=== PATIENT | female | born 1940 | race Caucasian/White ===

== ENCOUNTER → 2020-06-20 10:47 | Outpatient (BNVA) | payer MEDICARE, SELFPAY | PROVIDERS: PCP Internal Medicine; Visit Provider Surgery | DX: C44.722 Squamous cell carcinoma of skin of right lower limb, including hip (principal) | CPT/HCPCS: 99212 ==

== ENCOUNTER 2020-06-25 10:21 | Outpatient (REF) | payer MEDICARE, SELFPAY ==
[2020-06-25 10:53] VITALS: BP 170/84; PULSE 82; RESP 18; TEMP 36; O2SAT 99; BMI 28.3
--- NOTE | 2020-06-25 12:15 | W.PM.OPN ---
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 She presents now with a new hard lesion located in the right ellis at the site of a previous excision consistent with a recurrence squamous cell carcinoma. She presents today for wide excision. Operative findings: Patient was found to have a 1.5 cm raised hard lesion in the right ellis which was excised using a 2 mm margin circumferentially. The wounds were closed primarily. Specimen: Skin lesion right ellis Estimated blood loss: 5 mL Complications: None Procedure details: Patient was brought to the OR and placed in a supine position. A surgical time-out was called the consent confirmed. Right leg was prepped with ChloraPrep and draped in a sterile fashion. Local anesthesia consisting of 1% lidocaine with epinephrine was then infiltrated circumferentially around the lesion in the right ellis. An elliptical incision oriented longitudinally was then created with a scalpel. This carried out through subcutaneous tissue down to muscle fascia. It was then excised off the muscle fascia. Hemostasis was assured using electrocautery. The lesion was passed off the table and sent to pathology for further examination. Wounds were irrigated with saline solution and suctioned dry. Dermis was then reapproximated using interrupted 3-0 Polysorb sutures. Skin was closed using interrupted 4-0 nylon sutures. Sterile dressings including 2 x 2 gauze Tegaderm followed by a Ladi dressing was then applied. The patient tolerated the procedure well. Sponge, instrument, and needle counts were correct. Patient was discharged to home in stable condition.
--- NOTE | 2020-06-25 12:20 | P.BOP_ITS ---
Brief Operative Note Date of Service: 06/25/20 Pre-op diagnosis: Skin lesion right ellis Post-op diagnosis: same Procedure: Wide excision of skin lesion right ellis Implants: None Surgeon: Duke Reed MD Anesthesia: local Airplane Captain: Aide Bolden Estimated blood loss (mL): 5 Pathology: other (Skin lesion right ellis) Condition: stable Disposition: other (Home)
== END 2020-06-25 10:22 | disposition home or self-care (01) ==
LOC: HO.MS 10:21
PROVIDERS: PCP Internal Medicine; Visit Provider Surgery
PROC: (CPT 11606; principal; 2020-06-25 10:40)
DX: C44.722 Squamous cell carcinoma of skin of right lower limb, including hip (principal)
CPT/HCPCS: 11606; 12032; 88305

== ENCOUNTER → 2020-07-03 09:16 | Outpatient (BNVA) | payer MEDICARE, SELFPAY | PROVIDERS: PCP Internal Medicine; Visit Provider Surgery | DX: C44.722 Squamous cell carcinoma of skin of right lower limb, including hip (principal) | CPT/HCPCS: 99212 ==

== ENCOUNTER 2020-08-24 08:20 | Outpatient (REF) | payer MEDICARE, SELFPAY ==
[2020-08-24 11:38] LABS: Hematocrit 35.4 % (37-47); Hemoglobin 11.7 g/dl (12.0-16.0); Mean Corpuscular HGB Conc 33.1 g/dl (31.0-35.0); Mean Corpuscular Hemoglobin 32.4 pg (27.0-33.0); Mean Corpuscular Volume 98.1 fL (80-98); Mean Platelet Volume 12.4 fL (9.4-12.3); Platelet Count 171 X10*3/uL (160-400); Red Blood Count 3.61 X10*6/uL (4.20-5.50); Red Cell Distribution Width 12.6 % (11.0-16.0); White Blood Count 4.7 X10*3/uL (4.8-10.8)
[2020-08-24 12:00] LABS: Alanine Aminotransferase 19 U/L (0-31); Albumin Level 4.9 g/dL (3.5-5.0); Alkaline Phosphatase 59 U/L (39-117); Anion Gap 15 (12-20); Aspartate Amino Transferase 17 U/L (5-31); Bilirubin Total 0.6 mg/dL (0.0-1.0); Blood Urea Nitrogen 38 mg/dL (9-16); Calcium 9.2 mg/dL (8.4-10.2); Carbon Dioxide 24 mmol/L (22-29); Chloride 102 mmol/L (96-108); Cholesterol 188 mg/dL; Estimated Average Glucose 154 mg/dL; Estimated Glomerular Filt Rate 34; Glucose Fasting 158 mg/dL (60-99); HDL Cholesterol 69 mg/dL; LDL Cholesterol Calculated 93 mg/dl; Potassium 4.4 mmol/L (3.3-5.1); Sodium 137 mmol/L (135-145); Total Protein 7.4 g/dL (6.5-8.0); Triglycerides 133 mg/dL
[2020-08-24 12:03] LABS: TSH reflex Free T4 1.28 uIU/mL (0.32-4.0); Vitamin D 25-OH Total 47.1 ng/mL (>30)
[2020-08-24 12:10] LABS: Microalbum/Creatinine Ratio Ur 57.1 ug/mg cr
== END 2020-08-24 08:21 | disposition home or self-care (01) ==
LOC: HO.HMGCLDS 08:20
PROVIDERS: PCP Internal Medicine; Visit Provider Internal Medicine
DX: C44.722 Squamous cell carcinoma of skin of right lower limb, including hip (principal); E11.9 Type 2 diabetes mellitus without complications; E78.5 Hyperlipidemia, unspecified; I10 Essential (primary) hypertension
CPT/HCPCS: 36415; 80053; 80061; 82043; 82306; 83036; 84443; 85027

== ENCOUNTER 2020-09-20 10:32 | Outpatient (REF) | payer MEDICARE, SELFPAY ==
[2020-09-20 14:37] LABS: Anion Gap 15 (12-20); Blood Urea Nitrogen 28 mg/dL (9-16); Calcium 9.5 mg/dL (8.4-10.2); Carbon Dioxide 24 mmol/L (22-29); Chloride 99 mmol/L (96-108); Estimated Glomerular Filt Rate 39; Glucose Random 273 mg/dL (60-115); Potassium 4.5 mmol/L (3.3-5.1); Sodium 133 mmol/L (135-145)
== END 2020-09-20 10:33 | disposition home or self-care (01) ==
LOC: HO.HMGCLDS 10:32
PROVIDERS: PCP Internal Medicine; Visit Provider Internal Medicine
DX: E11.9 Type 2 diabetes mellitus without complications (principal); E78.5 Hyperlipidemia, unspecified; I10 Essential (primary) hypertension
CPT/HCPCS: 36415; 80048

== ENCOUNTER 2020-10-17 09:15 | Outpatient (REF) | payer MEDICARE, SELFPAY ==
--- NOTE | ~2020-10-17 | MM_ITS ---
EXAMINATION: MM SCREENING DIGITAL BREAST TOMOSYNTHESIS, BILATERAL CLINICAL INFORMATION: Screening. Asymptomatic. The lifetime risk of breast cancer based on the Tyrer-Cuzick Model is 6%. COMPARISON: Mammography: 07/21/2018, 06/03/2017, 04/07/2016, 04/03/2015 TECHNIQUE: Digital breast tomosynthesis is performed in both the craniocaudal and mediolateral oblique views along with computer-aided detection (CAD). Synthesized 2D images are generated from the tomosynthesis. FINDINGS: There are scattered areas of fibroglandular density (ACR BI-RADS breast composition Category b). Breast parenchymal pattern is similar to prior studies. Again, there is asymmetry breast size, left side larger with chronic global parenchymal asymmetry upper outer quadrant. There is no developing density or interval mass or architectural abnormality. No abnormal calcifications. Small dermal lesion again seen posterior medial right breast. Prominent draining veins upper left breast are stable from prior studies. The axilla and skin contours are unremarkable. MM/MM tomosynthesis screening BI IMPRESSION: No significant changes from prior studies. ASSESSMENT: BI-RADS 2: Benign RECOMMENDATION: Routine annual mammography screening. This patient's information was entered into a reminder system with a target due date for their next mammogram.
== END 2020-10-17 09:16 | disposition home or self-care (01) ==
LOC: HO.MAMMO 09:15
PROVIDERS: Visit Provider Internal Medicine
DX: Z12.31 Encounter for screening mammogram for malignant neoplasm of breast (principal)
CPT/HCPCS: 77063; 77067

== ENCOUNTER 2020-12-26 07:51 | Outpatient (REF) | payer MEDICARE, SELFPAY ==
[2020-12-26 11:09] LABS: MANUAL DIFF FLAG NO
[2020-12-26 11:22] LABS: Basophils Percent Auto 0.8 % (0-2); Eosinophils Absolute Auto 0.1 X10*3/uL (0.0-0.4); Eosinophils Percent Auto 1.5 % (0-4); Hematocrit 34.4 % (37-47); Hemoglobin 11.6 g/dl (12.0-16.0); Imm Gran Abs Auto 0.01 X10*3/uL (0.00-0.03); Imm Gran Pct Auto 0.2 % (0.0-0.4); Lymphocytes Absolute Auto 1.7 X10*3/uL (1.2-4.9); Lymphocytes Percent Auto 36.7 % (20-40); Mean Corpuscular HGB Conc 33.7 g/dl (31.0-35.0); Mean Corpuscular Hemoglobin 32.1 pg (27.0-33.0); Mean Corpuscular Volume 95.3 fL (80-98); Mean Platelet Volume 12.4 fL (9.4-12.3); Monocytes Absolute Auto 0.4 X10*3/uL (0.1-1.2); Monocytes Percent Auto 8.9 % (2-11); Neutrophils Absolute Auto 2.5 X10*3/uL (2.0-8.3); Neutrophils Percent Auto 51.9 % (45-73); Platelet Count 155 X10*3/uL (160-400); Red Blood Count 3.61 X10*6/uL (4.20-5.50); Red Cell Distribution Width 12.3 % (11.0-16.0); White Blood Count 4.7 X10*3/uL (4.8-10.8)
[2020-12-26 11:23] LABS: Glucose Urine UA NEG (NEG); Leukocyte Esterase Urine 1+ (NEG); Nitrite Urine NEG (NEG); Specific Gravity - Urine 1.015 (1.005-1.025); Urine Blood NEG (NEG); Urine Ketones NEG (NEG); Urine Protein NEG (NEG-TRACE)
[2020-12-26 11:36] LABS: Appearance Urine HAZY; Color Urine YELLOW
[2020-12-26 11:48] LABS: Calcium Oxalate Crystals Urine 2+ /LPF; RBC Urine 0-2 /HPF (0); Renal Epithelial Cells Urine 1+ /LPF; Squamous Epithelial Cell Urine 2+ /LPF
[2020-12-26 12:26] LABS: Iron 101 mcg/dL (30-160); Percent Iron Saturation 32 % (15-50); Total Iron Binding Capacity 313 mcg/dL (228-428); Unsaturated Iron Binding 212 ug/dL
[2020-12-26 12:29] LABS: Estimated Average Glucose 154 mg/dL
[2020-12-26 13:55] LABS: Creatinine Urine 78.99 mg/dL; Microalbum/Creatinine Ratio Ur 54.4 ug/mg cr
== END 2020-12-26 07:52 | disposition home or self-care (01) ==
LOC: HO.HMGCLDS 07:51
PROVIDERS: PCP Internal Medicine; Visit Provider Internal Medicine
DX: E11.9 Type 2 diabetes mellitus without complications (principal); E78.5 Hyperlipidemia, unspecified; I10 Essential (primary) hypertension
CPT/HCPCS: 36415; 81001; 82043; 83036; 83540; 85025

== ENCOUNTER 2021-06-27 08:21 | Outpatient (REF) | payer MEDICARE, SELFPAY ==
[2021-06-27 11:32] LABS: Alanine Aminotransferase 13 U/L (0-31); Albumin Level 4.7 g/dL (3.5-5.0); Alkaline Phosphatase 58 U/L (39-117); Anion Gap 15 (12-20); Aspartate Amino Transferase 15 U/L (5-31); Bilirubin Total 0.6 mg/dL (0.0-1.0); Blood Urea Nitrogen 37 mg/dL (9-16); Calcium 9.5 mg/dL (8.4-10.2); Carbon Dioxide 22 mmol/L (22-29); Chloride 104 mmol/L (96-108); Cholesterol 180 mg/dL; Estimated Glomerular Filt Rate 33; Glucose Fasting 184 mg/dL (60-99); HDL Cholesterol 67 mg/dL; LDL Cholesterol Calculated 91 mg/dl; Potassium 4.6 mmol/L (3.3-5.1); Sodium 136 mmol/L (135-145); Total Protein 7.4 g/dL (6.5-8.0); Triglycerides 112 mg/dL
[2021-06-27 11:37] LABS: Estimated Average Glucose 151 mg/dL; Hemoglobin A1c % 6.9 %
[2021-06-27 12:41] LABS: Creatinine Urine 96.09 mg/dL
== END 2021-06-27 08:22 | disposition home or self-care (01) ==
LOC: HO.HMGCLDS 08:21
PROVIDERS: PCP Internal Medicine; Visit Provider Internal Medicine
DX: E11.22 Type 2 diabetes mellitus with diabetic chronic kidney disease (principal); I12.9 Hypertensive chronic kidney disease with stage 1 through stage 4 chronic kidney disease, or unspecified chronic kidney disease; N18.30 Chronic kidney disease, stage 3 unspecified; E78.5 Hyperlipidemia, unspecified
CPT/HCPCS: 36415; 80053; 80061; 82043; 83036

== ENCOUNTER → 2021-06-28 09:22 | Outpatient (BNVA) | payer MEDICARE, SELFPAY | PROVIDERS: PCP Internal Medicine; Referring Provider Internal Medicine; Visit Provider Surgery | DX: L72.0 Epidermal cyst (principal) | CPT/HCPCS: 99212 ==

== ENCOUNTER → 2021-07-23 13:39 | Outpatient (BNVA) | payer MEDICARE, SELFPAY | PROVIDERS: PCP Internal Medicine; Visit Provider Surgery | DX: L72.0 Epidermal cyst (principal); E11.22 Type 2 diabetes mellitus with diabetic chronic kidney disease; I12.9 Hypertensive chronic kidney disease with stage 1 through stage 4 chronic kidney disease, or unspecified chronic kidney disease; N18.30 Chronic kidney disease, stage 3 unspecified; E78.5 Hyperlipidemia, unspecified; C76.51 Malignant neoplasm of right lower limb; Z91.010 Allergy to peanuts; Z79.84 Long term (current) use of oral hypoglycemic drugs; Z79.899 Other long term (current) drug therapy | CPT/HCPCS: 99212 ==

== ENCOUNTER 2021-11-21 10:23 | Outpatient (REF) | payer MEDICARE, SELFPAY ==
--- NOTE | ~2021-11-21 | MM_ITS ---
EXAMINATION: MM SCREENING DIGITAL BREAST TOMOSYNTHESIS, BILATERAL CLINICAL INFORMATION: Screening. Asymptomatic. The lifetime risk of breast cancer based on the Tyrer-Cuzick Model is 4%. COMPARISON: Mammography: 10/17/2020, 07/21/2018, 06/03/2017 TECHNIQUE: Digital breast tomosynthesis is performed in both the craniocaudal and mediolateral oblique views along with computer-aided detection (CAD). Synthesized 2D images are generated from the tomosynthesis. FINDINGS: There are scattered areas of fibroglandular density (ACR BI-RADS breast composition Category b). There is asymmetry of the breasts, left side larger with chronic stable regional parenchymal asymmetry left upper outer quadrant similar to prior studies. Again, there are some prominent draining veins upper left breast and axilla. Other fibroglandular densities in each breast are also stable. There is no developing density or architectural abnormality or abnormal calcifications. No significant changes. MM/MM tomosynthesis screening BI IMPRESSION: No significant changes from prior exams. ASSESSMENT: BI-RADS 2: Benign RECOMMENDATION: Routine annual mammography screening. This patient's information was entered into a reminder system with a target due date for their next mammogram.
== END 2021-11-21 10:24 | disposition home or self-care (01) ==
LOC: HO.MAMMO 10:23
PROVIDERS: Visit Provider Internal Medicine
DX: Z12.31 Encounter for screening mammogram for malignant neoplasm of breast (principal)
CPT/HCPCS: 77063; 77067

== ENCOUNTER 2021-12-19 08:17 | Outpatient (REF) | payer MEDICARE, SELFPAY ==
[2021-12-19 11:26] LABS: Hematocrit 35.1 % (37.0-47.0); Hemoglobin 11.6 g/dl (12.0-16.0); Mean Platelet Volume 11.7 fL (9.4-12.3); Platelet Count 181 X10*3/uL (160-400); Red Blood Count 3.62 X10*6/uL (4.20-5.50); Red Cell Distribution Width 12.5 % (11.0-16.0); White Blood Count 4.8 X10*3/uL (4.8-10.8)
[2021-12-19 11:41] LABS: Alanine Aminotransferase 18 U/L (0-31); Albumin Level 4.7 g/dL (3.5-5.0); Alkaline Phosphatase 61 U/L (39-117); Anion Gap 17 (12-20); Aspartate Amino Transferase 17 U/L (5-31); Bilirubin Total 0.6 mg/dL (0.0-1.0); Blood Urea Nitrogen 28 mg/dL (9-16); Calcium 9.5 mg/dL (8.4-10.2); Carbon Dioxide 22 mmol/L (22-29); Chloride 104 mmol/L (96-108); Estimated Glomerular Filt Rate 39; Glucose Fasting 163 mg/dL (60-99); Iron 87 mcg/dL (30-160); Percent Iron Saturation 27 % (15-50); Potassium 4.4 mmol/L (3.3-5.1); Sodium 139 mmol/L (135-145); Total Iron Binding Capacity 323 mcg/dL (228-428); Total Protein 7.4 g/dL (6.5-8.0); Unsaturated Iron Binding 236 ug/dL
[2021-12-19 11:49] LABS: Estimated Average Glucose 143 mg/dL; Hemoglobin A1c % 6.6 %
[2021-12-19 12:06] LABS: Vitamin D 25-OH Total 58.7 ng/mL (>30)
[2021-12-19 12:13] LABS: Folate > 20.0 ng/mL (> or = 4.0); Vitamin B12 782 pg/mL (200-900)
== END 2021-12-19 08:18 | disposition home or self-care (01) ==
LOC: HO.HMGCLDS 08:17
PROVIDERS: PCP Internal Medicine; Visit Provider Internal Medicine
DX: E78.5 Hyperlipidemia, unspecified (principal); I12.9 Hypertensive chronic kidney disease with stage 1 through stage 4 chronic kidney disease, or unspecified chronic kidney disease; N18.30 Chronic kidney disease, stage 3 unspecified; E11.22 Type 2 diabetes mellitus with diabetic chronic kidney disease
CPT/HCPCS: 36415; 80053; 82306; 82607; 82746; 83036; 83540; 85027

== ENCOUNTER 2022-06-27 07:46 | Outpatient (REF) | payer MEDICARE, SELFPAY ==
[2022-06-27 11:35] LABS: MANUAL DIFF FLAG NO
[2022-06-27 11:58] LABS: Basophils Absolute Auto 0.1 X10*3/uL (0.0-0.2); Basophils Percent Auto 1.1 % (0-2); Eosinophils Absolute Auto 0.1 X10*3/uL (0.0-0.4); Eosinophils Percent Auto 1.7 % (0-4); Hematocrit 36.2 % (37.0-47.0); Hemoglobin 12.3 g/dl (12.0-16.0); Imm Gran Abs Auto 0.01 X10*3/uL (0.00-0.03); Imm Gran Pct Auto 0.2 % (0.0-0.4); Lymphocytes Absolute Auto 1.8 X10*3/uL (1.2-4.9); Lymphocytes Percent Auto 38.5 % (20-40); Monocytes Absolute Auto 0.3 X10*3/uL (0.1-1.2); Neutrophils Absolute Auto 2.4 x10*3/uL (2.0-8.3); Neutrophils Percent Auto 51.5 % (45-73); Platelet Count 172 X10*3/uL (160-400); Red Blood Count 3.62 X10*6/uL (4.20-5.50); Red Cell Distribution Width 12.3 % (11.0-16.0); White Blood Count 4.6 X10*3/uL (4.8-10.8)
[2022-06-27 12:20] LABS: Estimated Average Glucose 154 mg/dL
[2022-06-27 12:43] LABS: Alanine Aminotransferase 19 U/L (0-31); Albumin Level 4.7 g/dL (3.5-5.0); Alkaline Phosphatase 65 U/L (39-117); Anion Gap 17 (12-20); Aspartate Amino Transferase 19 U/L (5-31); Bilirubin Total 0.9 mg/dL (0.0-1.0); Blood Urea Nitrogen 26 mg/dL (9-16); Calcium 9.7 mg/dL (8.4-10.2); Carbon Dioxide 23 mmol/L (22-29); Chloride 103 mmol/L (96-108); Cholesterol 211 mg/dL; Estimated Glomerular Filt Rate 41; Glucose Fasting 187 mg/dL (60-99); HDL Cholesterol 88 mg/dL; LDL Cholesterol Calculated 91 mg/dl; Potassium 4.8 mmol/L (3.3-5.1); Sodium 138 mmol/L (135-145); Total Protein 7.3 g/dL (6.5-8.0); Triglycerides 162 mg/dL
[2022-06-27 13:01] LABS: Folate 19.9 ng/mL (> or = 4.0); TSH reflex Free T4 1.65 uIU/mL (0.32-4.0); Vitamin B12 652 pg/mL (200-900)
== END 2022-06-27 07:47 | disposition home or self-care (01) ==
LOC: HO.HMGCLDS 07:46
PROVIDERS: PCP Internal Medicine; Visit Provider Internal Medicine
DX: I12.9 Hypertensive chronic kidney disease with stage 1 through stage 4 chronic kidney disease, or unspecified chronic kidney disease (principal); E11.22 Type 2 diabetes mellitus with diabetic chronic kidney disease; N18.30 Chronic kidney disease, stage 3 unspecified; R41.3 Other amnesia; E78.5 Hyperlipidemia, unspecified
CPT/HCPCS: 36415; 80053; 80061; 82607; 82746; 83036; 84443; 85025

== ENCOUNTER → 2022-10-23 08:55 | Outpatient (BNVA) | payer MEDICARE, SELFPAY | PROVIDERS: PCP Internal Medicine; Visit Provider Psychiatry & Neurology Neurology | DX: G31.84 Mild cognitive impairment of uncertain or unknown etiology (principal); F41.9 Anxiety disorder, unspecified | CPT/HCPCS: 99202 ==

== ENCOUNTER 2022-11-04 14:24 | Outpatient (REF) | payer MEDICARE, SELFPAY ==
[2022-11-04 16:16] LABS: Basophils Absolute Auto 0.1 X10*3/uL (0.0-0.2); Eosinophils Percent Auto 0.3 % (0-4); Hematocrit 33.1 % (37.0-47.0); Hemoglobin 11.4 g/dl (12.0-16.0); Imm Gran Abs Auto 0.04 X10*3/uL (0.00-0.03); Imm Gran Pct Auto 0.4 % (0.0-0.4); Lymphocytes Absolute Auto 1.3 X10*3/uL (1.2-4.9); Lymphocytes Percent Auto 14.7 % (20-40); MANUAL DIFF FLAG NO; Mean Corpuscular HGB Conc 34.4 g/dl (31.0-35.0); Mean Corpuscular Hemoglobin 32.8 pg (27.0-33.0); Mean Corpuscular Volume 95.1 fL (80.0-98.0); Monocytes Absolute Auto 0.8 X10*3/uL (0.1-1.2); Monocytes Percent Auto 8.8 % (2-11); Neutrophils Absolute Auto 6.7 x10*3/uL (2.0-8.3); Neutrophils Percent Auto 74.8 % (45-73); Platelet Count 314 X10*3/uL (160-400); Red Blood Count 3.48 X10*6/uL (4.20-5.50); Red Cell Distribution Width 11.5 % (11.0-16.0)
[2022-11-04 16:43] LABS: Estimated Average Glucose 143 mg/dL; Hemoglobin A1C 150.7785 umol/L; Hemoglobin A1c % 6.6 %
[2022-11-04 16:54] LABS: Alanine Aminotransferase 16 U/L (0-31); Albumin Level 4.4 g/dL (3.5-5.0); Alkaline Phosphatase 80 U/L (39-117); Anion Gap 14 (12-20); Aspartate Amino Transferase 16 U/L (5-31); Bilirubin Total 0.5 mg/dL (0.0-1.0); Blood Urea Nitrogen 27 mg/dL (9-16); Calcium 10.3 mg/dL (8.4-10.2); Carbon Dioxide 27 mmol/L (22-29); Chloride 91 mmol/L (96-108); Estimated Glomerular Filt Rate 44; Glucose Random 155 mg/dL (60-115); Iron 30 mcg/dL (30-160); Percent Iron Saturation 12 % (15-50); Potassium 4.6 mmol/L (3.3-5.1); Sodium 127 mmol/L (135-145); Total Iron Binding Capacity 245 mcg/dL (228-428); Total Protein 8.1 g/dL (6.5-8.0); Unsaturated Iron Binding 215 ug/dL
[2022-11-04 16:57] LABS: Erythrocyte Sedimentation Rate 45 MM/HR (0-20)
[2022-11-04 17:09] LABS: TSH reflex Free T4 0.82 uIU/mL (0.32-4.0)
[2022-11-06 17:53] LABS: CRP High Sensitivity >10.0 mg/L
== END 2022-11-04 14:25 | disposition home or self-care (01) ==
LOC: HO.HMGCLDS 14:24
PROVIDERS: PCP Internal Medicine; Visit Provider Internal Medicine
DX: I12.9 Hypertensive chronic kidney disease with stage 1 through stage 4 chronic kidney disease, or unspecified chronic kidney disease (principal); E11.22 Type 2 diabetes mellitus with diabetic chronic kidney disease; N18.30 Chronic kidney disease, stage 3 unspecified; M79.10 Myalgia, unspecified site; E78.5 Hyperlipidemia, unspecified
CPT/HCPCS: 36415; 80053; 82550; 83036; 83540; 84443; 85025; 85652; 86141

== ENCOUNTER 2022-11-05 09:14 | Outpatient (REF) | payer MEDICARE, SELFPAY ==
--- NOTE | ~2022-11-05 | MR_ITS ---
EXAMINATION: MR BRAIN WITHOUT CONTRAST CLINICAL INFORMATION: Mild cognitive impairment of uncertain or unknown etiology. COMPARISON: None available. TECHNIQUE: Multiplanar, multisequence MR imaging was performed through the brain without the use of intravenous gadolinium. Additional high-resolution anatomic imaging was performed through the brain and images were submitted for post processing including auto-segmentation and volumetric analysis. FINDINGS: There is no acute infarction, hemorrhage, mass, or extra-axial fluid collection. There is nonspecific T2/FLAIR hyperintensity within the cerebral white matter. There is subjective impression of mild diffuse brain parenchymal volume loss. No hydrocephalus is seen. The arterial flow voids appear preserved at the skull base. There is a small amount of mastoid fluid. Bilateral lens replacements are noted. Incidentally noted is a 2.1 cm ovoid lesion within the left mandibular subcutaneous fat, possibly an epidermal inclusion cyst. Baseline NeuroQuant morphometric assessment of the brain was performed. Hippocampal volumes have an age-adjusted normative percentile of 17%. The lateral ventricles have a normative percentile of 3%, and the inferior lateral ventricles have a normative percentile of 7%. MR/MR brain wo con w neuroquant IMPRESSION: The baseline morphometric assessment demonstrates normal hippocampal volumes with normal hippocampal occupants the volume and borderline enlargement of the temporal horns. The findings do not support hippocampal neurodegeneration. No intracranial mass, acute abnormality, or evidence of hydrocephalus. Nonspecific signal changes in the cerebral white matter, likely on the basis of chronic microangiopathy. 2.1 cm ovoid lesion in the left mandibular subcutaneous fat, possibly an epidermal inclusion cyst.
== END 2022-11-05 09:15 | disposition home or self-care (01) ==
LOC: HO.MRI 09:14
PROVIDERS: PCP Internal Medicine; Visit Provider Psychiatry & Neurology Neurology
DX: F03.90 Unspecified dementia, unspecified severity, without behavioral disturbance, psychotic disturbance, mood disturbance, and anxiety (principal)
CPT/HCPCS: 70551; 76377

== ENCOUNTER 2022-11-11 12:01 | Outpatient (REF) | payer MEDICARE, SELFPAY ==
[2022-11-11 14:34] LABS: Anion Gap 19 (12-20); Blood Urea Nitrogen 27 mg/dL (9-16); Calcium 10.6 mg/dL (8.4-10.2); Carbon Dioxide 23 mmol/L (22-29); Chloride 96 mmol/L (96-108); Estimated Glomerular Filt Rate 45; Glucose Random 229 mg/dL (60-115); Potassium 4.5 mmol/L (3.3-5.1); Sodium 133 mmol/L (135-145)
== END 2022-11-11 12:02 | disposition home or self-care (01) ==
LOC: HO.HMGCLDS 12:01
PROVIDERS: PCP Internal Medicine; Visit Provider Internal Medicine
DX: E87.1 Hypo-osmolality and hyponatremia (principal)
CPT/HCPCS: 36415; 80048

== ENCOUNTER 2022-11-19 11:22 | Outpatient (REF) | payer MEDICARE, SELFPAY ==
[2022-11-21 11:24] LABS: Calcium, Ionized 5.2 mg/dL (4.7-5.5)
== END 2022-11-19 11:23 | disposition home or self-care (01) ==
LOC: HO.HMGCLDS 11:22
PROVIDERS: PCP Internal Medicine; Visit Provider Nurse Practitioner Family
DX: E83.52 Hypercalcemia (principal)
CPT/HCPCS: 36415; 82306; 82330; 83970

== ENCOUNTER 2022-12-03 11:52 | Outpatient (AMB) | payer MEDICARE, SELFPAY ==
[2022-12-03 11:57] VITALS: BP 122/64; PULSE 94; O2SAT 97; BMI 22.0
--- NOTE | 2022-12-03 11:57 | A.OFFPC_ITS ---
Vital Signs 12/03/22 11:57 Height 5 ft 5 in Weight 132 lb BMI 22.0 BP 122/64 Blood Pressure Location Lt brachial Position Sitting Pulse 94 Pulse Source Pulse Oximeter Pulse Oximetry (%) 97 Oxygen Delivery Method Room Air Intake Visit Reasons: 1 month follow up Wrist, Elbow, Shoulder Intake Note: Pt is here today for 1 month follow up visit. Allergies peanuts Allergy (Unknown, Uncoded 12/03/22 12:07) anaphylaxis Medication List - Last Reconciled 12/03/22 by Elana Rubio MD amlodipine 2.5 mg PO DAILY citalopram 10 mg PO DAILY fluorouracil 5% appl topical ibuprofen 400 mg PO Q8H PRN lidocaine 5% 1 patch topical DAILY lisinopril 10 mg PO DAILY metformin ER 500 mg PO BEDTIME simvastatin 10 mg PO BEDTIME Tobacco use date assessed: 11/04/22 Dental Screening Dental Screen Date: 12/03/22 Did you have a dental visit in the last 12 months?: Yes Did you have a dental problem in the last 6 months where you did not have access to dental care?: No Was dental information given to patient?: Patient has dentist HPI 1 month follow up Wrist, Elbow, Shoulder HPI Details Patient presents for the follow-up of upper and lower extremities myalgia and joint stiffness slightly better. Patient stop taking metformin in stead of simvastatin. Hypertension is controlled on current medications. [facility] Medical History Anxiety CKD (chronic kidney disease) stage 3, GFR 30-59 ml/min Cognitive impairment, mild, so stated Diabetes mellitus DM type 2 (diabetes mellitus, type 2) HTN (hypertension) Hyperlipidemia Skin growth Squamous cell carcinoma of right lower leg Surgical History History of excision of lesion (05/03/18) History of excision of lesion (05/30/09) History of excision of mass (02/20/15) History of hand surgery History of squamous cell carcinoma excision (08/13/18) History of tonsillectomy and adenoidectomy Status post cataract surgery Family History (Updated 11/04/22 @ 14:05 by Merari Perez Emerald) Mother No problems noted. Father No problems noted. Daughter History of breast cancer Paternal Grandmother Breast cancer Social History Housing: House Alcohol intake: current Alcohol intake frequency: holidays/special occasions only Patient Tobacco Use Status: Never used Tobacco e-Cigarette/Vaping Use: Never Used Current occupational status: retired Cognitive needs: No Hearing needs: No Vision needs: Yes Questionnaire Thrive Questionnaire Date Thrive assessed: 06/23/22 ANAYELI-7 AMB Questionnaire ANAYELI-7 Date ANAYELI - 7 assessed: 06/23/22 Source: Developed by Drs. Trey Dolan, Tova Pereira, Cholo Damon and colleagues, with an educational alvaro from [employer]. Review of Systems Const All systems reviewed & are unremarkable except as noted in HPI and below Reports no additional complaints Eyes Reports no additional complaints ENT Reports no additional complaints Card Reports no additional complaints Resp Reports no additional complaints GI Reports no additional complaints Reports no additional complaints Physical exam (Primary Care) Vital Signs: Last Vital Signs Pulse 94 12/03/22 11:57 BP 122/64 12/03/22 11:57 Pulse Ox 97 12/03/22 11:57 Oxygen Delivery Method Room Air 12/03/22 11:57 BMI result Body Mass Index 22.0 Tobacco/Smoking Status: Tobacco use Status Tobacco use date assessed 11/04/22 12/03/22 12:04 Patient Tobacco Use Status Never used Tobacco 12/03/22 12:04 e-Cigarette/Vaping Use Never Used 12/03/22 12:04 Thrive Assessment: Date of Thrive Assessment Date Thrive assessed 06/23/22 12/03/22 12:04 Const General: no acute distress HENMT Head: Yes normal to inspection Ears: hearing grossly normal bilaterally Eyes General: appearance normal, both eyes and all related structures Neck Neck: Yes supple Resp Effort & Inspection: normal respiratory effort Auscultation: clear to auscultation bilaterally Cardio Rhythm: regular rhythm Heart sounds: S1 normal heart sound present and S2 normal heart sound present GI Inspection: Yes normal to inspection Palpation (GI): Soft to palpation Extrem Other: Decreased range of motion and stiffness of both shoulders and knees, there is no tenderness over large muscle groups no joint swelling erythema warmth Assessment and Plan Assessment & Plan (1) DM type 2 (diabetes mellitus, type 2): Code(s): E11.9 - Type 2 diabetes mellitus without complications Plan: Continue ADA diet increase physical activity check A1c and 3 months off metformin (2) CKD (chronic kidney disease) stage 3, GFR 30-59 ml/min: Code(s): N18.30 - Chronic kidney disease, stage 3 unspecified Plan: Monitor renal function avoid NSAID (3) Hyperlipidemia: Comment: . Simvastatin because of myalgia Code(s): E78.5 - Hyperlipidemia, unspecified Plan: Patient was advised to stop simvastatin because of myalgia (4) HTN (hypertension): Code(s): I10 - Essential (primary) hypertension Plan: Continue current medications (5) Muscular pain: Code(s): M79.10 - Myalgia, unspecified site Plan: stop Simvastatin and check sed rate Orders: Orders Erythrocyte Sedimentation Rate Today E11.9 - Type 2 diabetes mellitus without complications, E78.5 - Hyperlipidemia, unspecified, I10 - Essential (primary) hypertension, N18.30 - Chronic kidney disease, stage 3 unspecified Comprehensive [place]. Panel Fast 3 Months E11.9 - Type 2 diabetes mellitus without complications, E78.5 - Hyperlipidemia, unspecified, I10 - Essential (primary) hypertension, N18.30 - Chronic kidney disease, stage 3 unspecified Hemoglobin A1c 3 Months E11.9 - Type 2 diabetes mellitus without complications, E78.5 - Hyperlipidemia, unspecified, I10 - Essential (primary) hypertension, N18.30 - Chronic kidney disease, stage 3 unspecified Lipid Panel 3 Months E11.9 - Type 2 diabetes mellitus without complications, E78.5 - Hyperlipidemia, unspecified, I10 - Essential (primary) hypertension, N18.30 - Chronic kidney disease, stage 3 unspecified Microalbumin, Random (w Creat) 3 Months E11.9 - Type 2 diabetes mellitus without complications, E78.5 - Hyperlipidemia, unspecified, I10 - Essential (primary) hypertension, N18.30 - Chronic kidney disease, stage 3 unspecified Complete Blood Count Auto Diff 3 Months E11.9 - Type 2 diabetes mellitus without complications, E78.5 - Hyperlipidemia, unspecified, I10 - Essential (primary) hypertension, N18.30 - Chronic kidney disease, stage 3 unspecified Coding Level of Care Code Est Pt Level 4 (26348) Diagnoses DM type 2 (diabetes mellitus, type 2) E11.9 CKD (chronic kidney disease) stage 3, GFR 30-59 ml/min N18.30 Hyperlipidemia E78.5 HTN (hypertension) I10 Muscular pain M79.10
== END 2022-12-03 13:03 | disposition home or self-care (01) ==
PROVIDERS: PCP Internal Medicine; Visit Provider Internal Medicine
DX: E11.22 Type 2 diabetes mellitus with diabetic chronic kidney disease (principal); I12.9 Hypertensive chronic kidney disease with stage 1 through stage 4 chronic kidney disease, or unspecified chronic kidney disease; N18.30 Chronic kidney disease, stage 3 unspecified; E78.5 Hyperlipidemia, unspecified; M79.10 Myalgia, unspecified site
CPT/HCPCS: 99214

== ENCOUNTER 2022-12-03 13:00 | Outpatient (REF) | payer MEDICARE, SELFPAY ==
[2022-12-03 17:06] LABS: Erythrocyte Sedimentation Rate 75 MM/HR (0-20)
== END 2022-12-03 13:01 | disposition home or self-care (01) ==
LOC: HO.HMGCLDS 13:00
PROVIDERS: PCP Internal Medicine; Visit Provider Internal Medicine
DX: E11.22 Type 2 diabetes mellitus with diabetic chronic kidney disease (principal); I12.9 Hypertensive chronic kidney disease with stage 1 through stage 4 chronic kidney disease, or unspecified chronic kidney disease; N18.30 Chronic kidney disease, stage 3 unspecified; E78.5 Hyperlipidemia, unspecified
CPT/HCPCS: 36415; 85652

== ENCOUNTER 2023-02-06 10:19 | Outpatient (AMB) | payer MEDICARE, SELFPAY ==
--- NOTE | 2023-02-06 10:28 | A.OFFVIS_ITS ---
Intake Vital Signs 02/06/23 10:29 Height 5 ft 5 in Weight 127 lb BMI 21.1 BP 130/90 H Blood Pressure Location Rt brachial Position Sitting Pulse 77 Pulse Source Pulse Oximeter Pulse Oximetry (%) 99 Oxygen Delivery Method Room Air Intake Visit Reasons: 3month f/u Amnesia-confirmed Intake Note: Pt presents today for fup amnesia, no improvement Allergies peanuts Allergy (Unknown, Uncoded 12/03/22 12:07) anaphylaxis HPI HPI Comments History of Present Illness Details 82y/o female comes for follow up of mem ory problems. she is accompanied by her sister who helps with history . she feels she is worse, confused with dates.MRI is nonspecific changes Citalopram 10 mg helped mildly with anxiety. The memory issues became noticeable about 1 year ago and has worsened since then. It is mostly short term memory issues. she may have difficulty recalling details of events. she frequently misplaces things, forgot where she parked the car,difficulty with directions,difficulty remembering conversations,repeats questions , she needs reminders for medications etc. Her helps with finances. No changes in behavior, personality , denies hallucinations. she denies snoring or sleep issues. No h/o head injury, no depression or anxiety. [facility] Medical History Anxiety Cognitive impairment, mild, so stated CKD (chronic kidney disease) stage 3, GFR 30-59 ml/min DM type 2 (diabetes mellitus, type 2) Hyperlipidemia HTN (hypertension) Squamous cell carcinoma of right lower leg Diabetes mellitus Skin growth Surgical History History of squamous cell carcinoma excision (08/13/18) History of excision of mass (02/20/15) History of hand surgery History of tonsillectomy and adenoidectomy History of excision of lesion (05/30/09) History of excision of lesion (05/03/18) Status post cataract surgery Family History Mother No problems noted. Father No problems noted. Daughter History of breast cancer Paternal Grandmother Breast cancer Social History Housing: House Alcohol intake: current Alcohol intake frequency: holidays/special occasions only Patient Tobacco Use Status: Never used Tobacco e-Cigarette/Vaping Use: Never Used Current occupational status: retired Cognitive needs: No Hearing needs: No Vision needs: Yes Physical Exam Vital Signs: Last Vital Signs Pulse 77 02/06/23 10:29 BP 130/90 H 02/06/23 10:29 Pulse Ox 99 02/06/23 10:29 Oxygen Delivery Method Room Air 02/06/23 10:29 BMI result Body Mass Index 21.1 Const General: no acute distress, alert and other (pale in color) Nutritional Appearance: average body habitus Orientation/consciousness: oriented to person, oriented to place and oriented to time Limitations: no limitations HEENT Head: Yes normal to inspection, Yes normocephalic and Yes atraumatic Ears: hearing grossly normal bilaterally Mouth: moist mucous membranes Eyes General: appearance normal, both eyes and all related structures Eyelids: Yes eyelids normal Conjunctivae: conjunctivae normal Sclerae: sclerae normal Pupils: Equal, round and reactive pupils present Neck Neck: Yes normal visual inspection, Yes full ROM, Yes no lymphadenopathy and Yes trachea midline Resp Effort & Inspection: normal respiratory effort, no cough, no respiratory distress and not tachypneic Auscultation: clear to auscultation bilaterally, no rhonchi and no wheezes Cardio Rate: regular rate Rhythm: regular rhythm Heart sounds: S1 normal heart sound present and S2 normal heart sound present Peripheral pulses: Peripheral pulses 2+ throughout GI Palpation (GI): Soft to palpation and nontender Auscultation: normal bowel sounds General: Yes no CVA tenderness Back/Spine/Pelvis Back: no CVA tenderness Skin General skin exam: no rashes or lesions noted and turgor normal Neuro General: oriented to person, oriented to place, oriented to time, gait normal and moves all extremities Cranial nerves: Yes CN's II-XII intact bilaterally, Yes Facial sensation intact/muscles of mastication intact, Yes Equal, round and reactive pupils present, Yes Bilaterally intact EOM present, Yes Nystagmus not present, Yes Normal facial strength present, Yes Midline tongue present and Yes Symmetric palate elevation present Cognition (Neuro): normal cognition Gait exam (Neuro): Normal gait present Motor exam (neuro): 5/5 motor strength present throughout and Normal motor muscle tone present throughout Coordination: [id number] test normal and tandem gait normal Extrem General: Yes normal to inspection, Yes full ROM, Yes capillary refill normal, Yes no clubbing, cyanosis or edema, Yes no calf tenderness and Yes other (bilateral biceps, and thighs tender to touch. ) Psych Appearance: well kempt Speech and movement: Clear speech present Affect: Labile affect present Attitude: cooperative Orientation What is the (year) (season) (date) (day) (month)?: year, season, day and month Where are we (state) (county) (town or city) (hospital) (floor)?: state, county, town or city, hospital/clinic and floor Registration Name of 3 unrelated objects clearly and slowly, then ask patient to repeat all 3 of them. (1st repeat determines score. Make sure they can repeat all three): object 1, object 2 and object 3 Attention & Calculation (CHOOSE ONE) Spell WORLD backwards (DLROW): 5 letters Language Show patient a wristwatch & ask what it is. Repeat for pencil.: watch and pencil Ask the patient to repeat the phrase 'No ifs, ands, or buts' after you.: correct Ask the patient to 'take a piece of paper with their right hand' 'fold paper in half' 'place paper on floor': take paper in right hand, fold paper in half and place paper on floor Print the sentence 'CLOSE YOUR EYES' on a piece. If patient actually closes eyes then score.: followed written direction Give patient a blank piece of paper & ask to write a sentence. Score if it contains a noun & verb.: sentence contains subject and verb Ask patient to copy figure of intersecting pentagons exactly. Score if all 10 angles & 2 intersects are included.: all 10 angles present & 2 are intersected Score Score: 26 Assessment & Plan Assessment & Plan (1) Cognitive impairment, mild, so stated: Code(s): G31.84 - Mild cognitive impairment of uncertain or unknown etiology (2) Anxiety: Code(s): F41.9 - Anxiety disorder, unspecified Plan MRI brain - nonspecific I will trial her on donepezil 5 mg qd and titrate to 10mg qd Vit B 12 TSH CBC CMP Vit D - normal Will consider neuropsych evaluation Increase citalopram 20mg qd for anxiety Cognitive therapy Orders: Orders OT Evaluation and Treatment Today G31.84 - Mild cognitive impairment of u ncertain or unknown etiology, R41.3 - Other amnesia Medications: New donepezil 1/2 tab qd for 4 weeks then 1 tab qd orally daily; 30 tabs 6RF Changed From citalopram 10 mg PO DAILY 30 tabs 6RF To citalopram 20 mg PO DAILY 30 tabs 6RF Coding Level of Care Code Est Pt Level 4 (47742) Diagnoses Cognitive impairment, mild, so stated G31.84 Anxiety F41.9
[2023-02-06 10:29] VITALS: BP 130/90; PULSE 77; O2SAT 99; BMI 21.1
== END 2023-02-06 10:56 | disposition home or self-care (01) ==
PROVIDERS: PCP Internal Medicine; Visit Provider Psychiatry & Neurology Neurology
DX: G31.84 Mild cognitive impairment of uncertain or unknown etiology (principal); F41.9 Anxiety disorder, unspecified
CPT/HCPCS: 99214

== ENCOUNTER → 2023-02-06 10:19 | Outpatient (BNVA) | payer MEDICARE, SELFPAY | PROVIDERS: PCP Internal Medicine; Visit Provider Psychiatry & Neurology Neurology | DX: G31.84 Mild cognitive impairment of uncertain or unknown etiology (principal); F41.9 Anxiety disorder, unspecified; Z79.899 Other long term (current) drug therapy | CPT/HCPCS: 99212 ==

== ENCOUNTER 2023-02-12 10:16 | Outpatient (REF) | payer MEDICARE, SELFPAY ==
--- NOTE | ~2023-02-12 | XR_ITS ---
EXAMINATION: XR SHOULDER, LEFT CLINICAL INFORMATION: Left shoulder pain. COMPARISON: None available. TECHNIQUE: AP external rotation, Grashey, scapular Y, and axillary views of the left shoulder. FINDINGS: Moderate acromioclavicular osteoarthritis with lateral downsloping and subacromial spurring. Mild superior subluxation of the humeral head, likely indicating underlying rotator cuff tendon tear. [id number] glenohumeral joint space narrowing with marginal osteophytes. No osseous erosion. No acute fracture. No abnormal soft tissue calcification. XR/XR shoulder LT min 2V IMPRESSION: Moderate acromioclavicular osteoarthritis with lateral downsloping and subacromial spurring. Mild superior subluxation of the humeral head, likely indicating underlying rotator cuff tendon tear. [id number] glenohumeral osteoarthritis.
[2023-02-12 11:32] LABS: MANUAL DIFF FLAG NO
[2023-02-12 12:34] LABS: Basophils Absolute Auto 0.1 X10*3/uL (0.0-0.2); Basophils Percent Auto 0.6 % (0-2); Eosinophils Percent Auto 0.3 % (0-4); Hematocrit 32.8 % (37.0-47.0); Hemoglobin 10.9 g/dl (12.0-16.0); Imm Gran Abs Auto 0.03 X10*3/uL (0.00-0.03); Imm Gran Pct Auto 0.3 % (0.0-0.4); Lymphocytes Absolute Auto 2.7 X10*3/uL (1.2-4.9); Lymphocytes Percent Auto 31.2 % (20-40); Mean Corpuscular HGB Conc 33.2 g/dl (31.0-35.0); Mean Corpuscular Hemoglobin 30.4 pg (27.0-33.0); Mean Corpuscular Volume 91.4 fL (80.0-98.0); Mean Platelet Volume 11.4 fL (9.4-12.3); Monocytes Absolute Auto 0.6 X10*3/uL (0.1-1.2); Monocytes Percent Auto 6.6 % (2-11); Neutrophils Absolute Auto 5.3 x10*3/uL (2.0-8.3); Platelet Count 242 X10*3/uL (160-400); Red Blood Count 3.59 X10*6/uL (4.20-5.50); Red Cell Distribution Width 12.4 % (11.0-16.0); White Blood Count 8.7 X10*3/uL (4.8-10.8)
[2023-02-12 13:08] LABS: Alanine Aminotransferase 17 U/L (0-31); Albumin Level 4.4 g/dL (3.5-5.0); Alkaline Phosphatase 68 U/L (39-117); Anion Gap 17 (12-20); Aspartate Amino Transferase 13 U/L (5-31); Bilirubin Total 0.3 mg/dL (0.0-1.0); Blood Urea Nitrogen 24 mg/dL (9-16); Carbon Dioxide 24 mmol/L (22-29); Chloride 97 mmol/L (96-108); Estimated Glomerular Filt Rate 32; Glucose Random 323 mg/dL (60-115); Sodium 134 mmol/L (135-145); Total Protein 7.5 g/dL (6.5-8.0)
[2023-02-12 13:27] LABS: Erythrocyte Sedimentation Rate 19 MM/HR (0-20)
[2023-02-17 15:24] LABS: Vitamin D 25-OH, D2 <4 ng/mL; Vitamin D 25-OH, D3 47 ng/mL; Vitamin D 25-OH, Total 47 ng/mL (30-100)
== END 2023-02-12 10:17 | disposition home or self-care (01) ==
LOC: HO.XRAY 10:16
PROVIDERS: PCP Internal Medicine; Visit Provider Internal Medicine Rheumatology
DX: M25.512 Pain in left shoulder (principal); M35.3 Polymyalgia rheumatica; Z79.52 Long term (current) use of systemic steroids; E11.9 Type 2 diabetes mellitus without complications
CPT/HCPCS: 36415; 73030; 80053; 82306; 85025; 85652; 86140

== ENCOUNTER 2023-02-12 10:16 | Outpatient (AMB) | payer MEDICARE, SELFPAY ==
--- NOTE | 2023-02-12 10:20 | MHC.OFFVIS ---
Intake Vital Signs 02/12/23 10:22 Height 5 ft 5 in Weight 128 lb 11.999 oz BMI 21.4 BP 136/62 Blood Pressure Location Lt brachial Position Sitting Pulse 78 Pulse Source Pulse Oximeter Temp 97.9 F Pulse Oximetry (%) 99 Oxygen Delivery Method Room Air Intake Visit Reasons: PMR Intake Note: New patient here presenting today for PMR. 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 c/o left outter thigh pain Tortilla Maker Required: No Accompanied by: Sister Allergies peanuts Allergy (Unknown, Uncoded 02/12/23 10:20) anaphylaxis HPI HPI Comments History of Present Illness Details The patient presents with her sister for evaluating what is thought to be PMR. The history is mostly through the sister since the patient has significant memory lapses. Apparently in late September and early October patient developed an illness that almost totally disabled her. She was feeling stiffness and pain in her shoulders and upper arms. This also involved the lateral hip and anterior thigh regions. She had trouble getting out of bed. She eventually did see her doctor who noted elevated sed rate and in November she was started on prednisone 20 mg daily. Within days she felt much better. She feels like she is back to normal at presentwith some slight left lateral hip pain that she has had before. She does not recall any headache, jaw claudication or visual disturbance. She does not really have a history in the past that she can recall of arthritic problems. Apparently around the time of her illness there was concern that her medications could be causing the problem. The metformin and her statin were discontinued. She does not recall any blood work since being on the prednisone. [facility] Medical History Anxiety Cognitive impairment, mild, so stated CKD (chronic kidney disease) stage 3, GFR 30-59 ml/min DM type 2 (diabetes mellitus, type 2) Hyperlipidemia HTN (hypertension) Squamous cell carcinoma of right lower leg Diabetes mellitus Skin growth Surgical History History of squamous cell carcinoma excision (08/13/18) History of excision of mass (02/20/15) History of hand surgery History of tonsillectomy and adenoidectomy History of excision of lesion (05/30/09) History of excision of lesion (12/17/18) Status post cataract surgery Family History (Updated 02/12/23 @ 10:31 by CARLOS Coronado) Mother No problems noted. Father No problems noted. Daughter History of breast cancer Paternal Grandmother Breast cancer Social History (Updated 02/12/23 @ 10:32 by CARLOS Coronado) Household Members: Family and None Housing: House Alcohol intake: current Alcohol intake frequency: a few times a week Patient Tobacco Use Status: Former Tobacco user e-Cigarette/Vaping Use: Never Used Current occupational status: retired Cognitive needs: No Hearing needs: No Vision needs: Yes Female Reproductive History Menstrual Total pregnancies: 1 Review of Systems Const Details: Negative for appetite change, weight change, fever, chills, malaise and fatigue Eyes Details: Negative for vision change, dry eyes,headaches and dizziness ENT Details: Negative for hearing change, tinnitus, oral ulcer, nose bleeds and oral dryness. Card Details: Negative chest pain, edema and syncope Resp Details: There is a distant history of asthma but recently negative for SOB, cough and wheezing GI Details: Negative indigestion/heartburn, nausea, abdominal pain, bowel changes, diarrhea, constipation and bloody stool. Details: Negative for dysuria, hematuria, nocturia, decreased force/flow and genital discharge Skin/Breast Details: Over the years she has had some itchy outbreaks of skin thought to be eczema. Presently negative for itching, rash, hives, Raynaud's symptoms, sun sensitivity, and skin cancer Neuro Details: Recently some cognitive impairment noted. She was put on Aricept by Neurology. Negative for epilepsy, palsy, stroke, changes in speech, tingling and weakness Psych Details: Anxiety helped with the addition of some citalopram. negative for, depression and stress Endo Details: Negative for polyuria and polydypsia Ez/Lymph Details: Negative for excessive bruising or bleeding. Physical Exam Vital Signs: Last Vital Signs Temp 97.9 F 02/12/23 10:22 Pulse 78 02/12/23 10:22 BP 136/62 02/12/23 10:22 Pulse Ox 99 02/12/23 10:22 Oxygen Delivery Method Room Air 02/12/23 10:22 BMI result Body Mass Index 21.4 APPEARANCE: Patient in no acute distress EYES no redness, pupils equal and reactive to light, eyelids normal. no temporal artery tenderness, redness or swelling. EARS: External ear normal, canal clear and tympanic membrane normal. NOSE/SINUS: Airflow through both nares, no nasal discharge, no bleeding THROAT: Oral mucosa moist, no ulcerations NECK: No thyromegaly or masses, no adenopathy, trachea midline. HEART: Regulrar rhythm, S1-S2 heard, no murmurs, rubs or gallops. LUNG: Clear to percussion and auscultation ABD: Normal bowel sounds, no organomegaly, masses or tenderness. EXTREMITIES: No edema, no calf tenderness, normal peripheral pulses. NEURO: Oriented and alert x3. No focal weakness. Reflexes symmetric. Gait normal. SKIN: No inflammatory lesions. Multiple skin lesions with probably some actinic damage. No obvious malignancies. No objective signs of Raynaud's phenomenon. JOINT EXAM:?? Cervical Spine:.? Full range of motion without pain; no tenderness. Thoracic Spine:.? No scoliosis.? No tenderness on palpation. Lumbar Spine:.? Alignment normal.? Full range of motion with slight pain at the extremes of flexion. No tenderness. Chest Wall:.? No tenderness, swelling, increased warmth or erythema. Hands:.? Normal pain-free range of motion without tenderness, soft tissue swelling, increased warmth or erythema. There is some slight PIP bony enlargement but those joints are not tender. There is no thenar atrophy, triggering or sensory loss. Wrists:.? Normal pain-free range of motion without tenderness, swelling, increased warmth or erythema. Elbows:. Normal pain-free range of motion without tenderness, swelling, increased warmth or erythema. Shoulders:??Left: There is mild pain with abduction at 75 degrees but motion is limited to about 90 degrees of abduction. She can only manage about 10 or 15 degrees of internal or external rotation. There is minimal anterior tenderness with questionable abductor weakness with no adenopathy. Right: Full range of motion without pain. No tenderness, weakness, swelling, increased warmth or erythema. Hips:? Full range of motion without pain. Hip bursa:? No tenderness. Knees:??Normal pain-free range of motion without tenderness, swelling, increased warmth or erythema.? There is no effusion or crepitation Ankles:? Normal pain-free range of motion without tenderness, swelling, increased warmth or erythema. Feet: Normal pain-free range of motion with some mild 1st MTP bony enlargement, there is some hallux valgus deformity, more prominent on the left. The left 2nd toe over rides the 1st toe. There are however no areas of tenderness, soft tissue swelling, increased warmth or erythema. The skin envelope is intact. No sensory loss. Tender points:.? No tenderness to digital palpation at the occiput, trapezius, second rib, lateral epicondyle, knees, greater trochanter and gluteal area bilaterally. ? Results Reviewed Results Reviewed: Laboratory Tests 11/04/22 11/04/22 11/11/22 14:28 14:28 12:07 WBC 9.0 Hgb 11.4 L Hct 33.1 L ESR 45 H Creatinine 1.16 Ionized Calcium Laboratory Tests 11/04/22 14:28 Total Creatine Kinase 19 L 11/19/22 12/03/22 11:25 13:06 WBC Hgb Hct ESR 75 H Creatinine Ionized Calcium 5.2 Assessment & Plan Assessment & Plan (1) DM type 2 (diabetes mellitus, type 2): Code(s): E11.9 - Type 2 diabetes mellitus without complications (2) Shoulder pain, left: Code(s): M25.512 - Pain in left shoulder (3) Long-term corticosteroid use: Code(s): Z79.52 - long term care social worker (current) use of systemic steroids (4) PMR (polymyalgia rheumatica): Code(s): M35.3 - Polymyalgia rheumatica Plan The presentation, response to prednisone, and lab work were all consistent with the onset of polymyalgia rheumatica this summer. She has responded appropriately to prednisone. She never had any signs or symptoms to suggest giant cell arteritis. Pulses are symmetric indicating no evidence of large vessel disease at present. There is some mild changes of osteoarthritis in the fingers and in the MTP joints but these are not symptomatic presently. The left shoulder has limited motion with not too much discomfort. I suspect she has old rotator cuff damage there. I will get an x-ray of that shoulder. At present the prednisone dose probably can be reduced so we will reduce it to 15 mg daily, using the 5 mg tablets. She will likely be on the prednisone for at least another 6 months and possibly longer. We went over potential side effects of prednisone use including weight gain, worsening diabetes, cataracts, skin fragility and osteoporosis. We will check a baseline bone density test. Also I will check lab work looking in the glucose, LFTs, repeat acute phase reactants and CBC. She will likely need to go back on medicines for her diabetes and lipids in the future. I will get back to her with the results of her studies. We will see her back in about 5 weeks. Orders: Orders Complete Blood Count Auto Diff Today E11.9 - Type 2 diabetes mellitus without complications, M35.3 - Polymyalgia rheumatica XR DEXA axial skeleton Today Z78.0 - Asymptomatic menopausal state, Z79.52 - residential (current) use of systemic steroids Erythrocyte Sedimentation Rate Today E11.9 - Type 2 diabetes mellitus without complications, M35.3 - Polymyalgia rheumatica Comprehensive Met. Panel Today E11.9 - Type 2 diabetes mellitus without complications, M35.3 - Polymyalgia rheumatica C Reactive Protein Today E11.9 - Type 2 diabetes mellitus without complications, M35.3 - Polymyalgia rheumatica Vitamin D 25-OH (D2 and D3) Today E11.9 - Type 2 diabetes mellitus without complications, M35.3 - Polymyalgia rheumatica XR shoulder LT min 2V Today M25.512 - Pain in left shoulder Medications: New prednisone 15 mg (3 x 5 mg) PO DAILY 90 tabs 2RF M35.3 - Polymyalgia rheumatica Discontinued prednisone Discontinued Reason: Doctor's Order 20 mg PO DAILY 30 tabs 0RF Coding Level of Care Code Tele New Pt Level 3 (35671) Diagnoses DM type 2 (diabetes mellitus, type 2) E11.9 Shoulder pain, left M25.512 Long-term corticosteroid use Z79.52 PMR (polymyalgia rheumatica) M35.3
[2023-02-12 10:22] VITALS: BP 136/62; PULSE 78; TEMP 36.6; O2SAT 99; BMI 21.4
== END 2023-02-12 11:10 | disposition home or self-care (01) ==
PROVIDERS: PCP Internal Medicine; Visit Provider Internal Medicine Rheumatology
DX: M35.3 Polymyalgia rheumatica (principal); M25.512 Pain in left shoulder; Z79.52 Long term (current) use of systemic steroids; E11.9 Type 2 diabetes mellitus without complications
CPT/HCPCS: 99204

== ENCOUNTER 2023-02-27 10:27 | Outpatient (REF) | payer MEDICARE, SELFPAY ==
--- NOTE | ~2023-02-27 | MM_ITS ---
EXAMINATION: BONE DENSITOMETRY CLINICAL INDICATION: Asymptomatic menopausal state. COMPARISON: This is the patient's baseline examination. TECHNIQUE: Using a i.Meter DXA System (software version: 13.1) manufactured by [employer], dual-energy x-ray absorptiometry was performed of the lumbar spine and left hip. The images are of good technical quality. Summary results are attached. FINDINGS: LEFT FEMUR, NECK: BMD 0.786 g/cm2, Z-score 0.6, T-score -1.8, osteopenia. LEFT FEMUR, TOTAL: BMD 0.744 g/cm2, Z-score 0.2, T-score -2.1, osteopenia. AP SPINE L1-L2 (excluding L3 and L4): The data of L1-L4 has been changed to exclude the L3 and L4 vertebral bodies, because degenerative sclerosis at these levels may cause overestimation of lumbar spine density. BMD 1.052 g/cm2, Z-score 1.2, T-score -0.9, normal. IDENTIFIED RISK FACTORS: Early menopause, secondary osteoporosis. HISTORY OF FRACTURE: None listed. MEDICATIONS: Multivitamin. MM/XR DEXA axial skeleton IMPRESSION: 1. DIAGNOSIS: Osteopenia based on the lowest T-score value of -2.1 in the total femur applying World Health Organization criteria. 2. 10-YEAR FRACTURE RISK PREDICTION, FRAX: Major osteoporotic fracture (clinical spine, forearm, hip or shoulder) 13.1%. Hip fracture 3.9%. 3. Treatment Recommendations: NOF guidelines recommend consideration for treatment in postmenopausal women and men age 50 and older presenting with the following: -A hip or vertebral (clinical or morphometric) fracture. -T-score less than or equal to -2.5 at the femoral neck or spine after appropriate evaluation to exclude secondary causes. -Low bone mass at the hip or spine and a 10-year fracture probability by FRAX of greater than or equal to 3% for hip fracture or greater than or equal to 20% for major osteoporotic fracture based on the [place] adapted WHO algorithm. 4. Other Recommendations: All treatment decisions require clinical judgment and consideration of individual patient factors, including patient preferences, comorbidities, previous drug use, risk factors not captured in the FRAX model (e.g. frailty, falls, vitamin D deficiency, increased bone turnover, interval significant decline in bone density) and possible under or overestimation of fracture risk by FRAX. Additional medical evaluation for secondary cause of low bone mineral density may be appropriate. FUTURE SCAN RECOMMENDATION: People with diagnosed cases of osteoporosis or at high risk for fracture should have regular bone mineral density tests. For patients eligible for Medicare, routine testing is allowed once every 2 years. The testing frequency can be increased to one year for patients who have rapidly progressing disease, those who are receiving or discontinuing medical therapy to restore bone mass, or have additional risk factors.
== END 2023-02-27 10:28 | disposition home or self-care (01) ==
LOC: HO.MAMMO 10:27
PROVIDERS: Visit Provider Internal Medicine Rheumatology
DX: Z13.820 Encounter for screening for osteoporosis (principal); Z78.0 Asymptomatic menopausal state; Z79.52 Long term (current) use of systemic steroids
CPT/HCPCS: 77080

== ENCOUNTER 2023-03-02 08:00 | Outpatient (REF) | payer MEDICARE, SELFPAY ==
[2023-03-02 11:25] LABS: MANUAL DIFF FLAG NO
[2023-03-02 11:38] LABS: Basophils Percent Auto 0.8 % (0-2); Eosinophils Absolute Auto 0.1 X10*3/uL (0.0-0.4); Eosinophils Percent Auto 1.5 % (0-4); Hematocrit 32.1 % (37.0-47.0); Hemoglobin 10.4 g/dl (12.0-16.0); Imm Gran Abs Auto 0.01 X10*3/uL (0.00-0.03); Imm Gran Pct Auto 0.2 % (0.0-0.4); Lymphocytes Absolute Auto 1.8 X10*3/uL (1.2-4.9); Lymphocytes Percent Auto 33.8 % (20-40); Mean Corpuscular HGB Conc 32.4 g/dl (31.0-35.0); Mean Corpuscular Hemoglobin 30.3 pg (27.0-33.0); Mean Corpuscular Volume 93.6 fL (80.0-98.0); Mean Platelet Volume 12.1 fL (9.4-12.3); Monocytes Absolute Auto 0.4 X10*3/uL (0.1-1.2); Neutrophils Absolute Auto 2.9 x10*3/uL (2.0-8.3); Neutrophils Percent Auto 55.7 % (45-73); Platelet Count 180 X10*3/uL (160-400); Red Blood Count 3.43 X10*6/uL (4.20-5.50); Red Cell Distribution Width 13.1 % (11.0-16.0); White Blood Count 5.3 X10*3/uL (4.8-10.8)
[2023-03-02 11:46] LABS: Estimated Average Glucose 209 mg/dL; Hemoglobin A1c % 8.9 % (<6.0)
[2023-03-02 12:10] LABS: Alanine Aminotransferase 11 U/L (0-31); Alkaline Phosphatase 65 U/L (39-117); Anion Gap 17 (12-20); Aspartate Amino Transferase 12 U/L (5-31); Bilirubin Total 0.5 mg/dL (0.0-1.0); Blood Urea Nitrogen 25 mg/dL (9-16); C Reactive Protein 0.95 mg/dL (< or = 0.50); Calcium 9.7 mg/dL (8.4-10.2); Carbon Dioxide 23 mmol/L (22-29); Chloride 101 mmol/L (96-108); Cholesterol 199 mg/dL (<200); Estimated Glomerular Filt Rate 43; Glucose Fasting 222 mg/dL (60-99); HDL Cholesterol 73 mg/dL (>40); LDL Cholesterol Calculated 102 mg/dL (<100); Potassium 4.3 mmol/L (3.3-5.1); Sodium 137 mmol/L (135-145); Total Protein 6.8 g/dL (6.5-8.0); Triglycerides 122 mg/dL (<150)
[2023-03-02 12:48] LABS: Creatinine Urine 95.87 mg/dL
[2023-03-02 16:29] LABS: Erythrocyte Sedimentation Rate 16 MM/HR (0-20)
== END 2023-03-02 08:01 | disposition home or self-care (01) ==
LOC: HO.HMGCLDS 08:00
PROVIDERS: Internal Medicine Rheumatology; PCP Internal Medicine; Visit Provider Internal Medicine
DX: M35.3 Polymyalgia rheumatica (principal); E11.22 Type 2 diabetes mellitus with diabetic chronic kidney disease; I12.9 Hypertensive chronic kidney disease with stage 1 through stage 4 chronic kidney disease, or unspecified chronic kidney disease; N18.30 Chronic kidney disease, stage 3 unspecified; E78.5 Hyperlipidemia, unspecified
CPT/HCPCS: 36415; 80053; 80061; 82043; 82570; 83036; 85025; 85652; 86140

== ENCOUNTER 2023-03-05 12:24 | Outpatient (AMB) | payer MEDICARE, SELFPAY ==
[2023-03-05 12:36] VITALS: BP 120/66; PULSE 78; O2SAT 97; BMI 21.3
--- NOTE | 2023-03-05 12:36 | AM.OFFVISMDC ---
Intake Vital Signs 03/05/23 12:36 Height 5 ft 5 in Weight 128 lb BMI 21.3 BP 120/66 Blood Pressure Location Rt brachial Position Sitting Pulse 78 Pulse Source Pulse Oximeter Pulse Oximetry (%) 97 Oxygen Delivery Method Room Air Intake Visit Reasons: AWV Intake Note: Pt is here today for AWV. Allergies peanuts Allergy (Unknown, Uncoded 03/05/23 12:39) anaphylaxis Medication List - Last Reconciled 03/05/23 by Elana Rubio MD amlodipine 2.5 mg PO DAILY citalopram 20 mg PO DAILY donepezil 1/2 tab qd for 4 weeks then 1 tab qd orally daily; fluorouracil 5% appl topical hydrocortisone 2.5% appl topical ibuprofen 400 mg PO Q8H PRN imiquimod 5% topical lisinopril 5 mg PO DAILY metformin ER 500 mg PO DAILY prednisone 15 mg (3 x 5 mg) PO DAILY simvastatin 10 mg PO BEDTIME HPI AWV HPI Details Pt presents for annual. Initiated the conversation about Advanced Directives. Advanced Directives help? patients prepare for current and future decisions about their medical treatment? and place of care. Discussed with patient that it is a process where a patients? current condition and prognosis are reviewed, their wishes for information? regarding their illness are elicited, and likely medical dilemmas are presented? and options discussed. The form can be amended as needed, reviewed yearly and? make changes as needed IPPE/AWV ? year old presents? for her ? Annual? Wellness Visit, initial visit.? Medical / Social History Reviewed? Past Medical History ?Yes? . ? [place]? of Care / Care Team list updated ?Yes . ? Surgical/Hospitalization? History ?Yes . ? Current Medications? (including OTC and supplements) ?Yes . ? Family History ?Yes? . ? Tobacco? Control form ?Yes . ? AUDIT-C (Alcohol use) form? ?Yes . ? Illicit drug use in Social? History ?Yes . ? Current diagnosis of? depression? ?No ? Appropriate PHQ2/PHQ9? completed ?Yes . ? Data entered by ?[facility] [employer] and reviewed by provider ? Fall Risk ? Fall? History? Have you had any falls with? injury in the past year? ?No . ? Have you had two or more? falls in the past year? ?No . ? Fall Risk Assessment: ?No? falls in the past year . ? HRA filled out by? the patient, reviewed by Provider and scanned. ? IPPE/AWV ? Balance? [place]? ?Yes . ? Tandem? walk ?Yes . ? Walk and? Turn ?Yes . ? Rise from? sit to stand ?Yes . ?Vision? Corrective? lens ?Yes ? Vision? screen ? Up-to-date, has an appointment [] for vision? screening and glaucoma screening ?Hearing? Whisper? test ?pass .? Initiated the conversation about Advanced Directives. Advanced Directives help? patients prepare for current and future decisions about their medical treatment? and place of care. Discussed with patient that it is a process where a patients? current condition and prognosis are reviewed, their wishes for information? regarding their illness are elicited, and likely medical dilemmas are presented? and options discussed. The form can be amended as needed, reviewed yearly and? make changes as needed Written? Plan?Completed. See Patient? Documents. [facility] Medical History Anxiety Cognitive impairment, mild, so stated CKD (chronic kidney disease) stage 3, GFR 30-59 ml/min DM type 2 (diabetes mellitus, type 2) Hyperlipidemia HTN (hypertension) Squamous cell carcinoma of right lower leg Diabetes mellitus Skin growth Surgical History History of squamous cell carcinoma excision (08/13/18) History of excision of mass (02/20/15) History of hand surgery History of tonsillectomy and adenoidectomy History of excision of lesion (05/30/09) History of excision of lesion (05/03/18) Status post cataract surgery Family History (Updated 02/12/23 @ 10:31 by CARLOS Coronado) Mother No problems noted. Father No problems noted. Daughter History of breast cancer Paternal Grandmother Breast cancer Social History (Updated 02/12/23 @ 10:32 by CARLOS Coronado) Household Members: Family and None Housing: House Alcohol intake: current Alcohol intake frequency: a few times a week Patient Tobacco Use Status: Former Tobacco user e-Cigarette/Vaping Use: Never Used Current occupational status: retired Cognitive needs: No Hearing needs: No Vision needs: Yes Questionnaire Medicare Wellness Checkup What is your age?: 81 or older What gender do you identify with?: female During the past 4 weeks, how much have you been bothered by emotional problems such as feeling anxious, depressed, irritable, sad or downhearted, and blue?: not at all During the past 4 weeks, has your physical & emotional health limited your social activities with family, friends, neighbors, or groups?: not at all During the past 4 weeks, how much bodily pain have you generally had?: very mild pain During the past 4 weeks, was someone available to help you if you needed & wanted help?: yes, as much as I wanted During the past 4 weeks, what was the hardest physical activity you could do for at least 2 minutes?: heavy Can you get to places out of walking distance without help? (For eg., can you travel alone on buses, taxis or drive your car?): Yes Can you go shopping for groceries or clothes without someone's help?: Yes Can you prepare your own meals?: Yes Can you do your housework without help?: Yes Because of any health problems, do you need the help of another person with your personal care needs such as eating, bathing, dressing or getting around the house?: No Can you handle your own money without help?: Yes During the past 4 weeks, how would you rate your health in general?: very good During the past 4 weeks how have things been going for you?: very well; could hardly better Are you having difficulties driving your car?: no Do you always fasten your seat belt when you are in a car?: yes, usually During past 4 weeks, have you been bothered by the following: never: Falling or dizzy when standing up, Sexual problems?, Trouble eating well?, Teeth or denture problems?, Problems using the telephone? and Tiredness or fatigue? Have you fallen 2 or more times in the past year?: No Are you afraid of falling?: No Are you a smoker?: no During the past 4 weeks, how many drinks of wine, beer, or other alcoholic beverages did you have?: 1 drink or less per week Do you exercise for about 20 minutes 3 or more times a week?: yes, most of the time Have you been given information to help with the following?: no: Hazards in your house that might hurt you? and no: Keeping track of your medications? How often do you have trouble taking medicines the way you have been told to take them?: I always take medicine as prescribed How confident are you that you can control & manage most of your health problems?: very confident What is your race?: White Mini Mental State Exam (MMSE) Orientation What is the (year) (season) (date) (day) (month)?: year, season and month Where are we (state) (county) (town or city) (hospital) (floor)?: state, county and town or city Registration Name of 3 unrelated objects clearly and slowly, then ask patient to repeat all 3 of them. (1st repeat determines score. Make sure they can repeat all three): object 1 and object 2 Recall Ask patient to repeat the 3 items from question #3.: object 1 Language Show patient a wristwatch & ask what it is. Repeat for pencil.: watch and pencil Ask the patient to repeat the phrase 'No ifs, ands, or buts' after you.: incorrect Print the sentence 'CLOSE YOUR EYES' on a piece. If patient actually closes eyes then score.: followed written direction Give patient a blank piece of paper & ask to write a sentence. Score if it contains a noun & verb.: sentence contains subject and verb Score Score: 13 Activity of Daily Living Bathing - sponge bath, tub bath or shower: receives no assistance (gets in/out by self, if usual bathing means Dressing - getting clothes from closets & drawers, including inner/outer garments & fasteners.: gets clothes & gets completely dressed without help Toileting - going to the 'toilet room' for urine/bowel elimination & cleaning self/arranging clothes: goes to toilet room, cleans self, arranges clothes without help Transfer: moves in & out of bed and chair without help (may use support object) Continence: controls urination/bowel movements completely by self Feeding: feeds self without help Total Score: 0 Information obtained from: patient Using telephone: independent Traveling: independent Shopping: independent Preparing meals: independent Housework: independent Taking medicine: independent Managing money: independent PHQ-9 Over the last 2 weeks, how often have you been bothered by any of the following problems? 1. Little interest or pleasure in doing things: not at all 2. Feeling down, depressed, or hopeless: not at all 3. Trouble falling or staying asleep, or sleeping too much: not at all 4. Feeling tired or having little energy: not at all 5. Poor appetite or overeating: not at all 6. Feeling bad about yourself - or that you are a failure or have let yourself or your family down: not at all 7. Trouble concentrating on things, such as reading the newspaper or watching television: not at all 8. Moving or speaking so slowly that other people could have noticed. Or the opposite - being so fidgety or restless that you have been moving around a lot more than usual: not at all 9. Thoughts that you would be better off or of hurting yourself in some way: not at all Total score: 0 Depression Screening Interpretation: Negative Depression Screening Done: Yes Source: Developed by Drs. Trey Dolan, Tova Pereira, Cholo Damon and colleagues, with an educational alvaro from [employer]. Review of Systems Const All systems reviewed & are unremarkable except as noted in HPI and below Reports no additional complaints Eyes Reports no additional complaints ENT Reports no additional complaints Card Reports no additional complaints Resp Reports no additional complaints Reports no additional complaints Physical Exam Vital Signs: Last Vital Signs Pulse 78 03/05/23 12:36 BP 120/66 03/05/23 12:36 Pulse Ox 97 03/05/23 12:36 Oxygen Delivery Method Room Air 03/05/23 12:36 BMI result Body Mass Index 21.3 Const General: no acute distress HEENT Head: Yes normal to inspection Neck Neck: Yes no lymphadenopathy and Yes supple Resp Effort & Inspection: normal respiratory effort Auscultation: clear to auscultation bilaterally Cardio Rhythm: regular rhythm Heart sounds: S1 normal heart sound present and S2 normal heart sound present GI Inspection: Yes normal to inspection Palpation (GI): Soft to palpation Percussion: Yes normal to percussion Auscultation: normal bowel sounds Extrem General: Yes no clubbing, cyanosis or edema Assessment & Plan Assessment & Plan (1) PMR (polymyalgia rheumatica): Comment: on Prednisone since 12/07, f/u rheumatology Code(s): M35.3 - Polymyalgia rheumatica Plan: f/u rheumatology (2) Hyperlipidemia: Code(s): E78.5 - Hyperlipidemia, unspecified Plan: cont Simvastatin (3) DM type 2 (diabetes mellitus, type 2): Code(s): E11.9 - Type 2 diabetes mellitus without complications Plan: increased A1C to 8.9 % after patient started prednisone. She will continue metformin, ADA diet discussed with the patient follow-up in 3 months with fasting labs before including A1c (4) CKD (chronic kidney disease) stage 3, GFR 30-59 ml/min: Code(s): N18.30 - Chronic kidney disease, stage 3 unspecified Plan: Monitor renal function (5) HTN (hypertension): Code(s): I10 - Essential (primary) hypertension Plan: Continue current medications (6) Anxiety: Code(s): F41.9 - Anxiety disorder, unspecified Plan: cont Citalopram (7) Annual physical exam: Code(s): Z00.00 - Encounter for general adult medical examination without abnormal findings Plan: Well-balanced diet regular physical activity discussed with the patient .follow-up in 3 months with a fasting labs before Orders: Orders Hemoglobin A1c 3 Months E11.9 - Type 2 diabetes mellitus without complications, M35.3 - Polymyalgia rheumatica, N18.30 - Chronic kidney disease, stage 3 unspecified, Z00.00 - Encounter for general adult medical examination without abnormal findings Complete Blood Count Auto Diff 3 Months E11.9 - Type 2 diabetes mellitus without complications, M35.3 - Polymyalgia rheumatica, N18.30 - Chronic kidney disease, stage 3 unspecified, Z00.00 - Encounter for general adult medical examination without abnormal findings Comprehensive [place]. Panel Fast 3 Months E11.9 - Type 2 diabetes mellitus without complications, M35.3 - Polymyalgia rheumatica, N18.30 - Chronic kidney disease, stage 3 unspecified, Z00.00 - Encounter for general adult medical examination without abnormal findings Lipid Panel 3 Months E11.9 - Type 2 diabetes mellitus without complications, M35.3 - Polymyalgia rheumatica, N18.30 - Chronic kidney disease, stage 3 unspecified, Z00.00 - Encounter for general adult medical examination without abnormal findings Medications: New lisinopril 5 mg PO DAILY 90 tabs 0RF Quality Reporting (2019) Depression/Bipolar (159/160/161/177) PHQ-9: Total score: 0 Coding Level of Care Code Medicare Subsequent (G0439) Diagnoses PMR (polymyalgia rheumatica) M35.3 Hyperlipidemia E78.5 DM type 2 (diabetes mellitus, type 2) E11.9 CKD (chronic kidney disease) stage 3, GFR 30-59 ml/min N18.30 HTN (hypertension) I10 Anxiety F41.9 Annual physical exam Z00.00 CPT Codes Advance Care Planning - Time spent: 1-15 minutes, not on file ([id number]) Advance Care Planning Advance Care Planning discussion: Exists, not on file Forms completed: Health Care Proxy Time spent: 1-15 minutes, not on file
== END 2023-03-05 13:39 | disposition home or self-care (01) ==
PROVIDERS: PCP Internal Medicine; Visit Provider Internal Medicine
DX: Z00.00 Encounter for general adult medical examination without abnormal findings (principal); M35.3 Polymyalgia rheumatica; E11.22 Type 2 diabetes mellitus with diabetic chronic kidney disease; N18.30 Chronic kidney disease, stage 3 unspecified; E78.5 Hyperlipidemia, unspecified; I12.9 Hypertensive chronic kidney disease with stage 1 through stage 4 chronic kidney disease, or unspecified chronic kidney disease; F41.9 Anxiety disorder, unspecified
CPT/HCPCS: 1124F; G0439

== ENCOUNTER 2023-03-10 10:54 | Outpatient (AMB) | payer MEDICARE, SELFPAY ==
--- NOTE | 2023-03-10 10:56 | MHC.PC.OV ---
Vital Signs 03/10/23 10:57 Height 5 ft 5 in Weight 128 lb BMI 21.3 BP 118/60 Blood Pressure Location Rt brachial Position Sitting Pulse 83 Pulse Source Pulse Oximeter Pulse Oximetry (%) 98 Oxygen Delivery Method Room Air Intake Visit Reasons: a grown bump on right leg Intake Note: Pt is here today for a sick visit. Pt c/o growth/lump on the back of her R leg that is bleeding. Allergies peanuts Allergy (Unknown, Uncoded 03/10/23 10:59) anaphylaxis Tobacco use date assessed: 03/10/23 HPI a grown bump on right leg HPI Details Patient noticed a recurrent skin growth on the right calf 1 week ago. She had a squamous cell CA lesion removed from this area by Dr. Reed in 2020. Hypertension is controlled on current medications. Patient has been taking prednisone for PMR and has a follow-up with golf ball cover treater in 2 months. [facility] Medical History (Updated 03/10/23 @ 12:49 by Elana Rubio MD) Anxiety Cognitive impairment, mild, so stated CKD (chronic kidney disease) stage 3, GFR 30-59 ml/min DM type 2 (diabetes mellitus, type 2) Hyperlipidemia HTN (hypertension) Squamous cell carcinoma of right lower leg Diabetes mellitus Skin growth Surgical History History of squamous cell carcinoma excision (08/13/18) History of excision of mass (02/20/15) History of hand surgery History of tonsillectomy and adenoidectomy History of excision of lesion (05/30/09) History of excision of lesion (05/03/18) Status post cataract surgery Family History (Updated 02/12/23 @ 10:31 by CARLOS Coronado) Mother No problems noted. Father No problems noted. Daughter History of breast cancer Paternal Grandmother Breast cancer Social History (Updated 02/12/23 @ 10:32 by CARLOS Coronado) Household Members: Family and None Housing: House Alcohol intake: current Alcohol intake frequency: a few times a week Patient Tobacco Use Status: Former Tobacco user e-Cigarette/Vaping Use: Never Used Current occupational status: retired Cognitive needs: No Hearing needs: No Vision needs: Yes Questionnaire Thrive Questionnaire Date Thrive assessed: 06/23/22 ANAYELI-7 AMB Questionnaire ANAYELI-7 Date ANAYELI - 7 assessed: 06/23/22 Source: Developed by Drs. Trey Dolan, Tova Pereira, Cholo Damon and colleagues, with an educational alvaro from [email or web address]. Review of Systems Const All systems reviewed & are unremarkable except as noted in HPI and below Reports no additional complaints Eyes Reports no additional complaints ENT Reports no additional complaints Card Reports no additional complaints Resp Reports no additional complaints Physical exam (Primary Care) Vital Signs: Last Vital Signs Pulse 83 03/10/23 10:57 BP 118/60 03/10/23 10:57 Pulse Ox 98 03/10/23 10:57 Oxygen Delivery Method Room Air 03/10/23 10:57 BMI result Body Mass Index 21.3 Tobacco/Smoking Status: Tobacco use Status Tobacco use date assessed 03/10/23 03/10/23 11:00 Patient Tobacco Use Status Former Tobacco user 03/10/23 11:00 e-Cigarette/Vaping Use Never Used 03/10/23 11:00 Thrive Assessment: Date of Thrive Assessment Date Thrive assessed 06/23/22 03/10/23 11:00 Const General: no acute distress HENMT Face and sinus: Yes normal facial exam Neck Neck: Yes supple Resp Effort & Inspection: normal respiratory effort Auscultation: clear to auscultation bilaterally Cardio Rhythm: regular rhythm Heart sounds: S1 normal heart sound present and S2 normal heart sound present Skin Other: 2 cm raised with scaly surface and ulceration lesion on the right posterior calf Assessment and Plan Assessment & Plan (1) Squamous cell carcinoma of right lower leg: Comment: Removed by Dr. Reed 2020 Code(s): C44.722 - Squamous cell carcinoma of skin of right lower limb, including hip Plan: For recurrent squamous cell CA patient will be referred to surgeon as soon as possible (2) PMR (polymyalgia rheumatica): Comment: on Prednisone since 12/07, f/u rheumatology Code(s): M35.3 - Polymyalgia rheumatica Plan: Continue prednisone follow-up with Rheumatology (3) HTN (hypertension): Code(s): I10 - Essential (primary) hypertension Plan: Continue medications (4) DM type 2 (diabetes mellitus, type 2): Code(s): E11.9 - Type 2 diabetes mellitus without complications Plan: Continue metformin ADA diet and glucose monitoring discussed with the patient Coding Level of Care Code Est Pt Level 4 (80175) Diagnoses Squamous cell carcinoma of right lower leg C44.722 PMR (polymyalgia rheumatica) M35.3 HTN (hypertension) I10 DM type 2 (diabetes mellitus, type 2) E11.9
[2023-03-10 10:57] VITALS: BP 118/60; PULSE 83; O2SAT 98; BMI 21.3
== END 2023-03-10 12:13 | disposition home or self-care (01) ==
PROVIDERS: PCP Internal Medicine; Visit Provider Internal Medicine
DX: C44.722 Squamous cell carcinoma of skin of right lower limb, including hip (principal); M35.3 Polymyalgia rheumatica; I10 Essential (primary) hypertension; E11.9 Type 2 diabetes mellitus without complications
CPT/HCPCS: 99214

== ENCOUNTER 2023-03-18 10:51 | Outpatient (AMB) | payer MEDICARE, SELFPAY ==
--- NOTE | 2023-03-18 11:02 | A.OFFVIS_ITS ---
Intake Vital Signs 03/18/23 11:03 Height 5 ft 5 in Weight 128 lb 11.999 oz BMI 21.4 BP 124/82 Blood Pressure Location Rt brachial Position Sitting Pulse 81 Pulse Source Pulse Oximeter Temp 97.2 F Temp Source Skin Pulse Oximetry (%) 98 Oxygen Delivery Method Room Air Intake Visit Reasons: PMR Intake Note: Patient presents today to follow up on PMR. 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 She remains on prednisone at 15 mg daily. They report in general she feels quite comfortable with exception of the left shoulder. She has difficulty lifting her arm overhead in order to dry her hair. This has been a longstanding problem. She does not recall any recent or distant injury to the shoulder. There has been no headache, jaw claudication or visual disturbance. [facility] Medical History (Updated 03/17/23 @ 20:25 by Richard Nice MD) Anxiety Cognitive impairment, mild, so stated CKD (chronic kidney disease) stage 3, GFR 30-59 ml/min DM type 2 (diabetes mellitus, type 2) Hyperlipidemia HTN (hypertension) Squamous cell carcinoma of right lower leg Diabetes mellitus Skin growth Surgical History History of squamous cell carcinoma excision (08/13/18) History of excision of mass (02/20/15) History of hand surgery History of tonsillectomy and adenoidectomy History of excision of lesion (05/30/09) History of excision of lesion (05/03/18) Status post cataract surgery Family History Mother No problems noted. Father No problems noted. Daughter History of breast cancer Paternal Grandmother Breast cancer Social History Household Members: Family and None Housing: House Alcohol intake: current Alcohol intake frequency: a few times a week Patient Tobacco Use Status: Former Tobacco user e-Cigarette/Vaping Use: Never Used Current occupational status: retired Cognitive needs: No Hearing needs: No Vision needs: Yes Review of Systems Const Details: Some improvement in energy level. Appetite remains diminished but her weight is stabilized. The sister says the patient needs better when the sister coaxed for her. Negative for weight change, fever, chills, malaise Eyes Details: Negative for vision change, dry eyes,headaches and dizziness ENT Details: Negative for hearing change, tinnitus, oral ulcer, nose bleeds and oral dryness. Card Details: Negative chest pain, edema and syncope Resp Details: Negative for SOB, cough and wheezing GI Details: Negative indigestion/heartburn, nausea, abdominal pain, bowel changes, diarrhea, constipation and bloody stool. Neuro Details: Memory problems remain. Negative for epilepsy, palsy, stroke, changes in speech, tingling and weakness Endo Details: Negative for polyuria and polydypsia Ez/Lymph Details: Negative for excessive bruising or bleeding. Physical Exam Vital Signs: Last Vital Signs Temp 97.2 F 03/18/23 11:03 Pulse 81 03/18/23 11:03 BP 124/82 03/18/23 11:03 Pulse Ox 98 03/18/23 11:03 Oxygen Delivery Method Room Air 03/18/23 11:03 BMI result Body Mass Index 21.4 APPEARANCE: Patient in no acute distress EYES no redness, pupils equal and reactive to light, eyelids normal. No temporal artery tenderness, redness or swelling. Cervical Spine:.? Full range of motion without pain; no tenderness. Thoracic Spine:.? No scoliosis.? No tenderness on palpation. Lumbar Spine:.? Alignment normal.? Full range of motion with slight pain at the extremes of flexion. No tenderness. Chest Wall:.? No tenderness, swelling, increased warmth or erythema. Hands:.? Normal pain-free range of motion without tenderness, soft tissue swelling, increased warmth or erythema. There is some slight PIP bony enlargement but those joints are not tender. There is no thenar atrophy, triggering or sensory loss. Wrists:.? Normal pain-free range of motion without tenderness, swelling, increased warmth or erythema. Elbows:. Normal pain-free range of motion without tenderness, swelling, increased warmth or erythema. Shoulders:??Left: There is mild pain with abduction at 75 degrees but motion is limited to about 90 degrees of abduction. She can only manage about 10 or 15 degrees of internal or external rotation. There is minimal anterior tenderness with questionable abductor weakness with no adenopathy. Right: Full range of motion without pain. No tenderness, weakness, swelling, increased warmth or erythema. Hips:? Full range of motion without pain. Hip bursa:? No tenderness. Knees:??Normal pain-free range of motion without tenderness, swelling, increased warmth or erythema.? There is no effusion or crepitation Ankles:? Normal pain-free range of motion without tenderness, swelling, increased warmth or erythema. Feet: Normal pain-free range of motion with some mild 1st MTP bony enlargement, there is some hallux valgus deformity, more prominent on the left. The left 2nd toe over rides the 1st toe. There are however no areas of tenderness, soft tissue swelling, increased warmth or erythema. The skin envelope is intact. No sensory loss. Results Reviewed Results Reviewed: Laboratory Tests 03/02/23 08:10 WBC 5.3 Hgb 10.4 L ESR 16 Creatinine 1.21 C-Reactive Protein 0.[address] [address] Laboratory Tests 02/12/23 11:30 Calcium 10.0 25-OH Vitamin D Total 47 XRay Report Signed Patient: Lili Pineda MR#: [id number] : 1940 Acct:[id number] Age/Sex: 82 / F ADM Date: 02/12/[address]: Richard Nice MD Ordering Physician: Richard Nice MD Date of Service: 02/12/23 Procedure(s): XR shoulder LT min 2V Accession Number(s): [id number] cc: Elana Rubio MD; Richard Nice MD~ EXAMINATION: XR SHOULDER, LEFT CLINICAL INFORMATION: Left shoulder pain. COMPARISON: None available. TECHNIQUE: AP external rotation, Grashey, scapular Y, and axillary views of the left shoulder. FINDINGS: Moderate acromioclavicular osteoarthritis with lateral downsloping and subacromial spurring. Mild superior subluxation of the humeral head, likely indicating underlying rotator cuff tendon tear. [id number] glenohumeral joint space narrowing with marginal osteophytes. No osseous erosion. No acute fracture. No abnormal soft tissue calcification. XR/XR shoulder LT min 2V IMPRESSION: Moderate acromioclavicular osteoarthritis with lateral downsloping and subacromial spurring. Mild superior subluxation of the humeral head, likely indicating underlying rotator cuff tendon tear. [id number] glenohumeral osteoarthritis. Dictated By: Jacob Paz MD Assessment & Plan Assessment & Plan (1) Osteopenia after menopause: Comment: T scores 02/2023: LS -0.9, Fem neck -1.8, femur -2.1. 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 The acute phase reactants have basically normalized. We will see if we can reduce the prednisone down to 10 mg weekly. If this results in return of pains or disability we could push the dose back a bit higher or split the dose. The family will have to call me if she has such trouble. She does have osteopenia noted on bone density study. She also has a relatively high FRAX score with a overall fracture risk of 13.1% and hip fracture risk of 3.9% over the next 10 years. Because of that I think she needs to be on a bisphosphonate. I have prescribed alendronate 70 mg once a week. I went over with them the regimen of taking the medication only with water, on an empty stomach and not lying down after taking the alendronate. I gave him some written information on alendronate to review. We discussed potential GERD symptoms as side effects. We will see her back in about 6 weeks with lab before that visit. Orders: Orders C Reactive Protein Today M35.3 - Polymyalgia rheumatica Erythrocyte Sedimentation Rate Today M35.3 - Polymyalgia rheumatica Medications: New alendronate 70 mg PO QWEEK 12 tabs 3RF M85.80 - Other specified disorders of bone density and structure, unspecified site, Z78.0 - Asymptomatic menopausal state Changed From prednisone 15 mg (3 x 5 mg) PO DAILY 90 tabs 2RF M35.3 - Polymyalgia rheumatica To prednisone 10 mg (2 x 5 mg) PO DAILY 60 tabs 2RF M35.3 - Polymyalgia rheumatica Coding Level of Care Code Est Pt Level 4 (04226) Diagnoses Osteopenia after menopause M85.80; Z78.0 Osteoarthritis of left glenohumeral joint M19.012 Long-term corticosteroid use Z79.52 PMR (polymyalgia rheumatica) M35.3
[2023-03-18 11:03] VITALS: BP 124/82; PULSE 81; TEMP 36.2; O2SAT 98; BMI 21.4
== END 2023-03-18 11:46 | disposition home or self-care (01) ==
LOC: HO.RHE 10:51
PROVIDERS: PCP Internal Medicine; Visit Provider Internal Medicine Rheumatology
DX: M85.80 Other specified disorders of bone density and structure, unspecified site (principal); Z78.0 Asymptomatic menopausal state; M19.012 Primary osteoarthritis, left shoulder; Z79.52 Long term (current) use of systemic steroids; M35.3 Polymyalgia rheumatica
CPT/HCPCS: 99214

== ENCOUNTER → 2023-03-18 10:51 | Outpatient (BNVA) | payer MEDICARE, SELFPAY | PROVIDERS: PCP Internal Medicine; Visit Provider Internal Medicine Rheumatology | DX: M35.3 Polymyalgia rheumatica (principal); M85.80 Other specified disorders of bone density and structure, unspecified site; M19.012 Primary osteoarthritis, left shoulder; Z79.52 Long term (current) use of systemic steroids | CPT/HCPCS: 99212 ==

== ENCOUNTER 2023-04-27 08:31 | Outpatient (REF) | payer MEDICARE, SELFPAY ==
[2023-04-27 12:21] LABS: Erythrocyte Sedimentation Rate 7 MM/HR (0-20)
[2023-04-27 12:23] LABS: C Reactive Protein < 0.10 mg/dL (< or = 0.50)
== END 2023-04-27 08:32 | disposition home or self-care (01) ==
LOC: HO.HMGCLDS 08:31
PROVIDERS: PCP Internal Medicine; Visit Provider Internal Medicine Rheumatology
DX: M35.3 Polymyalgia rheumatica (principal)
CPT/HCPCS: 36415; 85652; 86140

== ENCOUNTER 2023-04-30 10:58 | Outpatient (AMB) | payer MEDICARE, SELFPAY ==
[2023-04-30 11:09] VITALS: BP 142/70; PULSE 66; O2SAT 99; BMI 21.2
--- NOTE | 2023-04-30 11:09 | MHC.OFFVIS ---
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 Accompanied by: Sister Allergies peanuts Allergy (Unknown, Uncoded 03/18/23 11:03) anaphylaxis Medication List - Last Reconciled 04/30/23 by Richard Nice MD alendronate 70 mg PO QWEEK amlodipine 2.5 mg PO DAILY citalopram 20 mg PO DAILY donepezil 1/2 tab qd for 4 weeks then 1 tab qd orally daily; fluorouracil 5% appl topical hydrocortisone 2.5% appl topical ibuprofen 400 mg PO Q8H PRN imiquimod 5% topical lisinopril 10 mg PO DAILY metformin ER 500 mg PO DAILY prednisone 10 mg (2 x 5 mg) PO DAILY simvastatin 10 mg PO BEDTIME HPI HPI Comments History of Present Illness Details The patient returns for evaluation of her PMR. She is accompanied by her sister who gives most of the history. The patient and the sister indicate the patient does not really have any significant muscle, bone or joint pains. She is currently at 10 mg prednisone daily. There has been no headache, jaw claudication or visual disturbance. She does take alendronate 70 mg once a week for osteoporosis. The sister has discovered that the patient is unreliable taking the medications because of memory issues and the sister is now managing them on a daily basis. While they were on vacation the patient apparently took the alendronate 2 days in a row. This was when the sister decided to take over the medication administration for the patient. [facility] Medical History (Updated 03/17/23 @ 20:25 by Richard Nice MD) Anxiety Cognitive impairment, mild, so stated CKD (chronic kidney disease) stage 3, GFR 30-59 ml/min DM type 2 (diabetes mellitus, type 2) Hyperlipidemia HTN (hypertension) Squamous cell carcinoma of right lower leg Diabetes mellitus Skin growth Surgical History History of squamous cell carcinoma excision (08/13/18) History of excision of mass (02/20/15) History of hand surgery History of tonsillectomy and adenoidectomy History of excision of lesion (05/30/09) History of excision of lesion (05/03/18) Status post cataract surgery Family History Mother No problems noted. Father No problems noted. Daughter History of breast cancer Paternal Grandmother Breast cancer Social History Household Members: Family and None Housing: House Alcohol intake: current Alcohol intake frequency: a few times a week Patient Tobacco Use Status: Former Tobacco user e-Cigarette/Vaping Use: Never Used Current occupational status: retired Cognitive needs: No Hearing needs: No Vision needs: Yes Review of Systems Const Details: Negative for appetite change, weight change, fever, chills, malaise and fatigue Eyes Details: Negative for vision change, dry eyes,headaches and dizziness Card Details: Negative chest pain, edema and syncope Resp Details: Negative for SOB, cough and wheezing GI Details: Negative indigestion/heartburn, nausea, abdominal pain, bowel changes, diarrhea, constipation and bloody stool. Neuro Details: Memory problems continue. Negative for epilepsy, palsy, stroke, changes in speech, tingling and weakness Psych Details: anxiety, depression stable with current treatment. Endo Details: Negative for polyuria and polydypsia Ez/Lymph Details: Negative for excessive bruising or bleeding. Physical Exam Vital Signs: Last Vital Signs Pulse 66 04/30/23 11:09 BP 142/70 H 04/30/23 11:09 Pulse Ox 99 04/30/23 11:09 Oxygen Delivery Method Room Air 04/30/23 11:09 BMI result Body Mass Index 21.2 APPEARANCE: Patient in no acute distress EYES no redness, pupils equal and reactive to light, eyelids normal. No temporal artery tenderness, redness or swelling. Cervical Spine:.? Full range of motion without pain; no tenderness. Thoracic Spine:.? No scoliosis.? No tenderness on palpation. Lumbar Spine:.? Alignment normal.? Full range of motion with slight pain at the extremes of flexion. No tenderness. Chest Wall:.? No tenderness, swelling, increased warmth or erythema. Hands:.? Normal pain-free range of motion without tenderness, soft tissue swelling, increased warmth or erythema. There is some slight PIP bony enlargement but those joints are not tender. There is no thenar atrophy, triggering or sensory loss. Wrists:.? Normal pain-free range of motion without tenderness, swelling, increased warmth or erythema. Elbows:. Normal pain-free range of motion without tenderness, swelling, increased warmth or erythema. Shoulders:??Left: There is mild pain with abduction at 75 degrees but motion is limited to about 90 degrees of abduction. She can only manage about 10 or 15 degrees of internal or external rotation. There is minimal anterior tenderness with questionable abductor weakness with no adenopathy. Right: Full range of motion without pain. No tenderness, weakness, swelling, increased warmth or erythema. Hips:? Full range of motion without pain. Hip bursa:? No tenderness. Knees:??Normal pain-free range of motion without tenderness, swelling, increased warmth or erythema.? There is no effusion or crepitation Ankles:? Normal pain-free range of motion without tenderness, swelling, increased warmth or erythema. Feet: Normal pain-free range of motion with some mild 1st MTP bony enlargement, there is some hallux valgus deformity, more prominent on the left. The left 2nd toe over rides the 1st toe. There are however no areas of tenderness, soft tissue swelling, increased warmth or erythema. The skin envelope is intact. No sensory loss. Results Reviewed Results Reviewed: Laboratory Tests 04/27/23 08:35 ESR 7 C-Reactive Protein < 0.10 Assessment & Plan Assessment & Plan (1) PMR (polymyalgia rheumatica): Comment: on Prednisone since 12/07, f/u rheumatology Code(s): M35.3 - Polymyalgia rheumatica Plan PMR and presently without any signs of active inflammatory symptoms. We will switch her to the 2.5 mg prednisone tablets and have her take 7.5 mg daily. We will check lab work before the next visit in about 3 months. Orders: Orders Erythrocyte Sedimentation Rate Today M35.3 - Polymyalgia rheumatica C Reactive Protein Today M35.3 - Polymyalgia rheumatica Medications: New prednisone 7.5 mg (3 x 2.5 mg) PO DAILY 90 tabs 3RF M35.3 - Polymyalgia rheumatica Discontinued prednisone Discontinued Reason: Doctor's Order 10 mg (2 x 5 mg) PO DAILY 60 tabs 2RF M35.3 - Polymyalgia rheumatica Coding Level of Care Code Est Pt Level 3 (49430) Diagnoses PMR (polymyalgia rheumatica) M35.3
== END 2023-04-30 11:38 | disposition home or self-care (01) ==
PROVIDERS: PCP Internal Medicine; Visit Provider Internal Medicine Rheumatology
DX: M35.3 Polymyalgia rheumatica (principal)
CPT/HCPCS: 99213

== ENCOUNTER → 2023-04-30 10:58 | Outpatient (BNVA) | payer MEDICARE, SELFPAY | PROVIDERS: PCP Internal Medicine; Visit Provider Internal Medicine Rheumatology | DX: M35.3 Polymyalgia rheumatica (principal) | CPT/HCPCS: 99212 ==

== ENCOUNTER 2023-06-08 08:16 | Outpatient (REF) | payer MEDICARE, SELFPAY ==
[2023-06-08 11:41] LABS: MANUAL DIFF FLAG NO
[2023-06-08 11:57] LABS: Basophils Percent Auto 0.6 % (0-2); Eosinophils Percent Auto 0.6 % (0-4); Hemoglobin 11.2 g/dl (12.0-16.0); Imm Gran Abs Auto 0.03 X10*3/uL (0.00-0.03); Imm Gran Pct Auto 0.4 % (0.0-0.4); Lymphocytes Absolute Auto 2.5 X10*3/uL (1.2-4.9); Lymphocytes Percent Auto 36.4 % (20-40); Mean Corpuscular HGB Conc 32.9 g/dl (31.0-35.0); Mean Corpuscular Hemoglobin 32.1 pg (27.0-33.0); Mean Corpuscular Volume 97.4 fL (80.0-98.0); Mean Platelet Volume 12.1 fL (9.4-12.3); Monocytes Absolute Auto 0.5 X10*3/uL (0.1-1.2); Monocytes Percent Auto 7.3 % (2-11); Neutrophils Absolute Auto 3.7 x10*3/uL (2.0-8.3); Neutrophils Percent Auto 54.7 % (45-73); Platelet Count 191 X10*3/uL (160-400); Red Blood Count 3.49 X10*6/uL (4.20-5.50); Red Cell Distribution Width 13.8 % (11.0-16.0); White Blood Count 6.8 X10*3/uL (4.8-10.8)
[2023-06-08 12:09] LABS: Estimated Average Glucose 194 mg/dL; Hemoglobin A1c % 8.4 % (<6.0)
[2023-06-08 12:25] LABS: Alanine Aminotransferase 15 U/L (0-31); Albumin Level 4.4 g/dL (3.5-5.0); Alkaline Phosphatase 56 U/L (39-117); Anion Gap 12 (12-20); Aspartate Amino Transferase 12 U/L (5-31); Bilirubin Total 0.5 mg/dL (0.0-1.0); Blood Urea Nitrogen 23 mg/dL (9-16); Calcium 9.7 mg/dL (8.4-10.2); Carbon Dioxide 28 mmol/L (22-29); Chloride 101 mmol/L (96-108); Cholesterol 190 mg/dL (<200); Estimated Glomerular Filt Rate 37; Glucose Fasting 165 mg/dL (60-99); HDL Cholesterol 99 mg/dL (>40); LDL Cholesterol Calculated 73 mg/dL (<100); Potassium 4.1 mmol/L (3.3-5.1); Sodium 137 mmol/L (135-145); Triglycerides 93 mg/dL (<150)
== END 2023-06-08 08:17 | disposition home or self-care (01) ==
LOC: HO.HMGCLDS 08:16
PROVIDERS: PCP Internal Medicine; Visit Provider Internal Medicine
DX: Z00.00 Encounter for general adult medical examination without abnormal findings (principal); M35.3 Polymyalgia rheumatica; E11.22 Type 2 diabetes mellitus with diabetic chronic kidney disease; N18.30 Chronic kidney disease, stage 3 unspecified
CPT/HCPCS: 36415; 80053; 80061; 83036; 85025

== ENCOUNTER 2023-06-09 10:57 | Outpatient (AMB) | payer MEDICARE, SELFPAY ==
[2023-06-09 11:28] VITALS: BP 110/64; PULSE 67; O2SAT 97; BMI 21.0
--- NOTE | 2023-06-09 11:28 | A.OFFPC_ITS ---
Vital Signs 06/09/23 11:28 Height 5 ft 5 in Weight 126 lb BMI 21.0 BP 110/64 Blood Pressure Location Lt brachial Position Sitting Pulse 67 Pulse Source Pulse Oximeter Pulse Oximetry (%) 97 Oxygen Delivery Method Room Air Intake Visit Reasons: 3 month fu Intake Note: Pt is here today for 3 months follow up visit. Allergies peanuts Allergy (Unknown, Uncoded 06/09/23 11:32) anaphylaxis Medication List - Last Reconciled 06/09/23 by Elana Rubio MD alendronate 70 mg PO QWEEK amlodipine 2.5 mg PO DAILY citalopram 20 mg PO DAILY donepezil 1/2 tab qd for 4 weeks then 1 tab qd orally daily; fluorouracil 5% appl topical hydrocortisone 2.5% appl topical ibuprofen 400 mg PO Q8H PRN imiquimod 5% topical lisinopril 10 mg PO DAILY metformin ER 500 mg PO DAILY prednisone 7.5 mg (3 x 2.5 mg) PO DAILY simvastatin 10 mg PO BEDTIME Tobacco use date assessed: 06/09/23 Fall risk assessment: No Falls in past year Last assessed Fall Risk: 06/09/23 Dental Screening Dental Screen Date: 06/09/23 Did you have a dental visit in the last 12 months?: Yes Did you have a dental problem in the last 6 months where you did not have access to dental care?: No Was dental information given to patient?: Patient has dentist HPI 3 month fu HPI Details Patient presents for the follow-up on hypertension hyperlipidemia diabetes and dementia. According to her sister patient has not been taking her medications regularly before she took over. [facility] Medical History Anxiety Cognitive impairment, mild, so stated CKD (chronic kidney disease) stage 3, GFR 30-59 ml/min DM type 2 (diabetes mellitus, type 2) Hyperlipidemia HTN (hypertension) Squamous cell carcinoma of right lower leg Diabetes mellitus Skin growth Surgical History History of squamous cell carcinoma excision (08/13/18) History of excision of mass (02/20/15) History of hand surgery History of tonsillectomy and adenoidectomy History of excision of lesion (05/30/09) History of excision of lesion (05/03/18) Status post cataract surgery Family History Mother No problems noted. Father No problems noted. Daughter History of breast cancer Paternal Grandmother Breast cancer Social History Household Members: Family and None Housing: House Alcohol intake: current Alcohol intake frequency: a few times a week Patient Tobacco Use Status: Former Tobacco user e-Cigarette/Vaping Use: Never Used Current occupational status: retired Cognitive needs: No Hearing needs: No Vision needs: Yes Questionnaire Thrive Questionnaire Date Thrive assessed: 06/23/22 AUDIT C Alcohol Use Questionnaire (AUDIT-C) 1. How often do you have a drink containing alcohol?: 2-3 times a week 2. How many drinks containing alcohol do you have on a typical day when you are drinking?: 1 or 2 3. How often do you have six or more drinks on one occasion?: Never Total Score: 3 ANAYELI-7 AMB Questionnaire ANAYELI-7 Date ANAYELI - 7 assessed: 06/23/22 Feeling nervous, anxious, or on edge: 3 = Nearly every day Not being able to stop or control worryin = Not at all Worrying too much about different things: 1 = Several days Trouble relaxin = Several days Being so restless that it is hard to sit still: 0 = Not at all Becoming easily annoyed or irritable: 2 = More than half the days Feeling afraid as if something awful might happen: 0 = Not at all Total ANAYELI-7 score (0-4 normal; 5-9 mild; 10-14 moderate; 15-21 severe): 7 Source: Developed by Drs. Trey Dolan, Tova Pereira, Cholo Damon and colleagues, with an educational alvaro from [employer]. Review of Systems Const All systems reviewed & are unremarkable except as noted in HPI and below Reports no additional complaints Eyes Reports no additional complaints ENT Reports no additional complaints Card Reports no additional complaints Resp Reports no additional complaints GI Reports no additional complaints Reports no additional complaints Physical exam (Primary Care) Vital Signs: Last Vital Signs Pulse 67 06/09/23 11:28 BP 110/64 06/09/23 11:28 Pulse Ox 97 06/09/23 11:28 Oxygen Delivery Method Room Air 06/09/23 11:28 BMI result Body Mass Index 21.0 Tobacco/Smoking Status: Tobacco use Status Tobacco use date assessed 06/09/23 06/09/23 11:38 Patient Tobacco Use Status Former Tobacco user 06/09/23 11:38 e-Cigarette/Vaping Use Never Used 06/09/23 11:28 Thrive Assessment: Date of Thrive Assessment Date Thrive assessed 06/23/22 06/09/23 11:28 Const General: no acute distress HENMT Head: Yes normal to inspection Neck Neck: Yes supple Resp Effort & Inspection: normal respiratory effort Auscultation: clear to auscultation bilaterally Cardio Rhythm: regular rhythm Heart sounds: S1 normal heart sound present and S2 normal heart sound present GI Inspection: Yes normal to inspection Palpation (GI): Soft to palpation Assessment and Plan Assessment & Plan (1) CKD (chronic kidney disease) stage 3, GFR 30-59 ml/min: Code(s): N18.30 - Chronic kidney disease, stage 3 unspecified Plan: Monitor renal function avoid NSAID (2) DM type 2 (diabetes mellitus, type 2): Code(s): E11.9 - Type 2 diabetes mellitus without complications Plan: A1c is down to 8.4 since patient started taking her medications regularly. ADA diet increase physical activity discussed with the patient. Adding Farxiga or Jardiance discussed with the patient but she declined. Patient will follow-up in 3 months with a fasting labs before (3) Hyperlipidemia: Code(s): E78.5 - Hyperlipidemia, unspecified Plan: Continue statin (4) HTN (hypertension): Code(s): I10 - Essential (primary) hypertension Plan: Continue current medications (5) PMR (polymyalgia rheumatica): Comment: on Prednisone since 12/07, f/u rheumatology Code(s): M35.3 - Polymyalgia rheumatica Plan: tapering dose of prednisone and follow-up with Rheumatology Orders: Orders Comprehensive [place]. Panel Fast 4 Months E11.9 - Type 2 diabetes mellitus without complications, E78.5 - Hyperlipidemia, unspecified, I10 - Essential (primary) hypertension, N18.30 - Chronic kidney disease, stage 3 unspecified Hemoglobin A1c 4 Months E11.9 - Type 2 diabetes mellitus without complications, E78.5 - Hyperlipidemia, unspecified, I10 - Essential (primary) hypertension, N18.30 - Chronic kidney disease, stage 3 unspecified Lipid Panel 4 Months E11.9 - Type 2 diabetes mellitus without complications, E78.5 - Hyperlipidemia, unspecified, I10 - Essential (primary) hypertension, N18.30 - Chronic kidney disease, stage 3 unspecified Microalbumin, Random (w Creat) 4 Months E11.9 - Type 2 diabetes mellitus without complications, E78.5 - Hyperlipidemia, unspecified, I10 - Essential (primary) hypertension, N18.30 - Chronic kidney disease, stage 3 unspecified IRON PROFILE 4 Months E11.9 - Type 2 diabetes mellitus without complications, E78.5 - Hyperlipidemia, unspecified, I10 - Essential (primary) hypertension, N18.30 - Chronic kidney disease, stage 3 unspecified Vitamin B12 and Folate 4 Months E11.9 - Type 2 diabetes mellitus without complications, E78.5 - Hyperlipidemia, unspecified, I10 - Essential (primary) hypertension, N18.30 - Chronic kidney disease, stage 3 unspecified Medications: Discontinued ibuprofen for muscle pain Discontinued Reason: Doctor's Order 400 mg PO Q8H PRN 14 tabs 0RF pain M79.10 - Myalgia, unspecified site Coding Level of Care Code Est Pt Level 4 (13716) Diagnoses CKD (chronic kidney disease) stage 3, GFR 30-59 ml/min N18.30 DM type 2 (diabetes mellitus, type 2) E11.9 Hyperlipidemia E78.5 HTN (hypertension) I10 PMR (polymyalgia rheumatica) M35.3
== END 2023-06-09 12:19 | disposition home or self-care (01) ==
PROVIDERS: PCP Internal Medicine; Visit Provider Internal Medicine
DX: I12.9 Hypertensive chronic kidney disease with stage 1 through stage 4 chronic kidney disease, or unspecified chronic kidney disease (principal); N18.30 Chronic kidney disease, stage 3 unspecified; E11.22 Type 2 diabetes mellitus with diabetic chronic kidney disease; M35.3 Polymyalgia rheumatica; E78.5 Hyperlipidemia, unspecified
CPT/HCPCS: 99214

== ENCOUNTER 2023-07-22 12:54 | Outpatient (RCR) | payer MEDICARE, SELFPAY ==
--- NOTE | 2023-08-04 10:39 | MHC.SP.ADU ---
Referring provider: Verona Lee MD Reason for Referral: Assess for cognitive [place] Type of Treatment: 09649 Standardized Cognitive Performance Testing, per hour Date of Plan of Treatment: 07/21/22 Onset of Symptoms/Illness: 07/21/20 Date Treatment Started: 07/21/22 Medical Diagnosis: Mild cognitive impairment of uncertain or unknown etiology Primary Speech Language Diagnosis: I69.911 Memory deficit Secondary Speech Language Diagnosis: History Liil Pineda is an 82 year old woman who was referred to the clinic by her Neurologist, Dr. Lee, to be assessed for cognitive therapy. Lili came to the appointment with her sister, who assisted with providing some of the background information. 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 She lives with her and sister in a private home in [place], and reports that she has lived there all of her life. She reports that she has ad increasing difficulty with her memory, with the problem becoming very noticeable to her and others two years ago. She has great difficulty recalling or keeping track of something that has just been said to her, leading to confusion and difficulty on a day to day basis. Isaura has difficulty keeping track of her appointments, following directions, carrying on conversations, and completing tasks (e.g. going shopping and getting confused about locations of items or why she went to a certain aisle). She reports that she is not driving much due to becoming confused about where she is going (her sister related a story of Lili arriving at a [employer] instead of a regular hair appointment, even though she had been told and had it written down which appointment she was going to). Her sister reported that Lili's is very vigilant with her, and tries to help, orient and redirect her throughout her day. Lili reports that she still enjoys reading and can put down a book, pick it up at a later time, and still remember the plot and characters. She also enjoys doing word games and puzzles on her IPAD. Lili reports some strategies of writing things down, but then tends to lose these notes or forgets to look back at them. Medical History: Cancer: other Diabetes High Blood Pressure Other: Anxiety, CKD Stage 3, DM Type 2, Hyperlipidemia, HTN, Squamous cell carcinoma of right lower leg Medication List: See Medical Chart Recent Hospitalizations: No Respiratory Needs: Room Air Patient Orientation: Alert & Oriented x 4 Social History: Employment Status: Retired Highest level of education obtained: Completed some college. Current Living Situation: Lives in a private home in [place] with her and sister. Isaura and her have three adult children and a number of grandchildren. Past Speech Language Therapy: None Other Therapies Seen in Current Calendar Year: None reported Reported Speech, Language, Cognition difficulties: Memory, Problem Solving Comments: On evaluation today, Lili presents with a moderate impairment of memory function and related problem solving issues. Quality of Life: Good Patient Stated Goal of Speech-Language Therapy: Trial period of Cognitive Therapy to provide strategies and exercises for memory function. Assessment Speech Production: Articulate Clinical Impression: Intact Observations: Isaura presents with clear articulate speech. She reports some difficulty at times with word retrieval in conversation. Informal Voice Assessment: Voice Loudness: Normal Voice Nasal Resonance: Voice Oral Resonance: Normal Voice Phonatory-based Quality: Normal Voice Pitch: Normal Clinical Impression: Intact Tests of Cognition: RBANS Clinical Impression: Impaired Observations: The Repeatable Battery for the Assessment of Neuropsychological Status (RBANS-Update Form A) was used to assess aspects of cognitive memory, language and attention skills. The RBANS is considered a screening battery for adult cognitive function, and is repeatable for the purpose of evaluating any changes in function. Composite domains assessed in this evaluation are: Immediate Memory; Visuospatial/Constructional; Language; Attention; and Delayed Memory. Domain index scores and percentile ranking are the following: Subtest/Domain Immediate Memory: Index Score: 53; Percentile: <.1 Visuospatial/Constructional: Index Score: 72; Percentile: 3 Language: Index Score: 90; Percentile: 25 Attention: Index Score: 91; Percentile: 26 Delayed Memory: Index Score: 40; Percentile <0.1 TOTAL TEST: Index Score: 61; Percentile <.5 Commentary: On this test battery, Isaura evidenced areas of relative strength with skills associated with language and attention, receiving scores that fell in the low average range. However she evidenced significant needs in the areas of immediate recall of information (short term and working memory) as well as remote recall of information, whether it was presented verbally or visually. She additionally demonstrated a mild area of impairment with visual memory and processing. During testing, Lili was noted to be anxious and at times seemed overwhelmed, which may have affected the testing outcome. Impressions and Recommendations Summary: On assessment today, Lili presents with a moderate impairment of memory and processing skills. While Lili's general language skills are quite strong, her difficulties with memory and processing will likely cumulatively affects her general communication skills, due to losing track of what has been said, repeating herself, and having difficulty with word retrieval in context. Immediate recall of verbally presented information was the greatest area of need noted today, as well as delayed recall/retention of information. Lili additionally demonstrated limited use of strategies for recall or learning new information during the assessment. Lili will generally find learning and retaining new information very challenging. Lili also demonstrated a mild impairment with visually processing and interpreting visual information, which may result in visual confusion, losing items, and difficulty interpreting new, visual information. It is important for family members and others close to Lili to know that remembering and recalling information and details will be very challenging, and that learning new tasks, however mundane, may take more time, and will need structure and practice in order to complete them. It may be at times hard to anticipate what she might have difficulty with or what he cannot remember. It is recommended that Lili return for a trial period of cognitive therapy to instruct strategies for managing memory and processing needs. Impact on Daily Function/Activity Limitations: Daily Activities: Moderate Interpersonal Interactions: Moderate Community: Moderate Prognosis for Improvement: Fair Recommendation for Speech Therapy: Outpatient Speech Therapy Frequency/Duration: One weekly, 45 Minute cognitive therapy session for a period of 8-12 weeks. Date Range for Service Requested: Up to three months Time to Reassess: PRN Longterm Goals: Lili will apply strategies, applications and accommodations to manage tasks that require immediate recall and processing in four out of five contexts. Short Term Goals: Goal # : Goal # 1 : Lili will use a rehearsal strategy to recall a detail or specific information from visual or verbal presented information with 80% accuracy Goal Status: Goal# : Goal# 2 : Lili will use a visualization strategy to recall a detail or specific information from verbally presented information with 80% accuracy. Goal Status: Goal # : Goal # 3: Lili will use an association strategy to retain and retrieve specific information from visually or verbally presented information with 80% accuracy. Goal Status: Goal # : Goal #4: Lili will electively use an chidi or tech device to record and retrieve needed information in four out of five contexts. Goal Status: Patient Education: Completed: Yes Patient/Caregiver Education: Described Results of Evaluation Patient expressed understanding of evaluation Patient agrees with goals and treatment plan Comments/Barriers to Learning: Senior Net C Developer Clinican/Clinical Fellow: No Supervisory Statement: No Speech Language Pathologist: Kristal Figueroa M.A., CCC-DROSOPHERE OPERATOR
== END 2023-09-03 13:52 | disposition still patient (30) ==
LOC: HO.SH 12:54
PROVIDERS: Visit Provider Psychiatry & Neurology Neurology
DX: G31.84 Mild cognitive impairment of uncertain or unknown etiology (principal)
CPT/HCPCS: 96125

== ENCOUNTER 2023-08-04 11:32 | Outpatient (REF) | payer MEDICARE, SELFPAY ==
[2023-08-04 14:31] LABS: Erythrocyte Sedimentation Rate 7 MM/HR (0-20)
== END 2023-08-04 11:33 | disposition home or self-care (01) ==
LOC: HO.HMGCLDS 11:32
PROVIDERS: PCP Internal Medicine; Visit Provider Internal Medicine Rheumatology
DX: M35.3 Polymyalgia rheumatica (principal)
CPT/HCPCS: 36415; 85652; 86140

== ENCOUNTER 2023-08-06 12:33 | Outpatient (AMB) | payer MEDICARE, SELFPAY ==
--- NOTE | 2023-08-06 12:36 | MHC.OFFVIS ---
Intake Vital Signs 08/06/23 12:37 Height 5 ft 5 in Weight 128 lb 4.944 oz BMI 21.3 BP 126/78 Blood Pressure Location Rt brachial Position Sitting Pulse 65 Pulse Source Pulse Oximeter Temp 97 F Temp Source Skin Pulse Oximetry (%) 97 Oxygen Delivery Method Room Air Intake Visit Reasons: pmr /CONFIRMED Intake Note: Patient last seen 04/30/[address] Nice, presents today for follow up and test results. Hand Binder Cutter Required: No Accompanied by: Sister Allergies peanuts Allergy (Unknown, Uncoded 08/06/23 12:37) anaphylaxis HPI HPI Comments History of Present Illness Details Ms. Pineda returns for evaluation of her PMR. She is accompanied by her sister who gives most of the history. The patient and the sister indicate the patient does not really have any significant muscle, bone or joint pains. 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 When asked why she does not lift her hands she says that it hurts. She is currently at 7.5 mg prednisone daily. There has been no headache, jaw claudication or visual disturbance. She does take alendronate 70 mg once a week for osteoporosis. The sister continues to monitor her taking the medications because of memory issues. While they were on vacation the patient apparently took the alendronate 2 days in a row. This was when the sister decided to take over the medication administration for the patient. [facility] Medical History Anxiety Cognitive impairment, mild, so stated CKD (chronic kidney disease) stage 3, GFR 30-59 ml/min DM type 2 (diabetes mellitus, type 2) Hyperlipidemia HTN (hypertension) Squamous cell carcinoma of right lower leg Diabetes mellitus Skin growth Surgical History History of squamous cell carcinoma excision (08/13/18) History of excision of mass (02/20/15) History of hand surgery History of tonsillectomy and adenoidectomy History of excision of lesion (05/30/09) History of excision of lesion (05/03/18) Status post cataract surgery Family History Mother No problems noted. Father No problems noted. Daughter History of breast cancer Paternal Grandmother Breast cancer Social History Household Members: Family and None Housing: House Alcohol intake: current Alcohol intake frequency: a few times a week Patient Tobacco Use Status: Former Tobacco user e-Cigarette/Vaping Use: Never Used Current occupational status: retired Cognitive needs: No Hearing needs: No Vision needs: Yes Review of Systems Const All systems reviewed & are unremarkable except as noted in HPI and below Physical Exam Vital Signs: Last Vital Signs Temp 97 F 08/06/23 12:37 Pulse 65 08/06/23 12:37 BP 126/78 08/06/23 12:37 Pulse Ox 97 08/06/23 12:37 Oxygen Delivery Method Room Air 08/06/23 12:37 BMI result Body Mass Index 21.3 APPEARANCE: Patient in no acute distress EYES no redness, pupils equal and reactive to light, eyelids normal. No temporal artery tenderness, redness or swelling. Cervical Spine:.? Full range of motion without pain; no tenderness. Thoracic Spine:.? No scoliosis.? No tenderness on palpation. Lumbar Spine:.? Alignment normal.? Full range of motion with slight pain at the extremes of flexion. No tenderness. Chest Wall:.? No tenderness, swelling, increased warmth or erythema. Hands:.? Normal pain-free range of motion without tenderness, soft tissue swelling, increased warmth or erythema. There is some slight PIP bony enlargement but those joints are not tender. There is no thenar atrophy, triggering or sensory loss. Wrists:.? Normal pain-free range of motion without tenderness, swelling, increased warmth or erythema. Elbows:. Normal pain-free range of motion without tenderness, swelling, increased warmth or erythema. Shoulders:??Left: There is mild pain with abduction at 75 degrees but motion is limited to about 90 degrees of abduction. She can only manage about 10 or 15 degrees of internal or external rotation. There is minimal anterior tenderness with questionable abductor weakness with no adenopathy. Right: Full range of motion without pain. No tenderness, weakness, swelling, increased warmth or erythema. Hips:? Full range of motion without pain. Hip bursa:? No tenderness. Knees:??Normal pain-free range of motion without tenderness, swelling, increased warmth or erythema.? There is no effusion or crepitation Ankles:? Normal pain-free range of motion without tenderness, swelling, increased warmth or erythema. Feet: Normal pain-free range of motion with some mild 1st MTP bony enlargement, there is some hallux valgus deformity, more prominent on the left. The left 2nd toe over rides the 1st toe. There are however no areas of tenderness, soft tissue swelling, increased warmth or erythema. The skin envelope is intact. No sensory loss. Results Reviewed Results Reviewed: Laboratory Tests 08/04/23 11:47 ESR 7 C-Reactive Protein 0.30 Assessment & Plan Assessment & Plan (1) PMR (polymyalgia rheumatica): Comment: on Prednisone since 12/07, f/u rheumatology Code(s): M35.3 - Polymyalgia rheumatica Plan PMR and presently without any signs of active inflammatory symptoms. She is able to stand and sit without challenges, no tenderness on PE, and shoulder fatigue with arm movements. We will reduce prednisone to 5mg daily. We will check lab work before the next visit in about 3 months. Orders: Orders C Reactive Protein Today M35.3 - Polymyalgia rheumatica Erythrocyte Sedimentation Rate Today M35.3 - Polymyalgia rheumatica Coding Level of Care Code Est Pt Level 3 (88221) Diagnoses PMR (polymyalgia rheumatica) M35.3
[2023-08-06 12:37] VITALS: BP 126/78; PULSE 65; TEMP 36.1; O2SAT 97; BMI 21.3
== END 2023-08-06 13:16 | disposition home or self-care (01) ==
PROVIDERS: PCP Internal Medicine; Visit Provider Nurse Practitioner Family
DX: M35.3 Polymyalgia rheumatica (principal)
CPT/HCPCS: 99213

== ENCOUNTER → 2023-08-06 12:33 | Outpatient (BNVA) | payer MEDICARE, SELFPAY | PROVIDERS: PCP Internal Medicine; Visit Provider Nurse Practitioner Family | DX: M35.3 Polymyalgia rheumatica (principal); Z79.52 Long term (current) use of systemic steroids | CPT/HCPCS: 99212 ==

== ENCOUNTER 2023-08-10 10:27 | Outpatient (AMB) | payer MEDICARE, SELFPAY ==
[2023-08-10 10:32] VITALS: PULSE 71; RESP 16; O2SAT 97
--- NOTE | 2023-08-10 10:32 | A.OFFVIS_ITS ---
Intake Vital Signs 08/10/23 10:32 Respiration 16 Pulse 71 Pulse Source Pulse Oximeter Pulse Oximetry (%) 97 Oxygen Delivery Method Room Air Intake Visit Reasons: 6 mnts f/u appt for Amnesia/LVM Intake Note: Pt presents for 6 month follow up for memory loss. Senior Java [id number] Developer Required: No Allergies peanuts Allergy (Unknown, Uncoded 08/10/23 10:32) anaphylaxis Medication List - Last Reconciled 08/10/23 by Verona Lee MD alendronate 70 mg PO QWEEK amlodipine 2.5 mg PO DAILY citalopram 20 mg PO DAILY donepezil 10 mg PO DAILY fluorouracil 5% appl topical hydrocortisone 2.5% appl topical imiquimod 5% topical lisinopril 10 mg PO DAILY metformin ER 500 mg PO DAILY prednisone 2.5 mg PO BID simvastatin 10 mg PO BEDTIME HPI HPI Comments History of Present Illness Details 82y/o female comes for follow up of mem ory problems. she is accompanied by her sister who helps with history . she feels she is worse, confused with dates.MRI is nonspecific changes Citalopram 10 mg helped mildly with anxiety.she recently got evaluated for cognitive therapy and will be starting soon. The memory issues became noticeable about 2 years ago and has worsened since then. It is mostly short term memory issues. she may have difficulty recalling details of events. she frequently misplaces things, forgot where she parked the car,difficulty with directions,difficulty remembering conversations,repeats questions , she needs reminders for medications etc. Her helps with finances. No changes in behavior, personality , denies hallucinations. she denies snoring or sleep issues. No h/o head injury, [facility] Medical History Anxiety Cognitive impairment, mild, so stated CKD (chronic kidney disease) stage 3, GFR 30-59 ml/min DM type 2 (diabetes mellitus, type 2) Hyperlipidemia HTN (hypertension) Squamous cell carcinoma of right lower leg Diabetes mellitus Skin growth Surgical History History of squamous cell carcinoma excision (08/13/18) History of excision of mass (02/20/15) History of hand surgery History of tonsillectomy and adenoidectomy History of excision of lesion (05/30/09) History of excision of lesion (05/03/18) Status post cataract surgery Family History Mother No problems noted. Father No problems noted. Daughter History of breast cancer Paternal Grandmother Breast cancer Social History Household Members: Family and None Housing: House Alcohol intake: current Alcohol intake frequency: a few times a week Patient Tobacco Use Status: Former Tobacco user e-Cigarette/Vaping Use: Never Used Current occupational status: retired Cognitive needs: No Hearing needs: No Vision needs: Yes Physical Exam Vital Signs: Last Vital Signs Pulse 71 08/10/23 10:32 Resp 16 08/10/23 10:32 Pulse Ox 97 08/10/23 10:32 Oxygen Delivery Method Room Air 08/10/23 10:32 Const General: cooperative, healthy appearing, comfortable and anxious Nutritional Appearance: average body habitus Orientation/consciousness: patient oriented x3 Limitations: no limitations Eyes Pupils: Equal, round and reactive pupils present Neuro General: patient oriented x3, gait normal, tone normal and moves all extremities Cranial nerves: Yes CN's II-XII intact bilaterally, Yes Facial sensation intact/muscles of mastication intact, Yes Equal, round and reactive pupils present, Yes Bilaterally intact EOM present, Yes Nystagmus not present, Yes Normal facial strength present, Yes Midline tongue present and Yes Symmetric palate elevation present Cognition (Neuro): normal cognition Gait exam (Neuro): Normal gait present Motor exam (neuro): 5/5 motor strength present throughout and Normal motor muscle tone present throughout Coordination: smliyr-ib-foef test normal and tandem gait normal Psych Affect: Anxious affect present Assessment & Plan Assessment & Plan (1) Cognitive impairment, mild, so stated: Comment: started on Donepezil Code(s): G31.84 - Mild cognitive impairment of uncertain or unknown etiology (2) Anxiety: Code(s): F41.9 - Anxiety disorder, unspecified Plan MRI brain - nonspecific Donepezil 10 mg qd citalopram 20mg qd for anxiety Cognitive therapy memantine XR 7 mg qd Medications: New memantine 7 mg PO DAILY 30 ea 6RF Changed From prednisone 7.5 mg (3 x 2.5 mg) PO DAILY 90 tabs 3RF M35.3 - Polymyalgia rheumatica To prednisone 2.5 mg PO BID M35.3 - Polymyalgia rheumatica Coding Level of Care Code Est Pt Level 4 (20938) Diagnoses Cognitive impairment, mild, so stated G31.84 Anxiety F41.9
== END 2023-08-10 11:07 | disposition home or self-care (01) ==
PROVIDERS: PCP Internal Medicine; Visit Provider Psychiatry & Neurology Neurology
DX: G31.84 Mild cognitive impairment of uncertain or unknown etiology (principal); F41.9 Anxiety disorder, unspecified
CPT/HCPCS: 99214

== ENCOUNTER → 2023-08-10 10:27 | Outpatient (BNVA) | payer MEDICARE, SELFPAY | PROVIDERS: PCP Internal Medicine; Visit Provider Psychiatry & Neurology Neurology | DX: G31.84 Mild cognitive impairment of uncertain or unknown etiology (principal); F41.9 Anxiety disorder, unspecified | CPT/HCPCS: 99212 ==

== ENCOUNTER 2023-09-21 08:31 | Outpatient (REF) | payer MEDICARE, SELFPAY ==
[2023-09-21 10:52] LABS: Estimated Average Glucose 177 mg/dL; Hemoglobin A1c % 7.8 % (<6.0)
[2023-09-21 10:59] LABS: Alanine Aminotransferase 28 U/L (0-31); Albumin Level 4.4 g/dL (3.5-5.0); Alkaline Phosphatase 64 U/L (39-117); Anion Gap 16 (12-20); Aspartate Amino Transferase 19 U/L (5-31); Bilirubin Total 0.4 mg/dL (0.0-1.0); Blood Urea Nitrogen 30 mg/dL (9-16); Carbon Dioxide 25 mmol/L (22-29); Chloride 102 mmol/L (96-108); Cholesterol 203 mg/dL (<200); Estimated Glomerular Filt Rate 35; Glucose Fasting 170 mg/dL (60-99); HDL Cholesterol 94 mg/dL (>40); Iron 74 mcg/dL (30-160); LDL Cholesterol Calculated 84 mg/dL (<100); Percent Iron Saturation 26 % (15-50); Potassium 4.7 mmol/L (3.3-5.1); Sodium 138 mmol/L (135-145); Total Iron Binding Capacity 280 mcg/dL (228-428); Total Protein 7.2 g/dL (6.5-8.0); Triglycerides 126 mg/dL (<150); Unsaturated Iron Binding 206 ug/dL
[2023-09-21 11:29] LABS: Vitamin B12 432 pg/mL (200-900)
[2023-09-21 11:34] LABS: Creatinine Urine 81.59 mg/dL; Microalbum/Creatinine Ratio Ur 267.1 ug/mg cr (<30)
== END 2023-09-21 08:32 | disposition home or self-care (01) ==
LOC: HO.HMGCLDS 08:31
PROVIDERS: PCP Internal Medicine; Visit Provider Internal Medicine
DX: I12.9 Hypertensive chronic kidney disease with stage 1 through stage 4 chronic kidney disease, or unspecified chronic kidney disease (principal); E11.22 Type 2 diabetes mellitus with diabetic chronic kidney disease; N18.30 Chronic kidney disease, stage 3 unspecified; E78.5 Hyperlipidemia, unspecified
CPT/HCPCS: 36415; 80053; 80061; 82043; 82570; 82607; 82746; 83036; 83540

== ENCOUNTER 2023-09-23 13:26 | Outpatient (AMB) | payer MEDICARE, SELFPAY ==
--- NOTE | 2023-09-23 13:51 | A.OFFPC_ITS ---
Vital Signs 09/23/23 13:56 Height 5 ft 5 in Weight 131 lb BMI 21.8 BP 136/66 Blood Pressure Location Lt brachial Position Sitting Pulse 77 Pulse Source Pulse Oximeter Pulse Oximetry (%) 96 Oxygen Delivery Method Room Air Intake Visit Reasons: 4 Month F/U Intake Note: Pt is here today for 4 months follow up visit on labs. Allergies peanuts Allergy (Unknown, Uncoded 09/23/23 13:58) anaphylaxis Medication List - Last Reconciled 09/23/23 by Elana Rubio MD alendronate 70 mg PO QWEEK amlodipine 2.5 mg PO DAILY citalopram 20 mg PO DAILY donepezil 10 mg PO DAILY fluorouracil 5% appl topical hydrocortisone 2.5% appl topical imiquimod 5% topical lisinopril 10 mg PO DAILY memantine 7 mg PO DAILY metformin ER 500 mg PO DAILY prednisone 2.5 mg PO BID simvastatin 10 mg PO BEDTIME Tobacco use date assessed: 09/23/23 Fall risk assessment: No Falls in past year Last assessed Fall Risk: 09/23/23 Dental Screening Dental Screen Date: 06/09/23 HPI 4 Month F/U HPI Details Patient presents for the follow-up of type 2 diabetes hypertension hyperlipidemia PMR on chronic prednisone. PFS Medical History Anxiety Cognitive impairment, mild, so stated CKD (chronic kidney disease) stage 3, GFR 30-59 ml/min DM type 2 (diabetes mellitus, type 2) Hyperlipidemia HTN (hypertension) Squamous cell carcinoma of right lower leg Diabetes mellitus Skin growth Surgical History History of squamous cell carcinoma excision (08/13/18) History of excision of mass (02/20/15) History of hand surgery History of tonsillectomy and adenoidectomy History of excision of lesion (05/30/09) History of excision of lesion (05/03/18) Status post cataract surgery Family History Mother No problems noted. Father No problems noted. Daughter History of breast cancer Paternal Grandmother Breast cancer Social History Household Members: Family and None Housing: House Alcohol intake: current Alcohol intake frequency: a few times a week Patient Tobacco Use Status: Former Tobacco user e-Cigarette/Vaping Use: Never Used service: No Current occupational status: retired Cognitive needs: No Hearing needs: No Vision needs: Yes Questionnaire PHQ-9 Over the last 2 weeks, how often have you been bothered by any of the following problems? 1. Little interest or pleasure in doing things: not at all 2. Feeling down, depressed, or hopeless: not at all 3. Trouble falling or staying asleep, or sleeping too much: not at all 4. Feeling tired or having little energy: not at all 5. Poor appetite or overeating: not at all 6. Feeling bad about yourself - or that you are a failure or have let yourself or your family down: not at all 7. Trouble concentrating on things, such as reading the newspaper or watching television: not at all 8. Moving or speaking so slowly that other people could have noticed. Or the opposite - being so fidgety or restless that you have been moving around a lot more than usual: not at all 9. Thoughts that you would be better off or of hurting yourself in some way: not at all Total score: 0 Depression Screening Interpretation: Negative Depression Screening Done: Yes Source: Developed by Drs. Trey Dolan, Tova Pereira, Cholo Damon and colleagues, with an educational alvaro from [employer]. Thrive Questionnaire Date Thrive assessed: 09/23/23 I am a: Patient What is your living situation today?: I have a steady place to live Within the past 12 months, did the food you bought not last and you didn't have the money to get more?: Never true Within the past 12 months, did you worry whether your food would run out before you got money to buy more?: Never true Do you have trouble paying for medicines?: No Do you have trouble getting transportation to medical appointments?: No Do you have trouble paying your heating and electricity bill?: No Do you have trouble taking care of your child, family member or friend?: No Do you have trouble with day-to-day activities such as bathing, preparing meals, shopping, managing finances, etc.?: No Are you currently unemployed and looking for a job?: No Are you interested in more education?: No Please select the resources that you would like help with: None THRIVE Score: 0 ANAYELI-7 AMB Questionnaire ANAYELI-7 Date ANAYELI - 7 assessed: 09/23/23 Feeling nervous, anxious, or on edge: 0 = Not at all Not being able to stop or control worryin = Not at all Worrying too much about different things: 0 = Not at all Trouble relaxin = Not at all Being so restless that it is hard to sit still: 0 = Not at all Becoming easily annoyed or irritable: 0 = Not at all Feeling afraid as if something awful might happen: 0 = Not at all Total ANAYELI-7 score (0-4 normal; 5-9 mild; 10-14 moderate; 15-21 severe): 0 Source: Developed by Drs. Trey Dolan, Tova Pereira, Cholo Damon and colleagues, with an educational alvaro from [employer]. Review of Systems Const All systems reviewed & are unremarkable except as noted in HPI and below Card Reports no additional complaints Resp Reports no additional complaints GI Reports no additional complaints Reports no additional complaints Physical exam (Primary Care) Vital Signs: Last Vital Signs Pulse 77 09/23/23 13:56 BP 136/66 09/23/23 13:56 Pulse Ox 96 09/23/23 13:56 Oxygen Delivery Method Room Air 09/23/23 13:56 BMI result Body Mass Index 21.8 Tobacco/Smoking Status: Tobacco use Status Tobacco use date assessed 09/23/23 09/23/23 14:01 Patient Tobacco Use Status Former Tobacco user 09/23/23 13:51 e-Cigarette/Vaping Use Never Used 09/23/23 13:51 PHQ-9: PHQ-9 Score PHQ-9: Total score 0 09/23/23 14:01 Depression Screening Interpretation: Negative Thrive Assessment: Date of Thrive Assessment Date Thrive assessed 09/23/23 09/23/23 14:01 Const General: no acute distress Eyes General: appearance normal, both eyes and all related structures Resp Effort & Inspection: normal respiratory effort Auscultation: clear to auscultation bilaterally Cardio Rhythm: regular rhythm Heart sounds: S1 normal heart sound present and S2 normal heart sound present GI Inspection: Yes normal to inspection Palpation (GI): Soft to palpation Percussion: Yes normal to percussion Auscultation: normal bowel sounds Assessment and Plan Assessment & Plan (1) CKD (chronic kidney disease) stage 3, GFR 30-59 ml/min: Code(s): N18.30 - Chronic kidney disease, stage 3 unspecified Plan: Monitor renal function avoid nephrotoxin start 10 mg of Jardiance (2) DM type 2 (diabetes mellitus, type 2): Code(s): E11.9 - Type 2 diabetes mellitus without complications Plan: A1c is 7.8, ADA diet, increase physical activity discussed with the patient a Jardiance 10 mg a day to metformin. Follow-up in 4 months with a fasting labs before (3) HTN (hypertension): Code(s): I10 - Essential (primary) hypertension Plan: Continue current medications (4) Hyperlipidemia: Code(s): E78.5 - Hyperlipidemia, unspecified Plan: Continue statin (5) Osteopenia after menopause: Comment: T scores 02/2023: LS -0.9, Fem neck -1.8, femur -2.1. Frax 13.1/3.9, started on Fosamax by Rheumatology March 09 Code(s): M85.80 - Other specified disorders of bone density and structure, unspecified site; Z78.0 - Asymptomatic menopausal state Orders: Orders Comprehensive [place]. Panel Fast 4 Months E11.9 - Type 2 diabetes mellitus without complications, E78.5 - Hyperlipidemia, unspecified, I10 - Essential (primary) hypertension, M85.80 - Other specified disorders of bone density and structure, unspecified site, N18.30 - Chronic kidney disease, stage 3 unspecified, Z78.0 - Asymptomatic menopausal state Complete Blood Count Auto Diff 4 Months E11.9 - Type 2 diabetes mellitus without complications, E78.5 - Hyperlipidemia, unspecified, I10 - Essential (primary) hypertension, M85.80 - Other specified disorders of bone density and structure, unspecified site, N18.30 - Chronic kidney disease, stage 3 unspecified, Z78.0 - Asymptomatic menopausal state Hemoglobin A1c 4 Months E11.9 - Type 2 diabetes mellitus without complications, E78.5 - Hyperlipidemia, unspecified, I10 - Essential (primary) hypertension, M85.80 - Other specified disorders of bone density and structure, unspecified site, N18.30 - Chronic kidney disease, stage 3 unspecified, Z78.0 - Asymptomatic menopausal state Lipid Panel 4 Months E11.9 - Type 2 diabetes mellitus without complications, E78.5 - Hyperlipidemia, unspecified, I10 - Essential (primary) hypertension, M85.80 - Other specified disorders of bone density and structure, unspecified site, N18.30 - Chronic kidney disease, stage 3 unspecified, Z78.0 - Asymptomatic menopausal state Medications: New empagliflozin (Jardiance) 10 mg PO DAILY 90 tabs 0RF Coding Level of Care Code Est Pt Level 4 (97906) Diagnoses CKD (chronic kidney disease) stage 3, GFR 30-59 ml/min N18.30 DM type 2 (diabetes mellitus, type 2) E11.9 HTN (hypertension) I10 Hyperlipidemia E78.5 Osteopenia after menopause M85.80; Z78.0
[2023-09-23 13:56] VITALS: BP 136/66; PULSE 77; O2SAT 96; BMI 21.8
== END 2023-09-23 14:22 | disposition home or self-care (01) ==
PROVIDERS: PCP Internal Medicine; Visit Provider Internal Medicine
DX: I12.9 Hypertensive chronic kidney disease with stage 1 through stage 4 chronic kidney disease, or unspecified chronic kidney disease (principal); N18.30 Chronic kidney disease, stage 3 unspecified; E11.22 Type 2 diabetes mellitus with diabetic chronic kidney disease; E78.5 Hyperlipidemia, unspecified; M85.80 Other specified disorders of bone density and structure, unspecified site; Z78.0 Asymptomatic menopausal state
CPT/HCPCS: 99214

== ENCOUNTER 2023-11-02 09:07 | Outpatient (REF) | payer MEDICARE, SELFPAY ==
[2023-11-02 10:39] LABS: C Reactive Protein < 0.10 mg/dL (< or = 0.50)
[2023-11-02 10:51] LABS: Erythrocyte Sedimentation Rate 6 MM/HR (0-20)
== END 2023-11-02 09:08 | disposition home or self-care (01) ==
LOC: HO.HMGCLDS 09:07
PROVIDERS: PCP Internal Medicine; Visit Provider Nurse Practitioner Family
DX: M35.3 Polymyalgia rheumatica (principal)
CPT/HCPCS: 36415; 85652; 86140

== ENCOUNTER 2023-11-06 12:33 | Outpatient (AMB) | payer MEDICARE, SELFPAY ==
[2023-11-06 12:43] VITALS: BP 120/64; PULSE 76; O2SAT 98; BMI 21.3
--- NOTE | 2023-11-06 12:43 | MHC.OFFVIS ---
Vital Signs 11/06/23 12:43 Height 5 ft 5 in Weight 127 lb 13.89 oz BMI 21.3 BP 120/64 Blood Pressure Location Rt brachial Position Sitting Pulse 76 Pulse Source Pulse Oximeter Pulse Oximetry (%) 98 Oxygen Delivery Method Room Air Intake Visit Reasons: PMR Intake Note: Patient last seen 08/06/23 by David, presents today for PMR follow up and test results. Parts Cataloger Required: No Accompanied by: Sister Allergies peanuts Allergy (Unknown, Uncoded 11/06/23 12:51) anaphylaxis HPI Comments Details: Ms. Pineda 82 yoF returns for evaluation of her PMR. She is accompanied by her sister who gives most of the history. The patient and the sister indicate the patient does not really have any significant muscle, bone or joint pains. She has been able to do her hair now and lift her hands above her head. She has been doing the wax on wax off exercises suggested at last visit. She reported re-watching the movie to get the motion right. She no longer keeps her arms tucked to the sides when doing her hair. She is currently at 5 mg prednisone daily started at last visit. There has been no headache, jaw claudication or visual disturbance. She does take alendronate 70 mg once a week for osteoporosis. The sister continues to monitor her taking the medications because of memory issues. While they were on vacation the patient apparently took the alendronate 2 days in a row. This was when the sister decided to take over the medication administration for the patient. [facility] Medical History Anxiety Cognitive impairment, mild, so stated CKD (chronic kidney disease) stage 3, GFR 30-59 ml/min DM type 2 (diabetes mellitus, type 2) Hyperlipidemia HTN (hypertension) Squamous cell carcinoma of right lower leg Diabetes mellitus Skin growth Surgical History History of squamous cell carcinoma excision (08/13/18) History of excision of mass (02/20/15) History of hand surgery History of tonsillectomy and adenoidectomy History of excision of lesion (05/30/09) History of excision of lesion (05/03/18) Status post cataract surgery Family History Mother No problems noted. Father No problems noted. Daughter History of breast cancer Paternal Grandmother Breast cancer Social History Household Members: Family and None Housing: House Alcohol intake: current Alcohol intake frequency: a few times a week Patient Tobacco Use Status: Former Tobacco user e-Cigarette/Vaping Use: Never Used service: No Current occupational status: retired Cognitive needs: No Hearing needs: No Vision needs: Yes Review of Systems Const All systems reviewed & are unremarkable except as noted in HPI and below Physical Exam Vital Signs: Last Vital Signs Pulse 76 11/06/23 12:43 BP 120/64 11/06/23 12:43 Pulse Ox 98 11/06/23 12:43 Oxygen Delivery Method Room Air 11/06/23 12:43 BMI result Body Mass Index 21.3 APPEARANCE: Patient in no acute distress EYES no redness, pupils equal and reactive to light, eyelids normal. No temporal artery tenderness, redness or swelling. Cervical Spine:.? Full range of motion without pain; no tenderness. Thoracic Spine:.? No scoliosis.? No tenderness on palpation. Lumbar Spine:.? Alignment normal.? Full range of motion with slight pain at the extremes of flexion. No tenderness. Chest Wall:.? No tenderness, swelling, increased warmth or erythema. Hands:.? Normal pain-free range of motion without tenderness, soft tissue swelling, increased warmth or erythema. There is some slight PIP bony enlargement but those joints are not tender. There is no thenar atrophy, triggering or sensory loss. Wrists:.? Normal pain-free range of motion without tenderness, swelling, increased warmth or erythema. Elbows:. Normal pain-free range of motion without tenderness, swelling, increased warmth or erythema. Shoulders:??Left: Right: Full range of motion without pain. No tenderness, weakness, swelling, increased warmth or erythema. Right: Full range of motion without pain. No tenderness, weakness, swelling, increased warmth or erythema. Hips:? Full range of motion without pain. Hip bursa:? No tenderness. Knees:??Normal pain-free range of motion without tenderness, swelling, increased warmth or erythema.? There is no effusion or crepitation Ankles:? Normal pain-free range of motion without tenderness, swelling, increased warmth or erythema. Feet: Normal pain-free range of motion with some mild 1st MTP bony enlargement, there is some hallux valgus deformity, more prominent on the left. The left 2nd toe over rides the 1st toe. There are however no areas of tenderness, soft tissue swelling, increased warmth or erythema. The skin envelope is intact. No sensory loss. Results Reviewed Results Reviewed: Laboratory Tests 11/02/23 09:14 ESR 6 C-Reactive Protein < 0.10 Assessment & Plan Assessment & Plan (1) PMR (polymyalgia rheumatica): Comment: on Prednisone since 12/07, f/u rheumatology Code(s): M35.3 - Polymyalgia rheumatica Category: Medical Plan #PMR and presently without any signs of active inflammatory symptoms. ESR/CRP continues at goal. She is able to stand and sit without challenges, no tenderness or shoulder fatigue with arm movements on PE. She maintains good resistance on PE with discomfort. Her sister says she is able to tell when the patient has discomfort and she has not seen any signs of of that. We will reduce prednisone to 2.5mg daily. f/u 3 months Medications: New prednisone 2.5 mg PO BID 90 tabs 0RF M35.3 - Polymyalgia rheumatica Changed From prednisone 2.5 mg PO BID 90 tabs 0RF M35.3 - Polymyalgia rheumatica To prednisone 2.5 mg PO DAILY 90 tabs 0RF M35.3 - Polymyalgia rheumatica Coding Level of Care Code Est Pt Level 3 (51818) Complex EM visit Add On G2211 Diagnoses PMR (polymyalgia rheumatica) M35.3
== END 2023-11-06 13:01 | disposition home or self-care (01) ==
PROVIDERS: PCP Internal Medicine; Visit Provider Nurse Practitioner Family
DX: M35.3 Polymyalgia rheumatica (principal)
CPT/HCPCS: 99213; G2211

== ENCOUNTER → 2023-11-06 12:33 | Outpatient (BNVA) | payer MEDICARE, SELFPAY | PROVIDERS: PCP Internal Medicine; Visit Provider Nurse Practitioner Family | DX: M35.3 Polymyalgia rheumatica (principal) | CPT/HCPCS: 99212 ==

== ENCOUNTER 2024-01-15 08:31 | Outpatient (REF) | payer MEDICARE, SELFPAY ==
[2024-01-15 10:05] LABS: MANUAL DIFF FLAG NO
[2024-01-15 10:12] LABS: Basophils Absolute Auto 0.1 X10*3/uL (0.0-0.2); Basophils Percent Auto 0.6 % (0-2); Eosinophils Absolute Auto 0.1 X10*3/uL (0.0-0.4); Eosinophils Percent Auto 0.8 % (0-4); Hematocrit 31.5 % (37.0-47.0); Hemoglobin 10.7 g/dl (12.0-16.0); Imm Gran Abs Auto 0.03 X10*3/uL (0.00-0.03); Imm Gran Pct Auto 0.4 % (0.0-0.4); Lymphocytes Absolute Auto 2.3 X10*3/uL (1.2-4.9); Lymphocytes Percent Auto 29.9 % (20-40); Mean Corpuscular Hemoglobin 34.2 pg (27.0-33.0); Mean Corpuscular Volume 100.6 fL (80.0-98.0); Mean Platelet Volume 11.5 fL (9.4-12.3); Monocytes Absolute Auto 0.6 X10*3/uL (0.1-1.2); Monocytes Percent Auto 8.1 % (2-11); Neutrophils Absolute Auto 4.7 x10*3/uL (2.0-8.3); Neutrophils Percent Auto 60.2 % (45-73); Platelet Count 181 X10*3/uL (160-400); Red Blood Count 3.13 X10*6/uL (4.20-5.50); Red Cell Distribution Width 12.5 % (11.0-16.0); White Blood Count 7.8 X10*3/uL (4.8-10.8)
[2024-01-15 10:37] LABS: Alanine Aminotransferase 18 U/L (0-31); Albumin Level 4.3 g/dL (3.5-5.0); Alkaline Phosphatase 50 U/L (39-117); Anion Gap 13 (12-20); Aspartate Amino Transferase 18 U/L (5-31); Bilirubin Total 0.3 mg/dL (0.0-1.0); Blood Urea Nitrogen 21 mg/dL (9-16); Calcium 9.7 mg/dL (8.4-10.2); Carbon Dioxide 26 mmol/L (22-29); Chloride 102 mmol/L (96-108); Cholesterol 197 mg/dL (<200); Estimated Glomerular Filt Rate 37; Glucose Fasting 152 mg/dL (60-99); HDL Cholesterol 93 mg/dL (>40); LDL Cholesterol Calculated 66 mg/dL (<100); Potassium 4.6 mmol/L (3.3-5.1); Sodium 136 mmol/L (135-145); Total Protein 6.9 g/dL (6.5-8.0); Triglycerides 191 mg/dL (<150)
[2024-01-15 12:12] LABS: Estimated Average Glucose 148 mg/dL; Hemoglobin A1c % 6.8 % (<6.0)
== END 2024-01-15 08:32 | disposition home or self-care (01) ==
LOC: HO.HMGCLDS 08:31
PROVIDERS: PCP Internal Medicine; Visit Provider Internal Medicine
DX: I12.9 Hypertensive chronic kidney disease with stage 1 through stage 4 chronic kidney disease, or unspecified chronic kidney disease (principal); E11.22 Type 2 diabetes mellitus with diabetic chronic kidney disease; N18.30 Chronic kidney disease, stage 3 unspecified; E78.5 Hyperlipidemia, unspecified; M85.80 Other specified disorders of bone density and structure, unspecified site; Z78.0 Asymptomatic menopausal state
CPT/HCPCS: 36415; 80053; 80061; 83036; 85025

== ENCOUNTER 2024-01-19 10:44 | Outpatient (AMB) | payer MEDICARE, SELFPAY ==
[2024-01-19 10:51] VITALS: BP 124/66; PULSE 63; O2SAT 96; BMI 22.0
--- NOTE | 2024-01-19 10:51 | A.OFFPC_ITS ---
Vital Signs 01/19/24 10:51 Height 5 ft 5 in Weight 132 lb BMI 22.0 BP 124/66 Blood Pressure Location Lt brachial Position Sitting Pulse 63 Pulse Source Pulse Oximeter Pulse Oximetry (%) 96 Oxygen Delivery Method Room Air Intake Visit Reasons: 4M F/U Intake Note: Pt is here today for 4 months follow up visit on labs. Allergies peanuts Allergy (Unknown, Uncoded 01/19/24 10:51) anaphylaxis Medication List - Last Reconciled 01/19/24 by Elana Rubio MD alendronate 70 mg PO QWEEK amlodipine 2.5 mg PO DAILY citalopram 20 mg PO DAILY donepezil 10 mg PO DAILY empagliflozin (Jardiance) 10 mg PO DAILY fluorouracil 5% appl topical hydrocortisone 2.5% appl topical imiquimod 5% topical lisinopril 10 mg PO DAILY memantine 7 mg PO DAILY metformin ER 500 mg PO BEDTIME prednisone 2.5 mg PO DAILY simvastatin 10 mg PO BEDTIME Tobacco use date assessed: 01/19/24 Fall risk assessment: 2 + Falls in past year Last assessed Fall Risk: 01/19/24 Dental Screening Dental Screen Date: 01/19/24 Did you have a dental visit in the last 12 months?: Yes Did you have a dental problem in the last 6 months where you did not have access to dental care?: No Was dental information given to patient?: Patient has dentist HPI 4M F/U HPI Details Patient presents for the follow-up on hypertension chronic kidney disease stage 3 type 2 diabetes dementia stable on current medications PFSH Medical History Anxiety Cognitive impairment, mild, so stated CKD (chronic kidney disease) stage 3, GFR 30-59 ml/min DM type 2 (diabetes mellitus, type 2) Hyperlipidemia HTN (hypertension) Squamous cell carcinoma of right lower leg Diabetes mellitus Skin growth Surgical History History of squamous cell carcinoma excision (08/13/18) History of excision of mass (02/20/15) History of hand surgery History of tonsillectomy and adenoidectomy History of excision of lesion (05/30/09) History of excision of lesion (05/03/18) Status post cataract surgery Family History Mother No problems noted. Father No problems noted. Daughter History of breast cancer Paternal Grandmother Breast cancer Social History Household Members: Family and None Housing: House Alcohol intake: current Alcohol intake frequency: a few times a week Patient Tobacco Use Status: Former Tobacco user e-Cigarette/Vaping Use: Never Used service: No Current occupational status: retired Cognitive needs: No Hearing needs: No Vision needs: Yes Questionnaire PHQ-9 Over the last 2 weeks, how often have you been bothered by any of the following problems? 1. Little interest or pleasure in doing things: not at all 2. Feeling down, depressed, or hopeless: not at all 3. Trouble falling or staying asleep, or sleeping too much: not at all 4. Feeling tired or having little energy: not at all 5. Poor appetite or overeating: not at all 6. Feeling bad about yourself - or that you are a failure or have let yourself or your family down: not at all 7. Trouble concentrating on things, such as reading the newspaper or watching television: not at all 8. Moving or speaking so slowly that other people could have noticed. Or the opposite - being so fidgety or restless that you have been moving around a lot more than usual: not at all 9. Thoughts that you would be better off or of hurting yourself in some way: not at all Total score: 0 Depression Screening Interpretation: Negative Depression Screening Done: Yes 50097 - PHQ-9 Billing: Yes Source: Developed by Drs. Trey Dolan, Tova Pereira, Cholo Damon and colleagues, with an educational alvaro from [email or web address]. Thrive Questionnaire Date Thrive assessed: 01/19/24 I am a: Patient What is your living situation today?: I have a steady place to live Within the past 12 months, did the food you bought not last and you didn't have the money to get more?: Never true Within the past 12 months, did you worry whether your food would run out before you got money to buy more?: Never true Do you have trouble paying for medicines?: No Do you have trouble getting transportation to medical appointments?: No Do you have trouble paying your heating and electricity bill?: No Do you have trouble taking care of your child, family member or friend?: No Do you have trouble with day-to-day activities such as bathing, preparing meals, shopping, managing finances, etc.?: No Are you currently unemployed and looking for a job?: No Are you interested in more education?: No Please select the resources that you would like help with: None Currently or been in a relationship where the following occur: No concerns reported THRIVE Score: 0 AUDIT C Alcohol Use Questionnaire (AUDIT-C) 1. How often do you have a drink containing alcohol?: 2-3 times a week 2. How many drinks containing alcohol do you have on a typical day when you are drinking?: 1 or 2 3. How often do you have six or more drinks on one occasion?: Never Total Score: 3 ANAYELI-7 AMB Questionnaire ANAYELI-7 Date ANAYELI - 7 assessed: 01/19/24 Feeling nervous, anxious, or on edge: 0 = Not at all Not being able to stop or control worryin = Not at all Worrying too much about different things: 0 = Not at all Trouble relaxin = Not at all Being so restless that it is hard to sit still: 0 = Not at all Becoming easily annoyed or irritable: 0 = Not at all Feeling afraid as if something awful might happen: 0 = Not at all Total ANAYELI-7 score (0-4 normal; 5-9 mild; 10-14 moderate; 15-21 severe): 0 Source: Developed by Drs. Trey Dolan, Tova Pereira, Cholo Damon and colleagues, with an educational alvaro from [email or web address]. Review of Systems Const All systems reviewed & are unremarkable except as noted in HPI and below Card Reports no additional complaints GI Reports no additional complaints Reports no additional complaints Physical exam (Primary Care) Vital Signs: Last Vital Signs Pulse 63 01/19/24 10:51 BP 124/66 01/19/24 10:51 Pulse Ox 96 01/19/24 10:51 Oxygen Delivery Method Room Air 01/19/24 10:51 BMI result Body Mass Index 22.0 Tobacco/Smoking Status: Tobacco use Status Tobacco use date assessed 01/19/24 01/19/24 11:00 Patient Tobacco Use Status Former Tobacco user 01/19/24 10:51 e-Cigarette/Vaping Use Never Used 01/19/24 10:51 PHQ-9: PHQ-9 Score PHQ-9: Total score 0 01/19/24 11:00 Depression Screening Interpretation: Negative Thrive Assessment: Date of Thrive Assessment Date Thrive assessed 01/19/24 01/19/24 11:00 Currently or been in a relationship where the following occur: No concerns reported Const General: no acute distress HENMT Face and sinus: Yes normal facial exam Neck Neck: Yes supple Resp Effort & Inspection: normal respiratory effort Auscultation: clear to auscultation bilaterally Cardio Rhythm: regular rhythm Heart sounds: S1 normal heart sound present and S2 normal heart sound present GI Inspection: Yes normal to inspection Palpation (GI): Soft to palpation Percussion: Yes normal to percussion Auscultation: normal bowel sounds Assessment and Plan Assessment & Plan (1) CKD (chronic kidney disease) stage 3, GFR 30-59 ml/min: Code(s): N18.30 - Chronic kidney disease, stage 3 unspecified Plan: Avoid nephrotoxins monitor renal function (2) DM type 2 (diabetes mellitus, type 2): Code(s): E11.9 - Type 2 diabetes mellitus without complications Plan: A1c is down to 6.8, continue ADA diet increase physical activity (3) Hyperlipidemia: Code(s): E78.5 - Hyperlipidemia, unspecified Plan: cont statin, (4) HTN (hypertension): Code(s): I10 - Essential (primary) hypertension Plan: Continue current meds Orders: Orders Complete Blood Count Auto Diff 3 Months D64.9 - Anemia, unspecified, E11.9 - Type 2 diabetes mellitus without complications, N18.30 - Chronic kidney disease, stage 3 unspecified Lipid Panel 3 Months D64.9 - Anemia, unspecified, E11.9 - Type 2 diabetes mellitus without complications, N18.30 - Chronic kidney disease, stage 3 unspecified Microalbumin, Random (w Creat) 3 Months D64.9 - Anemia, unspecified, E11.9 - Type 2 diabetes mellitus without complications, N18.30 - Chronic kidney disease, stage 3 unspecified Vitamin B12 and Folate 3 Months D64.9 - Anemia, unspecified, E11.9 - Type 2 diabetes mellitus without complications, N18.30 - Chronic kidney disease, stage 3 unspecified Comprehensive Lehr. Panel Fast 3 Months D64.9 - Anemia, unspecified, E11.9 - Type 2 diabetes mellitus without complications, N18.30 - Chronic kidney disease, stage 3 unspecified Hemoglobin A1c 3 Months D64.9 - Anemia, unspecified, E11.9 - Type 2 diabetes mellitus without complications, N18.30 - Chronic kidney disease, stage 3 unspecified IRON PROFILE 3 Months D64.9 - Anemia, unspecified, E11.9 - Type 2 diabetes mellitus without complications, N18.30 - Chronic kidney disease, stage 3 unspecified Coding Level of Care Code Est Pt Level 4 (67990) Diagnoses CKD (chronic kidney disease) stage 3, GFR 30-59 ml/min N18.30 DM type 2 (diabetes mellitus, type 2) E11.9 Hyperlipidemia E78.5 HTN (hypertension) I10
== END 2024-01-19 11:28 | disposition home or self-care (01) ==
PROVIDERS: PCP Internal Medicine; Visit Provider Internal Medicine
DX: I12.9 Hypertensive chronic kidney disease with stage 1 through stage 4 chronic kidney disease, or unspecified chronic kidney disease (principal); N18.30 Chronic kidney disease, stage 3 unspecified; E11.22 Type 2 diabetes mellitus with diabetic chronic kidney disease; E78.5 Hyperlipidemia, unspecified
CPT/HCPCS: 99214

== ENCOUNTER 2024-02-09 13:40 | Outpatient (AMB) | payer MEDICARE, SELFPAY ==
--- NOTE | 2024-02-09 13:45 | MHC.OFFVIS ---
Vital Signs 02/09/24 13:49 Height 5 ft 5 in Weight 134 lb 11.239 oz BMI 22.4 BP 124/60 Blood Pressure Location Rt brachial Position Sitting Pulse 69 Pulse Source Pulse Oximeter Pulse Oximetry (%) 98 Oxygen Delivery Method Room Air Intake Visit Reasons: PRM Intake Note: Patient presents for PRM. Allergies peanuts Allergy (Severe, Uncoded 02/09/24 13:49) anaphylaxis Medication List - Last Reconciled 02/09/24 by Rena Lopez MD alendronate 70 mg PO QWEEK amlodipine 2.5 mg PO DAILY citalopram 20 mg PO DAILY donepezil 10 mg PO DAILY empagliflozin (Jardiance) 10 mg PO DAILY fluorouracil 5% appl topical hydrocortisone 2.5% appl topical imiquimod 5% topical lisinopril 10 mg PO DAILY memantine 7 mg PO DAILY metformin ER 500 mg PO BEDTIME prednisone 2.5 mg PO DAILY simvastatin 10 mg PO BEDTIME HPI Comments Details: This is an 83-year-old female with PMR who presents for follow-up with her sister. Patient and her sister state that she is doing fairly well. Denies any joint pain swelling or stiffness. On prednisone 2.5 mg daily. [facility], [facility] Medical History Anxiety Cognitive impairment, mild, so stated CKD (chronic kidney disease) stage 3, GFR 30-59 ml/min DM type 2 (diabetes mellitus, type 2) Hyperlipidemia HTN (hypertension) Squamous cell carcinoma of right lower leg Diabetes mellitus Skin growth Surgical History History of squamous cell carcinoma excision (08/13/18) History of excision of mass (02/20/15) History of hand surgery History of tonsillectomy and adenoidectomy History of excision of lesion (05/30/09) History of excision of lesion (05/03/18) Status post cataract surgery Family History Mother No problems noted. Father No problems noted. Daughter History of breast cancer Paternal Grandmother Breast cancer Social History Household Members: Family and None Housing: House Alcohol intake: current Alcohol intake frequency: a few times a week Patient Tobacco Use Status: Former Tobacco user e-Cigarette/Vaping Use: Never Used service: No Current occupational status: retired Cognitive needs: No Hearing needs: No Vision needs: Yes Female Reproductive History Menstrual Total pregnancies: 1 Review of Systems Musc Denies arthralgias, Denies joint swelling and Denies stiffness Physical Exam Vital Signs: Last Vital Signs Pulse 69 02/09/24 13:49 BP 124/60 02/09/24 13:49 Pulse Ox 98 02/09/24 13:49 Oxygen Delivery Method Room Air 02/09/24 13:49 BMI result Body Mass Index 22.4 Const General: cooperative, healthy appearing and comfortable Nutritional Appearance: average body habitus Orientation/consciousness: oriented to person and oriented to place Limitations: no limitations HEENT Head: Yes normocephalic and Yes atraumatic Mouth: moist mucous membranes Resp Effort & Inspection: normal respiratory effort and able to speak in complete sentences Auscultation: clear to auscultation bilaterally Cardio Rate: regular rate Skin Other: Significant dry fragile skin and superficial bruising, (senile purpura) Neuro General: oriented to person and oriented to place Extrem Other: Normal range of motion of hands, wrists, elbows and shoulders without pain No hip pain with manipulation bilaterally no trochanteric bursa area tenderness Assessment & Plan Assessment & Plan (1) PMR (polymyalgia rheumatica): Comment: on Prednisone since 12/07 Code(s): M35.3 - Polymyalgia rheumatica Category: Medical Plan: This is a 83-year-old female with PMR who presents for follow-up. She is doing very well on prednisone 2.5 mg daily. Reduce prednisone to 2 mg daily from tomorrow for 1 month then reduce to 1 mg daily for 1 month then stop Labs before next visit in 3 months (2) Osteopenia after menopause: Comment: T scores 02/2023: LS -0.9, Fem neck -1.8, femur -2.1. Frax 13.1/3.9, started on Fosamax by Rheumatology March 09 Code(s): M85.80 - Other specified disorders of bone density and structure, unspecified site; Z78.0 - Asymptomatic menopausal state Category: Medical Plan: Osteopenia with high FRAX score. Continue with alendronate 70 mg weekly Plan I spent 25 minutes reviewing patient's chart, evaluating patient, ordering diagnostic workup, counseling patient and documenting in the chart Orders: Orders Complete Blood Count Auto Diff 3 Months M35.3 - Polymyalgia rheumatica C Reactive Protein 3 Months M35.3 - Polymyalgia rheumatica Erythrocyte Sedimentation Rate 3 Months M35.3 - Polymyalgia rheumatica Vitamin D 25-OH (D2 and D3) 3 Months E55.9 - Vitamin D deficiency, unspecified Comprehensive Met. Panel 3 Months M35.3 - Polymyalgia rheumatica Medications: New prednisone Take 2 tabs daily for 1 month then 1 tab daily for 1 month then stop 90 tabs 0RF Discontinued prednisone Discontinued Reason: Duplicate 2.5 mg PO DAILY 90 tabs 1RF M35.3 - Polymyalgia rheumatica Coding Level of Care Code Est Pt Level 4 (52883) Diagnoses PMR (polymyalgia rheumatica) M35.3 Osteopenia after menopause M85.80; Z78.0
[2024-02-09 13:49] VITALS: BP 124/60; PULSE 69; O2SAT 98; BMI 22.4
== END 2024-02-09 14:11 | disposition home or self-care (01) ==
PROVIDERS: PCP Internal Medicine; Visit Provider Student in an Organized Health Care Education/Training Program
DX: M35.3 Polymyalgia rheumatica (principal); M85.80 Other specified disorders of bone density and structure, unspecified site; Z78.0 Asymptomatic menopausal state
CPT/HCPCS: 99214

== ENCOUNTER → 2024-02-09 13:40 | Outpatient (BNVA) | payer MEDICARE, SELFPAY | PROVIDERS: PCP Internal Medicine; Visit Provider Student in an Organized Health Care Education/Training Program | DX: M35.3 Polymyalgia rheumatica (principal); M85.80 Other specified disorders of bone density and structure, unspecified site; Z78.0 Asymptomatic menopausal state | CPT/HCPCS: 99212 ==

== ENCOUNTER 2024-02-10 10:54 | Outpatient (AMB) | payer MEDICARE, SELFPAY ==
--- NOTE | 2024-02-10 10:58 | MHC.OFFVIS ---
Vital Signs 02/10/24 10:59 Height 5 ft 5 in Weight 134 lb BMI 22.3 BP 150/78 H Blood Pressure Location Rt brachial Position Sitting Respiration 16 Pulse 70 Pulse Source Pulse Oximeter Pulse Oximetry (%) 97 Oxygen Delivery Method Room Air Intake Visit Reasons: 6 month F/U Intake Note: Pt presents to the office for 6 month follow up for cognitive impairment. 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 Allergies peanuts Allergy (Severe, Uncoded 02/10/24 10:59) anaphylaxis Medication List - Last Reconciled 02/10/24 by Verona Lee MD alendronate 70 mg PO QWEEK amlodipine 2.5 mg PO DAILY citalopram 20 mg PO DAILY donepezil 10 mg PO DAILY empagliflozin (Jardiance) 10 mg PO DAILY fluorouracil 5% appl topical hydrocortisone 2.5% appl topical imiquimod 5% topical lisinopril 10 mg PO DAILY memantine 7 mg PO DAILY metformin ER 500 mg PO BEDTIME prednisone Take 2 tabs daily for 1 month then 1 tab daily for 1 month then stop simvastatin 10 mg PO BEDTIME HPI Comments Details: 83y/o female comes for follow up of memory problems. SHe needs reminders to eat, shower, wash her hair , medications . she is accompanied by her sister who helps with history . she feels she is worse, confused with dates.MRI is nonspecific changes Citalopram 10 mg helped mildly with anxiety.she did cognitive therapy but not following through with instructions so it is not helping History from initial visit-The memory issues became noticeable about 2 years ago and has worsened since then. It is mostly short term memory issues. she may have difficulty recalling details of events. she frequently misplaces things, forgot where she parked the car,difficulty with directions,difficulty remembering conversations,repeats questions , she needs reminders for medications etc. Her helps with finances. No changes in behavior, personality , denies hallucinations. she denies snoring or sleep issues. No h/o head injury, [facility] Medical History Anxiety Cognitive impairment, mild, so stated CKD (chronic kidney disease) stage 3, GFR 30-59 ml/min DM type 2 (diabetes mellitus, type 2) Hyperlipidemia HTN (hypertension) Squamous cell carcinoma of right lower leg Diabetes mellitus Skin growth Surgical History History of squamous cell carcinoma excision (08/13/18) History of excision of mass (02/20/15) History of hand surgery History of tonsillectomy and adenoidectomy History of excision of lesion (05/30/09) History of excision of lesion (05/03/18) Status post cataract surgery Family History Mother No problems noted. Father No problems noted. Daughter History of breast cancer Paternal Grandmother Breast cancer Social History Household Members: Family and None Housing: House Alcohol intake: current Alcohol intake frequency: a few times a week Patient Tobacco Use Status: Former Tobacco user e-Cigarette/Vaping Use: Never Used service: No Current occupational status: retired Cognitive needs: No Hearing needs: No Vision needs: Yes Physical Exam Vital Signs: Last Vital Signs Pulse 70 02/10/24 10:59 Resp 16 02/10/24 10:59 BP 150/78 H 02/10/24 10:59 Pulse Ox 97 02/10/24 10:59 Oxygen Delivery Method Room Air 02/10/24 10:59 BMI result Body Mass Index 22.3 Const General: cooperative, healthy appearing, comfortable and anxious Nutritional Appearance: average body habitus Orientation/consciousness: patient oriented x3 Limitations: no limitations Eyes Pupils: Equal, round and reactive pupils present Neuro General: patient oriented x3, gait normal, tone normal and moves all extremities Cranial nerves: Yes CN's II-XII intact bilaterally, Yes Facial sensation intact/muscles of mastication intact, Yes Equal, round and reactive pupils present, Yes Bilaterally intact EOM present, Yes Nystagmus not present, Yes Normal facial strength present, Yes Midline tongue present and Yes Symmetric palate elevation present Cognition (Neuro): normal cognition Gait exam (Neuro): Normal gait present Motor exam (neuro): 5/5 motor strength present throughout and Normal motor muscle tone present throughout Coordination: [id number] test normal and tandem gait normal Psych Affect: Anxious affect present Assessment & Plan Assessment & Plan (1) Cognitive impairment, mild, so stated: Comment: started on Donepezil Code(s): G31.84 - Mild cognitive impairment of uncertain or unknown etiology Category: Medical (2) Anxiety: Code(s): F41.9 - Anxiety disorder, unspecified Category: Medical Plan MRI brain - nonspecific Donepezil 10 mg qd Decrease citalopram 10mg qd for anxiety Cognitive therapy memantine XR 7 mg qd Medications: Changed From citalopram 20 mg PO DAILY 30 tabs 6RF To citalopram 10 mg PO DAILY 30 tabs 6RF From memantine 7 mg PO DAILY 30 ea 6RF To memantine 14 mg PO DAILY 30 ea 6RF Coding Level of Care Code Est Pt Level 4 (23088) Complex EM visit Add On G2211 Diagnoses Cognitive impairment, mild, so stated G31.84 Anxiety F41.9
[2024-02-10 10:59] VITALS: BP 150/78; PULSE 70; RESP 16; O2SAT 97; BMI 22.3
== END 2024-02-10 11:22 | disposition home or self-care (01) ==
PROVIDERS: PCP Internal Medicine; Visit Provider Psychiatry & Neurology Neurology
DX: G31.84 Mild cognitive impairment of uncertain or unknown etiology (principal); F41.9 Anxiety disorder, unspecified
CPT/HCPCS: 99214; G2211

== ENCOUNTER → 2024-02-10 10:54 | Outpatient (BNVA) | payer MEDICARE, SELFPAY | PROVIDERS: PCP Internal Medicine; Visit Provider Psychiatry & Neurology Neurology | DX: G31.84 Mild cognitive impairment of uncertain or unknown etiology (principal); F41.9 Anxiety disorder, unspecified | CPT/HCPCS: 99212 ==

== ENCOUNTER 2024-03-03 10:00 | Outpatient (RCR) | payer MEDICARE, SELFPAY ==
--- NOTE | 2023-12-08 11:14 | MHC.SL.SOA ---
Referring Provider: Verona eLe MD Reason for Referral: Assess for cognitive TX Date of Plan of Treatment:07/22/23 Onset of Symptoms/Illness:07/21/20 Date Treatment Started:07/22/23 Medical Diagnosis:Mild cognitive impairment of uncertain or unknown etiology Primary Speech Language Diagnosis:I69.911 Memory deficit Reason for Visit:Non-billable Event Subjective: Lili Pineda is an 82 year old woman who was referred to the clinic by her Neurologist, Dr. Lee, to be assessed for cognitive therapy. Her initial speech evaluation in July 2023 revealed moderate impairments in short-term memory and related problem solving skills. Between September-November, Lili has attended 9 out of 9 scheduled sessions, accompanied by her . She has made slow, but steady progress throughout our course of treatment, which is detailed below: Objective: Goal # 1 : Lili will use a rehearsal strategy to recall a detail or specific information from visual or verbal presented information with 80% accuracy IN PROGRESS: Lili utilized strategies of rehearsal and chunking to recall 3-item lists (i.e. grocery lists, to-do lists) with >90% accuracy and 4-item lists with 70% accuracy when provided with minimal to moderate assistance. Lili is sometimes observed to repeat information to herself in order to remember specific details. She reports she does this at home when she ?has to remember something [she] is told.? She is provided with verbal reminders as needed when practicing these strategies in structured activity. Goal# 2 : Lili will use a visualization strategy to recall a detail or specific information from verbally presented information with 80% accuracy. IN PROGRESS: Lili utilized the strategy of visualization/imagery to recall 4-item lists with 80% accuracy and moderate to maximal assistance. Lili was provided with consistent modeling and instruction in order to use this strategy. She reports that visualizing does not come naturally to her and that she does not use this strategy on her own because she ?is not a visual person.? Goal # 3: Lili will use an association strategy to retain and retrieve specific information from visually or verbally presented information with 80% accuracy. IN PROGRESS: Lili used association strategies to recall 4-word lists in 82% of trials with moderate assistance. Lili was provided with examples and periodic instruction in the form of leading questions in order to make associations between items in to-do lists. She reports she does not yet use this strategy on her own, but feels that it can help her to remember. Goal #4: Lili will electively use an chidi or tech device to record and retrieve needed information in four out of five contexts. IN PROGRESS: Lili uses pen and paper as external tools to facilitate her memory. She logs appointments on a calendar and writes to-do lists and notes to herself in a notepad. She has expressed that she is intimidated by technology, but would like to explore other memory tools, such as alarms and other forms of reminders. Assessment: Lili continues to present with a moderate impairment of short-term memory and processing skills, characterized by a tendency to lose track of what is being said, difficulty following more complex commands, and difficulty with word retrieval in context. The greatest area of challenge has been in immediate and delayed recall, which has been targeted throughout our course of treatment. We identified both internal and external strategies to support Lili?s short-term recall. Lili has practiced internal strategies, including verbal rehearsal, chunking, visualization, and making associations. Lili is observed to independently repeat information to herself to help her remember. She also reports that she ?tries to chunk things together in lists.? She requires more instruction and modeling to use other strategies, such as visualization (i.e. creating a single picture mentally with multiple items she has to remember) and association (i.e. associating or grouping items based on similar features, chaining lists, creating context for imagery, etc). Lili reports using external tools at home to help her remember, such as a calendar to log appointments and a notepad to write notes to herself. Lili would benefit from continued speech therapy to develop more independence in the use of these internal memory strategies and to identify other external tools, such as the use of apps or tech devices, to help retrieve needed information. Notes: Lili is recommended 8 additional, weekly 1:1 speech therapy visits to continue to following goals: Plan: Goal # : Goal # 1 : Lili will use a rehearsal strategy to recall a detail or specific information from visual or verbal presented information with 80% accuracy Status of Goal: Goal Continued Goal # : Goal# 2 : Lili will use a visualization strategy to recall a detail or specific information from verbally presented information with 80% accuracy. Status of Goal: Goal Continued Goal # : Goal # 3: Lili will use an association strategy to retain and retrieve specific information from visually or verbally presented information with 80% accuracy. Status of Goal: Goal Continued Goal # : Goal #4: Lili will electively use an chidi or tech device to record and retrieve needed information in four out of five contexts. Status of Goal: Goal Continued Seen by: Graduate/Clinical Fellow: No Supervisory Statement: f_Reg Query Last Value , [facility] Speech Language Pathologist: Tiara Levine M.A., CCC-BIAS MACHINE OPERATOR
--- NOTE | 2024-03-03 11:27 | MHC.SL.SOA ---
Referring Provider: Verona Lee MD Reason for Referral: Assess for cognitive TX Date of Plan of Treatment:07/22/23 Onset of Symptoms/Illness:07/21/20 Date Treatment Started:07/22/23 Medical Diagnosis:Mild cognitive impairment of uncertain or unknown etiology Primary Speech Language Diagnosis:I69.911 Memory deficit Number of Authorized Visits Remainin Reason for Visit:57068 Individual Treatment Subjective: Lili Pineda arrived on time for her appointment and was accompanied by her , Mr. Pineda. Lili appeared to be in positive spirits and openly shared stories about her family. She kindly expressed gratitude for the help she received through speech therapy. Objective: Goal # 1 : Lili will use a rehearsal strategy to recall a detail or specific information from visual or verbal presented information with 80% accuracy. Goal Met: Lili used a rehearsal strategy to recall information from lists (i.e. grocery lists, to-do lists) and paragraphs in 80% of trials when provided with moderate assistance. Lili says she always repeats things to [herself] to help with [her] memory. She often retained up to 4 pieces of information with 2-3 repetitions. Goal# 2 : Lili will use a visualization strategy to recall a detail or specific information from verbally presented information with 80% accuracy. Goal Discharged: Lili was provided instruction on the strategy of visualization through the use of videos and immediate modeling. Lili was successful in implementing this strategy in 75% of opportunities, but did need consistent instruction to do so. She expressed this is not a strategy she would feel inclined to use, but acknowledged how it can be useful and identified some scenarios when it can help (i.e. visualizing the different departments in a grocery store in order to remember a grocery list). Goal # 3: Lili will use an association strategy to retain and retrieve specific information from visually or verbally presented information with 80% accuracy. Goal Met: Lili used association strategies to retrieve 3-4 lists with 80% accuracy and moderate assistance. Lili practiced grouping items in grocery lists (i.e. Dairy list includes milk and sour cream, toiletries include shampoo and toothpaste) and to-do lists (i.e. Chores include washing the dishes and vacuuming, office work includes paying bills and changing appointments). Goal #4: Lili will electively use an chidi or tech device to record and retrieve needed information in four out of five contexts. Goal Discharged: Lili reported she does not often use her phone, but demonstrated how she uses a notepad and calendar to write down shorthand notes related to making appointments, verbal instructions, etc. Assessment: This is the last session remaining in Lili's authorization period. While another round of traditional treatment is not recommended at this time, as Lili has demonstrated a plateau in the progress she had been making in goals targeting internal memory strategies, we discussed the possibility of returning for 2-3 additional sessions for more functional goals and maintenance. Lili expressed, however, that she felt satisfied with what she has learned in treatment, feels that she is independent in her daily living tasks, and is comfortable with discharge at this time. Lili says she has made a habit out of writing things down and keeping calendars and notes. She says that she has been practicing the tricks for remembering that she's learned in therapy, and will hang up a cheat sheet listing these strategies on her refrigerator. Notes: Lili is discharged from outpatient speech therapy. If any future concerns arise related to her speech, language, or cognition, she is advised to contact her PCP for an updated order that will need to be faxed to our facility to re-establish services. It has been an absolute pleasure working with and Mrs. Pineda. Please do not hesitate to contact the [facility] if we can be of further assistance in her care. Plan: Goal # : Goal # 1 : Lili will use a rehearsal strategy to recall a detail or specific information from visual or verbal presented information with 80% accuracy Status of Goal: Goal Met Goal # : Goal# 2 : Lili will use a visualization strategy to recall a detail or specific information from verbally presented information with 80% accuracy. Status of Goal: Discharge Goal Goal # : Goal # 3: Lili will use an association strategy to retain and retrieve specific information from visually or verbally presented information with 80% accuracy. Status of Goal: Goal Met Goal # : Goal #4: Lili will electively use an chidi or tech device to record and retrieve needed information in four out of five contexts. Status of Goal: Discharge Goal Seen by: Graduate/Clinical Fellow: No Supervisory Statement: f_Reg Query Last Value , MHC.AU.SIGNBANNER MD [facility] Speech Language Pathologist: Tiara Levine M.A., CCC-SOLAR PROCESS ENGINEER
== END 2024-03-03 15:01 | disposition home or self-care (01) ==
LOC: HO.SH 10:00
PROVIDERS: PCP Internal Medicine; Visit Provider Psychiatry & Neurology Neurology
DX: I69.911 Memory deficit following unspecified cerebrovascular disease (principal)
CPT/HCPCS: 92507

== ENCOUNTER 2024-04-04 09:02 | Outpatient (AMB) | payer MEDICARE, SELFPAY ==
[2024-04-04 09:07] VITALS: BP 118/66; PULSE 66; O2SAT 98; BMI 22.5
--- NOTE | 2024-04-04 09:08 | AM.OFFVISMDC ---
Intake Vital Signs 04/04/24 09:07 Height 5 ft 5 in Weight 135 lb BMI 22.5 BP 118/66 Blood Pressure Location Rt brachial Position Sitting Pulse 66 Pulse Source Pulse Oximeter Pulse Oximetry (%) 98 Oxygen Delivery Method Room Air Intake Visit Reasons: SWV G0439 Allergies peanuts Allergy (Severe, Uncoded 02/10/24 10:59) anaphylaxis Medication List - Last Reconciled 04/04/24 by Elana Rubio MD alendronate 70 mg PO QWEEK amlodipine 2.5 mg PO DAILY citalopram 10 mg PO DAILY donepezil 10 mg PO DAILY empagliflozin (Jardiance) 10 mg PO DAILY fluorouracil 5% appl topical hydrocortisone 2.5% appl topical imiquimod 5% topical lisinopril 10 mg PO DAILY memantine 14 mg PO DAILY metformin ER 500 mg PO BEDTIME prednisone Take 2 tabs daily for 1 month then 1 tab daily for 1 month then stop simvastatin 10 mg PO BEDTIME HPI SWV G0439 HPI Details Initiated the conversation about Advanced Directives. Advanced Directives help? patients prepare for current and future decisions about their medical treatment? and place of care. Discussed with patient that it is a process where a patients? current condition and prognosis are reviewed, their wishes for information? regarding their illness are elicited, and likely medical dilemmas are presented? and options discussed. The form can be amended as needed, reviewed yearly and? make changes as needed IPPE/AWV ? year old presents? for her ? Annual? Wellness Visit, initial visit.? Medical / Social History Reviewed? Past Medical History ?Yes? . ? [place]? of Care / Care Team list updated ?Yes . ? Surgical/Hospitalization? History ?Yes . ? Current Medications? (including OTC and supplements) ?Yes . ? Family History ?Yes? . ? Tobacco? Control form ?Yes . ? AUDIT-C (Alcohol use) form? ?Yes . ? Illicit drug use in Social? History ?Yes . ? Current diagnosis of? depression? ?No ? Appropriate PHQ2/PHQ9? completed ?Yes . ? Data entered by ?Medical? Product Engineering Manager and reviewed by provider ? Fall Risk ? Fall? History? Have you had any falls with? injury in the past year? ?No . ? Have you had two or more? falls in the past year? ?No . ? Fall Risk Assessment: ?No? falls in the past year . ? HRA filled out by? the patient, reviewed by Provider and scanned. ? IPPE/AWV ? Balance? [place]? ?Yes . ? Tandem? walk ?Yes . ? Walk and? Turn ?Yes . ? Rise from? sit to stand ?Yes . ?Vision? Corrective? lens ?Yes ? Vision? screen ? Up-to-date, has an appointment [] for vision? screening and glaucoma screening ?Hearing? Whisper? test ?pass .? Initiated the conversation about Advanced Directives. Advanced Directives help? patients prepare for current and future decisions about their medical treatment? and place of care. Discussed with patient that it is a process where a patients? current condition and prognosis are reviewed, their wishes for information? regarding their illness are elicited, and likely medical dilemmas are presented? and options discussed. The form can be amended as needed, reviewed yearly and? make changes as needed Written? Plan?Completed. See Patient? Documents. [facility] Medical History (Updated 04/04/24 @ 12:42 by Elana Rubio MD) Annual physical exam Anxiety Cognitive impairment, mild, so stated CKD (chronic kidney disease) stage 3, GFR 30-59 ml/min DM type 2 (diabetes mellitus, type 2) Hyperlipidemia HTN (hypertension) Squamous cell carcinoma of right lower leg Diabetes mellitus Skin growth Surgical History History of squamous cell carcinoma excision (08/13/18) History of excision of mass (02/20/15) History of hand surgery History of tonsillectomy and adenoidectomy History of excision of lesion (05/30/09) History of excision of lesion (05/03/18) Status post cataract surgery Family History Mother No problems noted. Father No problems noted. Daughter History of breast cancer Paternal Grandmother Breast cancer Social History Household Members: Family and None Housing: House Alcohol intake: current Alcohol intake frequency: a few times a week Patient Tobacco Use Status: Former Tobacco user e-Cigarette/Vaping Use: Never Used service: No Current occupational status: retired Cognitive needs: No Hearing needs: No Vision needs: Yes Questionnaire Medicare Wellness Checkup What is your age?: 81 or older What gender do you identify with?: female During the past 4 weeks, how much have you been bothered by emotional problems such as feeling anxious, depressed, irritable, sad or downhearted, and blue?: not at all During the past 4 weeks, has your physical & emotional health limited your social activities with family, friends, neighbors, or groups?: not at all During the past 4 weeks, how much bodily pain have you generally had?: no pain During the past 4 weeks, was someone available to help you if you needed & wanted help?: yes, as much as I wanted During the past 4 weeks, what was the hardest physical activity you could do for at least 2 minutes?: moderate Can you get to places out of walking distance without help? (For eg., can you travel alone on buses, taxis or drive your car?): Yes Can you go shopping for groceries or clothes without someone's help?: Yes Can you prepare your own meals?: Yes Can you do your housework without help?: Yes Because of any health problems, do you need the help of another person with your personal care needs such as eating, bathing, dressing or getting around the house?: No Can you handle your own money without help?: Yes During the past 4 weeks, how would you rate your health in general?: excellent During the past 4 weeks how have things been going for you?: very well; could hardly better Are you having difficulties driving your car?: not applicable, I don't use a car Do you always fasten your seat belt when you are in a car?: yes, usually During past 4 weeks, have you been bothered by the following: never: Falling or dizzy when standing up, Sexual problems?, Trouble eating well?, Teeth or denture problems?, Problems using the telephone? and Tiredness or fatigue? Have you fallen 2 or more times in the past year?: No Are you afraid of falling?: No Are you a smoker?: no During the past 4 weeks, how many drinks of wine, beer, or other alcoholic beverages did you have?: 1 drink or less per week Do you exercise for about 20 minutes 3 or more times a week?: yes, most of the time Have you been given information to help with the following?: no: Hazards in your house that might hurt you? and no: Keeping track of your medications? How often do you have trouble taking medicines the way you have been told to take them?: I always take medicine as prescribed How confident are you that you can control & manage most of your health problems?: very confident What is your race?: White Mini Mental State Exam (MMSE) Orientation What is the (year) (season) (date) (day) (month)?: year and season Where are we (state) (county) (town or city) (hospital) (floor)?: state, county and town or city Registration Name of 3 unrelated objects clearly and slowly, then ask patient to repeat all 3 of them. (1st repeat determines score. Make sure they can repeat all three): object 1, object 2 and object 3 Attention & Calculation (CHOOSE ONE) Spell WORLD backwards (DLROW): 2 letters Recall Ask patient to repeat the 3 items from question #3.: object 1 Language Show patient a wristwatch & ask what it is. Repeat for pencil.: watch and pencil Ask the patient to repeat the phrase 'No ifs, ands, or buts' after you.: correct Ask the patient to 'take a piece of paper with their right hand' 'fold paper in half' 'place paper on floor': take paper in right hand, fold paper in half and place paper on floor Give patient a blank piece of paper & ask to write a sentence. Score if it contains a noun & verb.: sentence contains subject and verb Score Score: 18 PHQ-9 Over the last 2 weeks, how often have you been bothered by any of the following problems? 1. Little interest or pleasure in doing things: not at all 2. Feeling down, depressed, or hopeless: not at all 3. Trouble falling or staying asleep, or sleeping too much: not at all 4. Feeling tired or having little energy: not at all 5. Poor appetite or overeating: not at all 6. Feeling bad about yourself - or that you are a failure or have let yourself or your family down: not at all 7. Trouble concentrating on things, such as reading the newspaper or watching television: not at all 8. Moving or speaking so slowly that other people could have noticed. Or the opposite - being so fidgety or restless that you have been moving around a lot more than usual: not at all 9. Thoughts that you would be better off or of hurting yourself in some way: not at all Total score: 0 Depression Screening Interpretation: Negative Depression Screening Done: Yes 10976 - PHQ-9 Billing: Yes Source: Developed by Drs. Trey Dolan, Tova Pereira, Cholo Damon and colleagues, with an educational alvaro from [employer]. Review of Systems Const All systems reviewed & are unremarkable except as noted in HPI and below Eyes Reports no additional complaints ENT Reports no additional complaints Card Reports no additional complaints Resp Reports no additional complaints GI Reports no additional complaints Reports no additional complaints Physical Exam Vital Signs: Last Vital Signs Pulse 66 04/04/24 09:07 BP 118/66 04/04/24 09:07 Pulse Ox 98 04/04/24 09:07 Oxygen Delivery Method Room Air 04/04/24 09:07 BMI result Body Mass Index 22.5 Const General: no acute distress HEENT Head: Yes normal to inspection Eyes General: appearance normal, both eyes and all related structures Neck Neck: Yes no lymphadenopathy and Yes supple Resp Effort & Inspection: normal respiratory effort Auscultation: clear to auscultation bilaterally Cardio Rhythm: regular rhythm Heart sounds: S1 normal heart sound present and S2 normal heart sound present GI Inspection: Yes normal to inspection Palpation (GI): Soft to palpation Percussion: Yes normal to percussion Auscultation: normal bowel sounds Extrem General: Yes no clubbing, cyanosis or edema Assessment & Plan Assessment & Plan (1) CKD (chronic kidney disease) stage 3, GFR 30-59 ml/min: Code(s): N18.30 - Chronic kidney disease, stage 3 unspecified Plan: Avoid nephrotoxins monitor renal function (2) DM type 2 (diabetes mellitus, type 2): Code(s): E11.9 - Type 2 diabetes mellitus without complications Plan: Continue current medication ADA diet return for fasting blood work including A1c (3) Hyperlipidemia: Code(s): E78.5 - Hyperlipidemia, unspecified Plan: Continue statin (4) HTN (hypertension): Code(s): I10 - Essential (primary) hypertension Plan: Continue current medications (5) Cognitive impairment, mild, so stated: Comment: started on Donepezil and Namenda follow-up with Neurology Code(s): G31.84 - Mild cognitive impairment of uncertain or unknown etiology Plan: Follow-up with neurology (6) Osteopenia after menopause: Comment: T scores 02/2023: LS -0.9, Fem neck -1.8, femur -2.1. Frax 13.1/3.9, started on Fosamax by Rheumatology March 09 Code(s): M85.80 - Other specified disorders of bone density and structure, unspecified site; Z78.0 - Asymptomatic menopausal state Plan: Continue alendronate follow-up with Rheumatology (7) Annual physical exam: Code(s): Z00.00 - Encounter for general adult medical examination without abnormal findings Plan: Well-balanced diet regular physical activity discussed with the patient, return in 6 months with a fasting labs before Orders: Orders Vitamin D 25-OH (D2 and D3) Today E55.9 - Vitamin D deficiency, unspecified Comprehensive [place]. Panel Fast 6 Months E11.9 - Type 2 diabetes mellitus without complications, E78.5 - Hyperlipidemia, unspecified, I10 - Essential (primary) hypertension, N18.30 - Chronic kidney disease, stage 3 unspecified Complete Blood Count Auto Diff 6 Months E11.9 - Type 2 diabetes mellitus without complications, E78.5 - Hyperlipidemia, unspecified, I10 - Essential (primary) hypertension, N18.30 - Chronic kidney disease, stage 3 unspecified Lipid Panel 6 Months E11.9 - Type 2 diabetes mellitus without complications, E78.5 - Hyperlipidemia, unspecified, I10 - Essential (primary) hypertension, N18.30 - Chronic kidney disease, stage 3 unspecified Hemoglobin A1c 6 Months E11.9 - Type 2 diabetes mellitus without complications, E78.5 - Hyperlipidemia, unspecified, I10 - Essential (primary) hypertension, N18.30 - Chronic kidney disease, stage 3 unspecified Microalbumin, Random (w Creat) 6 Months E11.9 - Type 2 diabetes mellitus without complications, E78.5 - Hyperlipidemia, unspecified, I10 - Essential (primary) hypertension, N18.30 - Chronic kidney disease, stage 3 unspecified Quality Reporting (2020) Depression/Bipolar (159/160/161/177) PHQ-9: Total score: 0 Coding Level of Care Code Medicare Subsequent (G0439) Diagnoses CKD (chronic kidney disease) stage 3, GFR 30-59 ml/min N18.30 DM type 2 (diabetes mellitus, type 2) E11.9 Hyperlipidemia E78.5 HTN (hypertension) I10 Cognitive impairment, mild, so stated G31.84 Osteopenia after menopause M85.80; Z78.0 Annual physical exam Z00.00 CPT Codes Advance Care Planning - Time spent: 1-15 minutes, not on file ([id number]) Additional Codes PHQ-9 - 20879 - PHQ-9 Billing: Yes ([id number]) Advance Care Planning Advance Care Planning discussion: Exists, not on file Forms completed: Health Care Proxy Time spent: 1-15 minutes, not on file
== END 2024-04-04 09:54 | disposition home or self-care (01) ==
PROVIDERS: PCP Internal Medicine; Visit Provider Internal Medicine
DX: Z00.00 Encounter for general adult medical examination without abnormal findings (principal); I12.9 Hypertensive chronic kidney disease with stage 1 through stage 4 chronic kidney disease, or unspecified chronic kidney disease; N18.30 Chronic kidney disease, stage 3 unspecified; E11.9 Type 2 diabetes mellitus without complications; E78.5 Hyperlipidemia, unspecified; G31.84 Mild cognitive impairment of uncertain or unknown etiology; M85.80 Other specified disorders of bone density and structure, unspecified site; Z78.0 Asymptomatic menopausal state

== ENCOUNTER → 2024-04-04 09:02 | Outpatient (BNVA) | payer MEDICARE, SELFPAY | PROVIDERS: PCP Internal Medicine; Visit Provider Internal Medicine | DX: Z00.00 Encounter for general adult medical examination without abnormal findings (principal); I12.9 Hypertensive chronic kidney disease with stage 1 through stage 4 chronic kidney disease, or unspecified chronic kidney disease; E11.22 Type 2 diabetes mellitus with diabetic chronic kidney disease; N18.30 Chronic kidney disease, stage 3 unspecified; E78.5 Hyperlipidemia, unspecified; G31.84 Mild cognitive impairment of uncertain or unknown etiology; M85.80 Other specified disorders of bone density and structure, unspecified site; Z78.0 Asymptomatic menopausal state | CPT/HCPCS: 96127 ==

== ENCOUNTER 2024-04-28 09:25 | Outpatient (REF) | payer MEDICARE, SELFPAY ==
[2024-04-28 13:20] LABS: MANUAL DIFF FLAG NO
[2024-04-28 13:27] LABS: Basophils Absolute Auto 0.1 X10*3/uL (0.0-0.2); Eosinophils Absolute Auto 0.1 X10*3/uL (0.0-0.4); Eosinophils Percent Auto 1.8 % (0-4); Hematocrit 34.6 % (37.0-47.0); Hemoglobin 11.5 g/dl (12.0-16.0); Imm Gran Abs Auto 0.02 X10*3/uL (0.00-0.03); Imm Gran Pct Auto 0.4 % (0.0-0.4); Lymphocytes Absolute Auto 1.7 X10*3/uL (1.2-4.9); Lymphocytes Percent Auto 33.4 % (20-40); Mean Corpuscular HGB Conc 33.2 g/dl (31.0-35.0); Mean Corpuscular Hemoglobin 33.3 pg (27.0-33.0); Mean Corpuscular Volume 100.3 fL (80.0-98.0); Mean Platelet Volume 11.8 fL (9.4-12.3); Monocytes Absolute Auto 0.4 X10*3/uL (0.1-1.2); Monocytes Percent Auto 7.2 % (2-11); Neutrophils Absolute Auto 2.8 x10*3/uL (2.0-8.3); Neutrophils Percent Auto 56.2 % (45-73); Platelet Count 193 X10*3/uL (160-400); Red Blood Count 3.45 X10*6/uL (4.20-5.50); Red Cell Distribution Width 12.8 % (11.0-16.0)
[2024-04-28 13:55] LABS: Alanine Aminotransferase 23 U/L (0-31); Albumin Level 4.5 g/dL (3.5-5.0); Alkaline Phosphatase 49 U/L (39-117); Anion Gap 12 (12-20); Aspartate Amino Transferase 23 U/L (5-31); Bilirubin Total 0.5 mg/dL (0.0-1.0); Blood Urea Nitrogen 27 mg/dL (9-16); C Reactive Protein 0.11 mg/dL (< or = 0.50); Calcium 9.5 mg/dL (8.4-10.2); Carbon Dioxide 25 mmol/L (22-29); Chloride 103 mmol/L (96-108); Estimated Glomerular Filt Rate 26; Glucose Random 202 mg/dL (60-115); Potassium 4.8 mmol/L (3.3-5.1); Sodium 135 mmol/L (135-145); Total Protein 7.3 g/dL (6.5-8.0)
[2024-04-28 14:10] LABS: Erythrocyte Sedimentation Rate 10 MM/HR (0-20)
[2024-04-29 09:32] LABS: HBS Num1 0.22 mIU/mL (0-7.99); HBc Num1 0.26 S/CO (0.00-0.79); HBsAGNum1 0.48 S/CO (0.00-0.99); Hepatitis A Antibody IgM 0.15 Index (0-0.79); Hepatitis B Core Antibody Nonreactive (Nonreactive); Hepatitis B Surface Antigen Negative (Negative); ~HepC Num1 0.15 S/CO (0.00-0.79); ~Hepatitis A Antibody IgM Nonreactive (Nonreactive); ~Hepatitis B Surface Antibody NONREACTIVE (Nonreactive); ~Hepatitis C Antibody Nonreactive (Nonreactive)
[2024-05-01 04:59] LABS: TS Negative Control Passed; TS Panel A 1; TS Panel B 3; TS Positive Control Passed; TSpotTB Negative (Negative)
== END 2024-04-28 09:26 | disposition home or self-care (01) ==
LOC: HO.HMGCLDS 09:25
PROVIDERS: PCP Internal Medicine; Visit Provider Student in an Organized Health Care Education/Training Program
DX: M35.3 Polymyalgia rheumatica (principal); Z11.59 Encounter for screening for other viral diseases; Z11.7 Encounter for testing for latent tuberculosis infection
CPT/HCPCS: 36415; 80053; 85025; 85652; 86140; 86481; 86704; 86706; 86709; 86803; 87340

== ENCOUNTER 2024-05-24 09:41 | Outpatient (AMB) | payer MEDICARE, SELFPAY ==
--- NOTE | 2024-05-24 09:45 | MHC.OFFVIS ---
Vital Signs 05/24/24 09:50 Height 5 ft 5 in Weight 135 lb 5.821 oz BMI 22.5 BP 120/62 Blood Pressure Location Rt brachial Position Sitting Pulse 66 Pulse Source Pulse Oximeter Pulse Oximetry (%) 98 Oxygen Delivery Method Room Air Intake Visit Reasons: PMR Intake Note: P_atient presents for PMR. Allergies peanuts Allergy (Severe, Uncoded 02/10/24 10:59) anaphylaxis Medication List - Last Reconciled 05/24/24 by Rena Lopez MD amlodipine 2.5 mg PO DAILY citalopram 10 mg PO DAILY donepezil 10 mg PO DAILY empagliflozin (Jardiance) 10 mg PO DAILY fluorouracil 5% appl topical hydrocortisone 2.5% appl topical imiquimod 5% topical lisinopril 10 mg PO DAILY memantine 14 mg PO DAILY metformin ER 500 mg PO BEDTIME prednisone 1 mg PO DAILY simvastatin 10 mg PO BEDTIME HPI Comments Details: This is an 83-year-old female with PMR who presents for follow-up with her sister. Patient and her sister state that she is doing fairly well. Denies any joint pain swelling or stiffness. She was tapering prednisone slowly as prescribed, a couple of days after it was tapered off she started having significant stiffness of her neck and shoulders, she could not raise her arms above her head. We restarted prednisone at 1 mg a day and her symptoms resolved. [facility] Medical History Annual physical exam Anxiety Cognitive impairment, mild, so stated CKD (chronic kidney disease) stage 3, GFR 30-59 ml/min DM type 2 (diabetes mellitus, type 2) Hyperlipidemia HTN (hypertension) Squamous cell carcinoma of right lower leg Diabetes mellitus Skin growth Surgical History History of squamous cell carcinoma excision (08/13/18) History of excision of mass (02/20/15) History of hand surgery History of tonsillectomy and adenoidectomy History of excision of lesion (05/30/09) History of excision of lesion (05/03/18) Status post cataract surgery Family History Mother No problems noted. Father No problems noted. Daughter History of breast cancer Paternal Grandmother Breast cancer Social History Household Members: Family and None Housing: House Alcohol intake: current Alcohol intake frequency: a few times a week Patient Tobacco Use Status: Former Tobacco user e-Cigarette/Vaping Use: Never Used service: No Current occupational status: retired Cognitive needs: No Hearing needs: No Vision needs: Yes Female Reproductive History Menstrual Total pregnancies: 1 Review of Systems Musc Denies arthralgias, Denies joint swelling and Denies stiffness Physical Exam Vital Signs: Last Vital Signs Pulse 66 05/24/24 09:50 BP 120/62 05/24/24 09:50 Pulse Ox 98 05/24/24 09:50 Oxygen Delivery Method Room Air 05/24/24 09:50 BMI result Body Mass Index 22.5 Const General: cooperative, healthy appearing and comfortable Nutritional Appearance: average body habitus Orientation/consciousness: oriented to person and oriented to place Limitations: no limitations HEENT Head: Yes normocephalic and Yes atraumatic Mouth: moist mucous membranes Resp Effort & Inspection: normal respiratory effort and able to speak in complete sentences Auscultation: clear to auscultation bilaterally Cardio Rate: regular rate Skin Other: Significant dry fragile skin and superficial bruising, (senile purpura) Neuro General: oriented to person and oriented to place Extrem Other: Normal range of motion of hands, wrists, elbows and shoulders without pain No hip pain with manipulation bilaterally no trochanteric bursa area tenderness Assessment & Plan Assessment & Plan (1) PMR (polymyalgia rheumatica): Comment: on Prednisone since 12/07 Code(s): M35.3 - Polymyalgia rheumatica Category: Medical Plan: This is a 83-year-old female with PMR who presents for follow-up. A couple of days after patient discontinued prednisone she started having significant pain and stiffness of her neck and shoulders, inflammatory markers were normal, symptoms resolved on prednisone 1 mg a day. She may have had steroid withdrawal symptoms rather than an actual PMR flare I think if patient requires 1 mg daily retirement it should not have any major side effects. This is such a small dose Continue with prednisone 1 mg daily Labs before next visit in 3 months (2) Osteopenia after menopause: Comment: T scores 02/2023: LS -0.9, Fem neck -1.8, femur -2.1. Frax 13.1/3.9, started on Fosamax by Rheumatology February 2023 Code(s): M85.80 - Other specified disorders of bone density and structure, unspecified site; Z78.0 - Asymptomatic menopausal state Category: Medical Plan: Osteopenia with high FRAX score. Recent labs show declining GFR. Discontinue alendronate at this time. Advised patient to stay well hydrated, follow-up with PCP. Continue to monitor kidney function, if improved, can restart alendronate, if not improving, can consider switching to Prolia Plan I spent 25 minutes reviewing patient's chart, evaluating patient, ordering diagnostic workup, counseling patient and documenting in the chart Orders: Orders Complete Blood Count Auto Diff 3 Months M35.3 - Polymyalgia rheumatica Comprehensive Met. Panel 3 Months M35.3 - Polymyalgia rheumatica C Reactive Protein 3 Months M35.3 - Polymyalgia rheumatica Erythrocyte Sedimentation Rate 3 Months M35.3 - Polymyalgia rheumatica Medications: Refilled prednisone 1 mg PO DAILY 90 tabs 1RF Discontinued alendronate Take 1 tab once weekly, 1st thing in the morning, on an empty stomach, with a large glass of water (at least 6 oz) and stay upright for 30 minutes Discontinued Reason: Doctor's Order 70 mg PO QWEEK 12 tabs 3RF M85.80 - Other specified disorders of bone density and structure, unspecified site, Z78.0 - Asymptomatic menopausal state Coding Level of Care Code Est Pt Level 4 (55303) Diagnoses PMR (polymyalgia rheumatica) M35.3 Osteopenia after menopause M85.80; Z78.0
[2024-05-24 09:50] VITALS: BP 120/62; PULSE 66; O2SAT 98; BMI 22.5
== END 2024-05-24 10:09 | disposition home or self-care (01) ==
PROVIDERS: PCP Internal Medicine; Visit Provider Student in an Organized Health Care Education/Training Program
DX: M35.3 Polymyalgia rheumatica (principal); M85.80 Other specified disorders of bone density and structure, unspecified site; Z78.0 Asymptomatic menopausal state
CPT/HCPCS: 99214

== ENCOUNTER → 2024-05-24 09:41 | Outpatient (BNVA) | payer MEDICARE, SELFPAY | PROVIDERS: PCP Internal Medicine; Visit Provider Student in an Organized Health Care Education/Training Program | DX: M35.3 Polymyalgia rheumatica (principal); M85.80 Other specified disorders of bone density and structure, unspecified site; Z78.0 Asymptomatic menopausal state | CPT/HCPCS: 99212 ==

== ENCOUNTER 2024-08-31 13:20 | Outpatient (AMB) | payer MEDICARE, SELFPAY ==
[2024-08-31 13:23] VITALS: BP 122/60; PULSE 69; O2SAT 97; BMI 21.8
--- NOTE | 2024-08-31 13:23 | A.OFFVIS_ITS ---
Vital Signs 08/31/24 13:23 Height 5 ft 5 in Weight 131 lb 4 oz BMI 21.8 BP 122/60 Blood Pressure Location Rt brachial Position Sitting Pulse 69 Pulse Source Pulse Oximeter Pulse Oximetry (%) 97 Oxygen Delivery Method Room Air Intake Visit Reasons: 6 month F/U-LVM Intake Note: patient following up Cognitive impairment Med change Allergies peanuts Allergy (Severe, Uncoded 08/31/24 13:26) anaphylaxis Medication List - Last Reconciled 08/31/24 by Verona Lee MD amlodipine 2.5 mg PO DAILY citalopram 10 mg PO DAILY donepezil 10 mg PO DAILY empagliflozin (Jardiance) 10 mg PO DAILY fluorouracil 5% appl topical hydrocortisone 2.5% appl topical imiquimod 5% topical lisinopril 10 mg PO DAILY memantine 14 mg PO DAILY MDD 14mg metformin ER 500 mg PO BEDTIME prednisone 1 mg PO DAILY simvastatin 10 mg PO BEDTIME HPI Comments Details: 83y/o female comes for follow up of memory problems..SHe needs reminders to eat, shower, wash her hair , medications . she is accompanied by her sister who helps with history . she feels she is worse, confused with dates.MRI is nonspecific changes Citalopram 10 mg helped mildly with anxiety History from initial visit-The memory issues became noticeable about 2 years ago and has worsened since then. It is mostly short term memory issues. she may have difficulty recalling details of events. she frequently misplaces things, forgot where she parked the car,difficulty with directions,difficulty remembering conversations,repeats questions , she needs reminders for medications etc. Her helps with finances. No changes in behavior, personality , denies hallucinations. she denies snoring or sleep issues. No h/o head injury, [facility] Medical History Annual physical exam Anxiety Cognitive impairment, mild, so stated CKD (chronic kidney disease) stage 3, GFR 30-59 ml/min DM type 2 (diabetes mellitus, type 2) Hyperlipidemia HTN (hypertension) Squamous cell carcinoma of right lower leg Diabetes mellitus Skin growth Surgical History History of squamous cell carcinoma excision (08/13/18) History of excision of mass (10/06/15) History of hand surgery History of tonsillectomy and adenoidectomy History of excision of lesion (05/30/09) History of excision of lesion (05/03/18) Status post cataract surgery Family History Mother No problems noted. Father No problems noted. Daughter History of breast cancer Paternal Grandmother Breast cancer Social History Household Members: Family and None Housing: House Alcohol intake: current Alcohol intake frequency: a few times a week Patient Tobacco Use Status: Former Tobacco user e-Cigarette/Vaping Use: Never Used service: No Current occupational status: retired Cognitive needs: No Hearing needs: No Vision needs: Yes Physical Exam Vital Signs: Last Vital Signs Pulse 69 08/31/24 13:23 BP 122/60 08/31/24 13:23 Pulse Ox 97 08/31/24 13:23 Oxygen Delivery Method Room Air 08/31/24 13:23 BMI result Body Mass Index 21.8 Const General: cooperative, healthy appearing, comfortable and anxious Nutritional Appearance: average body habitus Orientation/consciousness: patient oriented x3 Limitations: no limitations Eyes Pupils: Equal, round and reactive pupils present Neuro General: patient oriented x3, gait normal, tone normal and moves all extremities Cranial nerves: Yes CN's II-XII intact bilaterally, Yes Facial sensation intact/muscles of mastication intact, Yes Equal, round and reactive pupils present, Yes Bilaterally intact EOM present, Yes Nystagmus not present, Yes Normal facial strength present, Yes Midline tongue present and Yes Symmetric palate elevation present Cognition (Neuro): normal cognition Gait exam (Neuro): Normal gait present Motor exam (neuro): 5/5 motor strength present throughout and Normal motor muscle tone present throughout Coordination: [id number] test normal and tandem gait normal Psych Affect: Anxious affect present Orientation What is the (year) (season) (date) (day) (month)?: season and day Where are we (state) (county) (town or city) (hospital) (floor)?: state, town or city and hospital/clinic Registration Name of 3 unrelated objects clearly and slowly, then ask patient to repeat all 3 of them. (1st repeat determines score. Make sure they can repeat all three): object 1, object 2 and object 3 Attention & Calculation (CHOOSE ONE) Spell WORLD backwards (DLROW): 5 letters Recall Ask patient to repeat the 3 items from question #3.: object 2 Language Show patient a wristwatch & ask what it is. Repeat for pencil.: watch and pencil Ask the patient to repeat the phrase 'No ifs, ands, or buts' after you.: correct Ask the patient to 'take a piece of paper with their right hand' 'fold paper in half' 'place paper on floor': take paper in right hand, fold paper in half and place paper on floor Print the sentence 'CLOSE YOUR EYES' on a piece. If patient actually closes eyes then score.: followed written direction Give patient a blank piece of paper & ask to write a sentence. Score if it contains a noun & verb.: sentence contains subject and verb Score Score: 22 Assessment & Plan Assessment & Plan (1) Cognitive impairment, mild, so stated: Code(s): G31.84 - Mild cognitive impairment of uncertain or unknown etiology Category: Medical (2) Anxiety: Code(s): F41.9 - Anxiety disorder, unspecified Category: Medical Plan MRI brain - nonspecific Donepezil 10 mg qd Increase citalopram 20mg qd for anxiety Cognitive therapy memantine XR 14 mg qd she can be a candidate for anti amyloid therapy -i will do a AMyloid PET to confirm changes Orders: Orders PET Brain beta amyloid Today G31.84 - Mild cognitive impairment of uncertain or unknown etiology Medications: Changed From citalopram 10 mg PO DAILY 30 tabs 6RF To citalopram 20 mg PO DAILY 30 tabs 6RF Coding Level of Care Code Est Pt Level 4 (74266) Complex EM visit Add On G2211 Diagnoses Cognitive impairment, mild, so stated G31.84 Anxiety F41.9
== END 2024-08-31 13:52 | disposition home or self-care (01) ==
LOC: HO.HSMS 13:21
PROVIDERS: PCP Internal Medicine; Visit Provider Psychiatry & Neurology Neurology
DX: G31.84 Mild cognitive impairment of uncertain or unknown etiology (principal); F41.9 Anxiety disorder, unspecified
CPT/HCPCS: 99214; G2211

== ENCOUNTER → 2024-08-31 13:20 | Outpatient (BNVA) | payer MEDICARE, SELFPAY | PROVIDERS: PCP Internal Medicine; Visit Provider Psychiatry & Neurology Neurology | DX: G31.84 Mild cognitive impairment of uncertain or unknown etiology (principal); F41.9 Anxiety disorder, unspecified | CPT/HCPCS: 99212 ==

== ENCOUNTER 2024-09-05 10:48 | Outpatient (REF) | payer MEDICARE, SELFPAY ==
[2024-09-05 13:10] LABS: MANUAL DIFF FLAG NO
[2024-09-05 13:16] LABS: Basophils Absolute Auto 0.1 X10*3/uL (0.0-0.2); Basophils Percent Auto 1.1 % (0-2); Eosinophils Absolute Auto 0.1 X10*3/uL (0.0-0.4); Eosinophils Percent Auto 1.7 % (0-4); Hematocrit 34.2 % (37.0-47.0); Hemoglobin 11.5 g/dl (12.0-16.0); Imm Gran Abs Auto 0.01 X10*3/uL (0.00-0.03); Imm Gran Pct Auto 0.2 % (0.0-0.4); Lymphocytes Absolute Auto 1.5 X10*3/uL (1.2-4.9); Lymphocytes Percent Auto 31.8 % (20-40); Mean Corpuscular HGB Conc 33.6 g/dl (31.0-35.0); Mean Corpuscular Hemoglobin 33.5 pg (27.0-33.0); Mean Corpuscular Volume 99.7 fL (80.0-98.0); Mean Platelet Volume 12.1 fL (9.4-12.3); Monocytes Absolute Auto 0.3 X10*3/uL (0.1-1.2); Monocytes Percent Auto 7.2 % (2-11); Neutrophils Absolute Auto 2.7 x10*3/uL (2.0-8.3); Platelet Count 179 X10*3/uL (160-400); Red Blood Count 3.43 X10*6/uL (4.20-5.50); Red Cell Distribution Width 12.6 % (11.0-16.0); White Blood Count 4.7 X10*3/uL (4.8-10.8)
[2024-09-05 13:24] LABS: Estimated Average Glucose 148 mg/dL; Hemoglobin A1C 154.0585 umol/L; Hemoglobin A1c % 6.8 % (<6.0); Total Hemoglobin (HGBA1C) 3029.0411 umol/L
[2024-09-05 13:33] LABS: Alanine Aminotransferase 17 U/L (0-31); Albumin Level 4.3 g/dL (3.5-5.0); Alkaline Phosphatase 54 U/L (39-117); Anion Gap 15 (12-20); Aspartate Amino Transferase 21 U/L (5-31); Bilirubin Total 0.5 mg/dL (0.0-1.0); Blood Urea Nitrogen 24 mg/dL (9-16); Calcium 9.3 mg/dL (8.4-10.2); Carbon Dioxide 23 mmol/L (22-29); Chloride 99 mmol/L (96-108); Cholesterol 179 mg/dL (<200); Estimated Glomerular Filt Rate 29; Glucose Fasting 365 mg/dL (60-99); HDL Cholesterol 89 mg/dL (>40); LDL Cholesterol Calculated 66 mg/dL (<100); Potassium 4.9 mmol/L (3.3-5.1); Sodium 132 mmol/L (135-145); Total Protein 6.8 g/dL (6.5-8.0); Triglycerides 121 mg/dL (<150)
[2024-09-05 14:10] LABS: Creatinine Urine 64.05 mg/dL; Microalbum/Creatinine Ratio Ur 148.3 ug/mg cr (<30)
== END 2024-09-05 10:49 | disposition home or self-care (01) ==
LOC: HO.HMGCLDS 10:48
PROVIDERS: PCP Internal Medicine; Visit Provider Student in an Organized Health Care Education/Training Program
DX: N18.30 Chronic kidney disease, stage 3 unspecified (principal); E11.9 Type 2 diabetes mellitus without complications; E78.5 Hyperlipidemia, unspecified; I10 Essential (primary) hypertension
CPT/HCPCS: 36415; 80053; 80061; 82043; 82570; 83036; 85025

== ENCOUNTER 2024-09-07 13:31 | Outpatient (AMB) | payer MEDICARE, SELFPAY ==
[2024-09-07 13:36] VITALS: BP 118/60; PULSE 65; O2SAT 99; BMI 21.4
--- NOTE | 2024-09-07 13:36 | A.OFFVIS_ITS ---
Vital Signs 09/07/24 13:36 Height 5 ft 5 in Weight 128 lb 11.999 oz BMI 21.4 BP 118/60 Blood Pressure Location Lt brachial Position Sitting Pulse 65 Pulse Source Pulse Oximeter Pulse Oximetry (%) 99 Oxygen Delivery Method Room Air Intake Visit Reasons: PMR Intake Note: Patient presents for follow up on PMR and lab review, She was last seen by Dr. Lopez on 05/24/24. Allergies peanuts Allergy (Severe, Uncoded 09/07/24 13:39) anaphylaxis Medication List - Last Reconciled 09/07/24 by Tatyana Booker MD amlodipine 2.5 mg PO DAILY citalopram 20 mg PO DAILY donepezil 10 mg PO DAILY empagliflozin (Jardiance) 10 mg PO DAILY fluorouracil 5% appl topical hydrocortisone 2.5% appl topical imiquimod 5% topical lisinopril 10 mg PO DAILY memantine 14 mg PO DAILY MDD 14mg metformin ER 500 mg PO BEDTIME prednisone 1 mg PO DAILY simvastatin 10 mg PO BEDTIME HPI Comments Details: Patient is an 83-year-old female with hypertension, diabetes, hyperlipidemia, and PMR here today for follow up Interval History: Patient last seen 05/24/[address] Lopez. At that time she was tapering her prednisone and notice that after she completed the taper she had return of stiffness in her neck and shoulders at able to raise her arms above her head. Prednisone 1 mg was restarted and her symptoms improved. Because of her comorbidities and her age Dr. Lopez decided that she should remain on prednisone 1 mg daily half-way. Alendronate was stopped due to worsening kidney function Today, Patient reports she is doing well No falls or fractures No return of symptoms on the prednisone 1mg Rheumatologic History: PMR diagnosed on inflammatory markers and stiffness involving the shoulders The prednisone started 01/2023 Attempted to taper prednisone off 01/2024 with return of symptoms Because of co- morbidities and age patient kept on 1mg daily Initial history with Dr. Nice: The patient presents with her sister for evaluating what is thought to be PMR. The history is mostly through the sister since the patient has significant memory lapses. Apparently in late September and early October patient developed an illness that almost totally disabled her. She was feeling stiffness and pain in her shoulders and upper arms. This also involved the lateral hip and anterior thigh regions. She had trouble getting out of bed. She eventually did see her doctor who noted elevated sed rate and in November she was started on prednisone 20 mg daily. Within days she felt much better. She feels like she is back to normal at presentwith some slight left lateral hip pain that she has had before. She does not recall any headache, jaw claudication or visual disturbance. She does not really have a history in the past that she can recall of arthritic problems. Apparently around the time of her illness there was concern that her medications could be causing the problem. The metformin and her statin were discontinued. She does not recall any blood work since being on the prednisone. Current Rheumatology Medication(s): Prednisone 1mg daily [facility] Medical History Annual physical exam Anxiety Cognitive impairment, mild, so stated CKD (chronic kidney disease) stage 3, GFR 30-59 ml/min DM type 2 (diabetes mellitus, type 2) Hyperlipidemia HTN (hypertension) Squamous cell carcinoma of right lower leg Diabetes mellitus Skin growth Surgical History History of squamous cell carcinoma excision (08/13/18) History of excision of mass (02/20/15) History of hand surgery History of tonsillectomy and adenoidectomy History of excision of lesion (05/30/09) History of excision of lesion (05/03/18) Status post cataract surgery Family History Mother No problems noted. Father No problems noted. Daughter History of breast cancer Paternal Grandmother Breast cancer Social History Household Members: Family and None Housing: House Alcohol intake: current Alcohol intake frequency: a few times a week Patient Tobacco Use Status: Former Tobacco user e-Cigarette/Vaping Use: Never Used service: No Current occupational status: retired Cognitive needs: No Hearing needs: No Vision needs: Yes Review of Systems Const Details: Review of Systems Constitutional: Denies fever, chills, weight loss ENT: Denies vision changes, eye pain or eye redness, dental caries, dry mouth GI: Denies nausea, vomiting, diarrhea, abdominal pain, change in BM Pulm: Denies SOB, IQBAL, hemoptysis, wheezing Cards: Denies chest pain, palpitations Skin: Denies Raynaud's, rash, nail changes, photosensitivity, [employer]: Denies headaches, weakness, paresthesias, recurrent falls MSK: as per HPI All other systems reviewed and are unremarkable except noted above Physical Exam Vital Signs: BMI result Body Mass Index 21.4 Vital signs reviewed Physical Examination CONSTITUITIONAL Patient alert and cooperative. Well appearing and in no apparent painful distress HEENT Conjunctiva and sclera clear. ?Pupils equal round and reactive to light. ?No lymphadenopathy. ? CHEST/RESPIRATORY SYSTEM Normal respiratory effort and able to speak in complete sentences. ?Clear to auscultation bilaterally. ?No crackles, rales, rhonchi, wheezes heard. CARDIAC SYSTEM Regular rate and rhythm. ?S1 and S2 heard no murmurs. ?Radial pulses intact bilaterally MSK Hands: ?Able to make a fist. No synovitis noted to the MCPs, PIPs or DIPs. ?No tenderness to palpation of these joints. [place]berden nodes and Karol's nodes noted Wrists: ?Full range of motion at the wrists without pain. ?No tenderness to palpation or synovitis noted to the wrists. Elbows: Full range of motion without pain. No tenderness, weakness, swelling, increased warmth or erythema. Shoulders: Full range of active range of motion without pain. No tenderness, weakness, swelling, increased warmth or erythema. Knees: ?Full range of motion. ?No tenderness, swelling, increased warmth or erythema.? Bilateral crepitations felt Ankles: Full range of motion. ?No tenderness, swelling, increased warmth or erythema.? Feet: ?Negative squeeze test. ?No tenderness to palpation or swelling of the MTPs. Tender points:?No tenderness to palpation of the bilateral trapezius, supraspinatus, greater trochanters, anterior costochondral junctions, bilateral gluteal areas, bilateral suboccipital muscle insertions SKIN Skin intact without rashes. Scattered seborrheic keratoses noted Results Reviewed Results Reviewed: Laboratory Tests 04/28/24 04/28/24 09/05/24 01:24 10:24 10:58 WBC 4.7 L RBC 3.43 L Hgb 11.5 L Hct 34.2 L Plt Count 179 ESR 10 Sodium 132 L Potassium 4.9 Chloride 99 Carbon Dioxide 23 BUN 24 H Creatinine 1.71 H Estimated GFR 29 AST 21 ALT 17 Alkaline Phosphatase 54 C-Reactive Protein 0.11 Laboratory Tests 02/12/23 11:30 25-OH Vitamin D Total 47 DEXA 02/2023 FINDINGS: LEFT FEMUR, NECK: BMD 0.786 g/cm2, Z-score 0.6, T-score -1.8, osteopenia. LEFT FEMUR, TOTAL: BMD 0.744 g/cm2, Z-score 0.2, T-score -2.1, osteopenia. AP SPINE L1-L2 (excluding L3 and L4): The data of L1-L4 has been changed to exclude the L3 and L4 vertebral bodies, because degenerative sclerosis at these levels may cause overestimation of lumbar spine density. BMD 1.052 g/cm2, Z-score 1.2, T-score -0.9, normal. Assessment & Plan Assessment & Plan (1) PMR (polymyalgia rheumatica): Comment: on Prednisone since 12/07 Unable to wean 05/2024. Kept on low dose prednisone 1mg Code(s): M35.3 - Polymyalgia rheumatica Category: Medical Plan: #PMR Patient is a an 83-year-old female with PMR here today for follow up. Currently in remission on 1 mg prednisone Plan - Prednisone 1mg daily - RTC 6 months - Labs before follow up: CBC, CMP, ESR, CRP (2) Osteopenia after menopause: Comment: T scores 02/2023: LS -0.9, Fem neck -1.8, femur -2.1. Frax 13.1/3.9, started on Fosamax by Rheumatology February 2023 Code(s): M85.80 - Other specified disorders of bone density and structure, unspecified site; Z78.0 - Asymptomatic menopausal state Category: Medical Plan: #Osteopenia with elevated FRAX Patient with osteopenia and elevated FRAX. Alendronate discontinued due to worsening kidney function. Repeat kidney function shows not much improvement. Given her low GFR it is best switch to Prolia Plan - Start prolia 60mg SC every 6 months - DEXA 02/2025 - Vitamin D at next blood draw - Vitamin D 2000U daily (3) Long-term corticosteroid use: Code(s): Z79.52 - [facility] (current) use of systemic steroids Category: Medical Plan: #Long-term Use of Steroids Discussed with patient the risks and benefits of steroid for managing the rheumatic condition Benefits include: - Reduced pain, improved mobility, increased participation in activities, and decreased progression of disease Risks include: - GI upset, potential ultrasound worsening or formation (especially in patients > 65 years old), elevated blood pressure/worsening hypertension, elevated blood sugar/worsening diabetes control, worsening of bone density, elevated lipids/worsening triglycerides, cataract formation, weight gain Recommended using proton pump inhibitors (PPIs) for the duration of steroid use to reduce the risk of gastric ulcers and vitamin-D daily to reduce the risk of osteoporosis Labs checked: ?A1c, T spot, hepatitis-B and C serologies Pneumocystis jiroveci prophylaxis: ?Patient with risk factors including steroids greater than 50 mg for more than 30 days, age greater than 60 years, and lung involvement from underlying rheumatic disease requires prophylaxis and will be given so (4) Encounter for monitoring denosumab therapy: Code(s): Z51.81 - Encounter for therapeutic drug level monitoring; Z79.620 - [facility] (current) use of immunosuppressive biologic Plan: #Long-term use of Denosumab Discussed with patient the risks and benefits of denosumab (Prolia) for the management of their osteoporosis Benefits include improved bone density, decreased fracture risk Risks include rapid bone loss if denosumab stopped, osteonecrosis of the jaw especially in patients with poor oral hygiene/diabetes/use of glucocorticoids/age greater than 65 years, atypical femoral fractures, injection site reactions. Mild increased risk of infections due to RANKL on T helper cells, increased risk of hypocalcemia especially in CKD patients Keep vitamin-D at least 35 ng/mL Advised to delay non emergent dental procedures to toward the end of the 6 month cycle and if they plan to stop denosumab would need to continue antiresorptive to maintain the effects of denosumabe Plan I spent 30 minutes reviewing the record and labs, taking a history, examining the patient, discussing the treatment plan, ordering diagnostic work up and documenting in the medical record Orders: Orders Complete Blood Count Auto Diff 6 Months E55.9 - Vitamin D deficiency, unspecified, M35.3 - Polymyalgia rheumatica Comprehensive Met. Panel 6 Months E55.9 - Vitamin D deficiency, unspecified, M35.3 - Polymyalgia rheumatica Vitamin D 25-OH (D2 and D3) 6 Months E55.9 - Vitamin D deficiency, unspecified, M35.3 - Polymyalgia rheumatica C Reactive Protein 6 Months E55.9 - Vitamin D deficiency, unspecified, M35.3 - Polymyalgia rheumatica Erythrocyte Sedimentation Rate 6 Months E55.9 - Vitamin D deficiency, unspecified, M35.3 - Polymyalgia rheumatica XR DEXA axial skeleton 6 Months M81.0 - Age-related osteoporosis without current pathological fracture Medications: New cholecalciferol (vitamin D3) 50 mcg PO DAILY 90 caps 1RF E55.9 - Vitamin D deficiency, unspecified Refilled prednisone 1 mg PO DAILY 90 tabs 1RF Coding Level of Care Code Est Pt Level 4 (13268) Complex EM visit Add On G2211 Diagnoses PMR (polymyalgia rheumatica) M35.3 Osteopenia after menopause M85.80; Z78.0 Long-term corticosteroid use Z79.52 Encounter for monitoring denosumab therapy Z51.81; Z79.620
== END 2024-09-07 13:58 | disposition home or self-care (01) ==
LOC: HO.RHE 13:31
PROVIDERS: PCP Internal Medicine; Visit Provider Student in an Organized Health Care Education/Training Program
DX: M35.3 Polymyalgia rheumatica (principal); M85.80 Other specified disorders of bone density and structure, unspecified site; Z78.0 Asymptomatic menopausal state; Z79.52 Long term (current) use of systemic steroids; Z51.81 Encounter for therapeutic drug level monitoring; Z79.620 Long term (current) use of immunosuppressive biologic
CPT/HCPCS: 99214; G2211

== ENCOUNTER → 2024-09-07 13:31 | Outpatient (BNVA) | payer MEDICARE, SELFPAY | PROVIDERS: PCP Internal Medicine; Visit Provider Student in an Organized Health Care Education/Training Program | DX: M35.3 Polymyalgia rheumatica (principal); M85.80 Other specified disorders of bone density and structure, unspecified site; E55.9 Vitamin D deficiency, unspecified; Z78.0 Asymptomatic menopausal state; Z79.52 Long term (current) use of systemic steroids; Z51.81 Encounter for therapeutic drug level monitoring; Z79.620 Long term (current) use of immunosuppressive biologic | CPT/HCPCS: 99212 ==

== ENCOUNTER 2024-09-14 13:57 | Outpatient (AMB) | payer MEDICARE, SELFPAY ==
--- NOTE | 2024-09-14 14:30 | AM.OFFVISNUR ---
Intake Visit Reasons: prolia injection Allergies peanuts Allergy (Severe, Uncoded 09/07/24 13:39) anaphylaxis Office Meds Prolia 60 mg/mL subcutaneous syringe Performing Provider: Tatyana Booker MD Performing Location: [facility] [place] Endocrinology Administered by: Katherine Leal RN on 09/14/24 14:30 Dose Route Admin Location Dispensed Lot Number Expiration Date NDC [employer] 60 mg subcut left upper arm 1 mL [id number] 12/15/26 [id number] [facility] Comments: Patient tolerated injection well. Reports no adverse reactions to prior injections. Consent signed prior to injection. Assessment & Plan Assessment & Plan Orders: Orders AMB Denosumab Injection Practice Supplied Today M19.012 - Primary osteoarthritis, left shoulder Medications: New Prolia (denosumab) 60 mg subcut ONCE 1 mL 0RF NS M19.012 - Primary osteoarthritis, left shoulder Coding
== END 2024-09-14 14:32 | disposition home or self-care (01) ==
LOC: HO.RHE 13:57
PROVIDERS: PCP Internal Medicine; Visit Provider Student in an Organized Health Care Education/Training Program
DX: M19.012 Primary osteoarthritis, left shoulder (principal)

== ENCOUNTER → 2024-09-14 13:57 | Outpatient (BNVA) | payer MEDICARE, SELFPAY | PROVIDERS: PCP Internal Medicine; Visit Provider Student in an Organized Health Care Education/Training Program | DX: M19.012 Primary osteoarthritis, left shoulder (principal) | CPT/HCPCS: 96372; J0897 ==

== ENCOUNTER 2024-09-23 11:32 | Outpatient (REF) | payer MEDICARE, SELFPAY ==
[2024-09-23 14:26] LABS: TSH reflex Free T4 1.09 uIU/mL (0.32-4.0)
[2024-09-23 15:07] LABS: Folate 11.7 ng/mL (> or = 4.0); Vitamin B12 500 pg/mL (200-900)
== END 2024-09-23 11:33 | disposition home or self-care (01) ==
LOC: HO.HMGCLDS 11:32
PROVIDERS: Psychiatry & Neurology Neurology; PCP Internal Medicine; Visit Provider Internal Medicine Hypertension Specialist
DX: G31.84 Mild cognitive impairment of uncertain or unknown etiology (principal)
CPT/HCPCS: 36415; 82607; 82746; 84443

== ENCOUNTER 2024-09-30 09:01 | Outpatient (REF) | payer MEDICARE, SELFPAY ==
[2024-09-30 10:17] LABS: MANUAL DIFF FLAG NO
[2024-09-30 10:25] LABS: Basophils Absolute Auto 0.1 X10*3/uL (0.0-0.2); Basophils Percent Auto 0.9 % (0-2); Eosinophils Absolute Auto 0.1 X10*3/uL (0.0-0.4); Eosinophils Percent Auto 1.7 % (0-4); Hematocrit 33.9 % (37.0-47.0); Hemoglobin 11.5 g/dl (12.0-16.0); Imm Gran Abs Auto 0.02 X10*3/uL (0.00-0.03); Imm Gran Pct Auto 0.3 % (0.0-0.4); Lymphocytes Absolute Auto 2.2 X10*3/uL (1.2-4.9); Lymphocytes Percent Auto 37.3 % (20-40); Mean Corpuscular HGB Conc 33.9 g/dl (31.0-35.0); Mean Corpuscular Volume 100.3 fL (80.0-98.0); Monocytes Absolute Auto 0.4 X10*3/uL (0.1-1.2); Monocytes Percent Auto 6.9 % (2-11); Neutrophils Absolute Auto 3.1 x10*3/uL (2.0-8.3); Neutrophils Percent Auto 52.9 % (45-73); Platelet Count 168 X10*3/uL (160-400); Red Blood Count 3.38 X10*6/uL (4.20-5.50); Red Cell Distribution Width 12.9 % (11.0-16.0); White Blood Count 5.8 X10*3/uL (4.8-10.8)
[2024-09-30 10:44] LABS: Estimated Average Glucose 154 mg/dL; Hemoglobin A1C 163.2921 umol/L; Total Hemoglobin (HGBA1C) 3076.9532 umol/L
[2024-09-30 11:45] LABS: Alanine Aminotransferase 21 U/L (0-31); Albumin Level 4.5 g/dL (3.5-5.0); Alkaline Phosphatase 50 U/L (39-117); Anion Gap 15 (12-20); Aspartate Amino Transferase 24 U/L (5-31); Bilirubin Total 0.8 mg/dL (0.0-1.0); Blood Urea Nitrogen 24 mg/dL (9-16); Calcium 8.6 mg/dL (8.4-10.2); Carbon Dioxide 22 mmol/L (22-29); Chloride 104 mmol/L (96-108); Cholesterol 192 mg/dL (<200); Estimated Glomerular Filt Rate 37; Folate 12.9 ng/mL (> or = 4.0); Glucose Fasting 173 mg/dL (60-99); HDL Cholesterol 98 mg/dL (>40); Iron 115 mcg/dL (30-160); LDL Cholesterol Calculated 73 mg/dL (<100); Percent Iron Saturation 45 % (15-50); Potassium 4.5 mmol/L (3.3-5.1); Sodium 136 mmol/L (135-145); Total Iron Binding Capacity 256 mcg/dL (228-428); Total Protein 7.1 g/dL (6.5-8.0); Triglycerides 109 mg/dL (<150); Unsaturated Iron Binding 141 ug/dL; Vitamin B12 457 pg/mL (200-900)
[2024-10-05 13:19] LABS: Vitamin D 25-OH, D2 <4 ng/mL; Vitamin D 25-OH, D3 45 ng/mL; Vitamin D 25-OH, Total 45 ng/mL (30-100)
== END 2024-09-30 09:02 | disposition home or self-care (01) ==
LOC: HO.HMGCLDS 09:01
PROVIDERS: PCP Internal Medicine; Visit Provider Internal Medicine
DX: E11.22 Type 2 diabetes mellitus with diabetic chronic kidney disease (principal); D63.1 Anemia in chronic kidney disease; E55.9 Vitamin D deficiency, unspecified; N18.30 Chronic kidney disease, stage 3 unspecified
CPT/HCPCS: 36415; 80053; 80061; 82306; 82607; 82746; 83036; 83540; 85025

== ENCOUNTER 2024-10-03 09:19 | Outpatient (AMB) | payer MEDICARE, SELFPAY ==
[2024-10-03 09:32] VITALS: BP 122/62; PULSE 78; RESP 18; TEMP 36.7; O2SAT 95; BMI 21.6
--- NOTE | 2024-10-03 09:32 | MHC.PC.OV ---
Vital Signs 10/03/24 09:32 Height 5 ft 5 in Weight 130 lb BMI 21.6 BP 122/62 Blood Pressure Location Lt brachial Position Sitting Respiration 18 Pulse 78 Pulse Source Pulse Oximeter Temp 98.0 F Temp Source Oral Pulse Oximetry (%) 95 Oxygen Delivery Method Room Air Intake Visit Reasons: 6 months follow up Intake Note: Pt is here today for 6 months follow up visit. Allergies peanuts Allergy (Severe, Uncoded 10/03/24 09:32) anaphylaxis Medication List - Last Reconciled 10/03/24 by Elana Rubio MD amlodipine 2.5 mg PO DAILY cholecalciferol (vitamin D3) 50 mcg PO DAILY citalopram 20 mg PO DAILY donepezil 10 mg PO DAILY empagliflozin (Jardiance) 10 mg PO DAILY fluorouracil 5% appl topical hydrocortisone 2.5% appl topical imiquimod 5% topical lisinopril 10 mg PO DAILY memantine 14 mg PO DAILY MDD 14mg metformin ER 500 mg PO BEDTIME prednisone 1 mg PO DAILY simvastatin 10 mg PO BEDTIME Tobacco use date assessed: 10/03/24 Fall risk assessment: No Falls in past year Last assessed Fall Risk: 10/03/24 Dental Screening Dental Screen Date: 10/03/24 Did you have a dental visit in the last 12 months?: Yes Did you have a dental problem in the last 6 months where you did not have access to dental care?: No Was dental information given to patient?: Patient has dentist HPI 6 months follow up HPI Details Patient presents for the follow-up on hypertension chronic kidney disease stage 3 hyperlipidemia type 2 diabetes. She is established with neurologist for mild cognitive impairment and anxiety. Patient has been feeling better walking daily for at least 30 minutes. She is established with title i paraprofessional for PMR on the 1 mg of prednisone maintenance dose. [facility] Medical History Annual physical exam Anxiety Cognitive impairment, mild, so stated CKD (chronic kidney disease) stage 3, GFR 30-59 ml/min DM type 2 (diabetes mellitus, type 2) Hyperlipidemia HTN (hypertension) Squamous cell carcinoma of right lower leg Diabetes mellitus Skin growth Surgical History History of squamous cell carcinoma excision (08/13/18) History of excision of mass (02/20/15) History of hand surgery History of tonsillectomy and adenoidectomy History of excision of lesion (05/30/09) History of excision of lesion (05/03/18) Status post cataract surgery Family History Mother No problems noted. Father No problems noted. Daughter History of breast cancer Paternal Grandmother Breast cancer Social History Household Members: Family and None Housing: House Alcohol intake: current Alcohol intake frequency: a few times a week Patient Tobacco Use Status: Former Tobacco user e-Cigarette/Vaping Use: Never Used service: No Current occupational status: retired Cognitive needs: No Hearing needs: No Vision needs: Yes Questionnaire Thrive Questionnaire Date Thrive assessed: 01/19/24 I am a: Patient What is your living situation today?: I have a steady place to live Within the past 12 months, did the food you bought not last and you didn't have the money to get more?: Never true Within the past 12 months, did you worry whether your food would run out before you got money to buy more?: Never true Do you have trouble paying for medicines?: No Do you have trouble getting transportation to medical appointments?: No Do you have trouble paying your heating and electricity bill?: No Do you have trouble taking care of your child, family member or friend?: No Do you have trouble with day-to-day activities such as bathing, preparing meals, shopping, managing finances, etc.?: No Are you currently unemployed and looking for a job?: No Are you interested in more education?: No Please select the resources that you would like help with: None Currently or been in a relationship where the following occur: No concerns reported THRIVE Score: 0 ANAYELI-7 AMB Questionnaire ANAYELI-7 Date ANAYELI - 7 assessed: 01/19/24 Source: Developed by Drs. Trey Dolan, Tova Pereira, Cholo Damon and colleagues, with an educational alvaro from [employer] Review of Systems Const All systems reviewed & are unremarkable except as noted in HPI and below ENT Reports no additional complaints Card Reports no additional complaints Resp Reports no additional complaints GI Reports no additional complaints Reports no additional complaints Physical exam (Primary Care) Vital Signs: Last Vital Signs Temp 98.0 F 10/03/24 09:32 Pulse 78 10/03/24 09:32 Resp 18 10/03/24 09:32 BP 122/62 10/03/24 09:32 Pulse Ox 95 10/03/24 09:32 Oxygen Delivery Method Room Air 10/03/24 09:32 BMI result Body Mass Index 21.6 Tobacco/Smoking Status: Tobacco use Status Tobacco use date assessed 10/03/24 10/03/24 09:39 Patient Tobacco Use Status Former Tobacco user 10/03/24 09:39 e-Cigarette/Vaping Use Never Used 10/03/24 09:39 Thrive Assessment: Date of Thrive Assessment Date Thrive assessed 01/19/24 10/03/24 09:39 Currently or been in a relationship where the following occur: No concerns reported Const General: no acute distress HENMT Head: Yes normal to inspection Throat: Yes posterior oropharynx normal Neck Neck: Yes supple Resp Effort & Inspection: normal respiratory effort Auscultation: clear to auscultation bilaterally Cardio Rhythm: regular rhythm Heart sounds: S1 normal heart sound present and S2 normal heart sound present GI Inspection: Yes normal to inspection Palpation (GI): Soft to palpation Percussion: Yes normal to percussion Auscultation: normal bowel sounds Extrem Other: Diabetic foot exam: dry skin and calluses present but no open ulcers, monofilament sensation intact bilaterally. overgrown toenails Coding Level of Care Code Est Pt Level 4 (13014) Complex EM visit Add On G2211 Diagnoses DM type 2 (diabetes mellitus, type 2) E11.9 CKD (chronic kidney disease) stage 3, GFR 30-59 ml/min N18.30 Hyperlipidemia E78.5 HTN (hypertension) I10 Squamous cell carcinoma of right lower leg C44.722 Cognitive impairment, mild, so stated G31.84 PMR (polymyalgia rheumatica) M35.3 Assessment & Plan Assessment & Plan (1) DM type 2 (diabetes mellitus, type 2): Code(s): E11.9 - Type 2 diabetes mellitus without complications Category: Medical Plan: A1c is 7.0. Continue ADA diet regular physical activity current medications, referred to absorption plant operator helper for diabetic foot care (2) CKD (chronic kidney disease) stage 3, GFR 30-59 ml/min: Code(s): N18.30 - Chronic kidney disease, stage 3 unspecified Category: Medical Plan: Avoid nephrotoxins monitor renal function slightly improved on Jardiance (3) Hyperlipidemia: Code(s): E78.5 - Hyperlipidemia, unspecified Category: Medical Plan: Continue statin (4) HTN (hypertension): Code(s): I10 - Essential (primary) hypertension Category: Medical Plan: Continue current medications (5) Squamous cell carcinoma of right lower leg: Comment: Removed by Dr. Reed 2020, established with thoracic surgeon Code(s): C44.722 - Squamous cell carcinoma of skin of right lower limb, including hip Category: Medical Plan: Follow-up with thoracic surgeon for surveillance (6) Cognitive impairment, mild, so stated: Comment: Established with Neurology on donepezil and Namenda, started on citalopram for anxiety Code(s): G31.84 - Mild cognitive impairment of uncertain or unknown etiology Category: Medical Plan: Follow-up with neurology (7) PMR (polymyalgia rheumatica): Comment: on Prednisone since 12/07 Unable to wean 05/2024. Kept on low dose prednisone 1mg Code(s): M35.3 - Polymyalgia rheumatica Category: Medical Plan: Follow-up with rheumatology, patient does not remember discussion about starting Prolia injection Orders: Orders Comprehensive [place]. Panel Fast 4 Months E11.9 - Type 2 diabetes mellitus without complications, N18.30 - Chronic kidney disease, stage 3 unspecified Complete Blood Count Auto Diff 4 Months E11.9 - Type 2 diabetes mellitus without complications, N18.30 - Chronic kidney disease, stage 3 unspecified Hemoglobin A1c 4 Months E11.9 - Type 2 diabetes mellitus without complications, N18.30 - Chronic kidney disease, stage 3 unspecified Microalbumin, Random (w Creat) 4 Months E11.9 - Type 2 diabetes mellitus without complications, N18.30 - Chronic kidney disease, stage 3 unspecified Referrals Podiatry Referral E11.9 - Type 2 diabetes mellitus without complications
== END 2024-10-03 10:09 | disposition home or self-care (01) ==
LOC: HO.HMCC 09:20
PROVIDERS: PCP Internal Medicine; Visit Provider Internal Medicine
DX: E11.9 Type 2 diabetes mellitus without complications (principal); N18.30 Chronic kidney disease, stage 3 unspecified; E78.5 Hyperlipidemia, unspecified; I10 Essential (primary) hypertension; C44.722 Squamous cell carcinoma of skin of right lower limb, including hip; G31.84 Mild cognitive impairment of uncertain or unknown etiology; M35.3 Polymyalgia rheumatica; Z23 Encounter for immunization

== ENCOUNTER → 2024-10-03 09:19 | Outpatient (BNVA) | payer MEDICARE, SELFPAY | PROVIDERS: PCP Internal Medicine; Visit Provider Internal Medicine | DX: Z23 Encounter for immunization (principal); I12.9 Hypertensive chronic kidney disease with stage 1 through stage 4 chronic kidney disease, or unspecified chronic kidney disease; E11.22 Type 2 diabetes mellitus with diabetic chronic kidney disease; N18.30 Chronic kidney disease, stage 3 unspecified; E78.5 Hyperlipidemia, unspecified; C44.722 Squamous cell carcinoma of skin of right lower limb, including hip; G31.84 Mild cognitive impairment of uncertain or unknown etiology; M35.3 Polymyalgia rheumatica | CPT/HCPCS: 90471; 90677; 99212 ==

== ENCOUNTER 2024-10-31 14:01 | Outpatient (AMB) | payer MEDICARE, SELFPAY ==
[2024-10-31 14:02] VITALS: BP 110/66; PULSE 69; TEMP 36.6; O2SAT 98; BMI 23.3
--- NOTE | 2024-10-31 14:02 | AM.OFFWIN_ITS ---
Intake Vital Signs 10/31/24 14:02 Height 5 ft 5 in Weight 140 lb BMI 23.3 BP 110/66 Blood Pressure Location Lt brachial Position Sitting Pulse 69 Pulse Source Pulse Oximeter Temp 97.9 F Temp Source Oral Pulse Oximetry (%) 98 Oxygen Delivery Method Room Air Intake Visit Reasons: EP high BS 297, unsteady on feet Intake Note: Pt presents to the office today for c/o a high BS of 297 and unsteady on her feet. Patient Tobacco Use Status: Former Tobacco user Allergies peanuts Allergy (Severe, Uncoded 10/31/24 14:05) anaphylaxis HPI HPI Comments History of Present Illness Details 83 y/o Female patient who presents to [facility] walk [facility] because she was told to go to Urgent care for an evaluation of elevated BS and Unsteadiness on her feet. Pt had PET Scan scheduled at [facility] this morning - she became unsteady for few seconds and her BG was found to be at 297. A radio tech from [facility] advised the patient to go to for further evaluation. Pt had a bowl of cereal plus one Cup of coffee @ 9 am before the appointment so the Sugar was non-fasting at the time of testing. Pt has T2DM with recent A1C of 7% (09/2024) - currently on Metformin and Jardiance. Pt has Cognitive Impairment disorder and currently [place] [facility] [place] was having PET SCAN due to Anti-Amyloid therapy to be started soon. Pt denies any systemic symptoms today. [facility] Medical History Annual physical exam Anxiety Cognitive impairment, mild, so stated CKD (chronic kidney disease) stage 3, GFR 30-59 ml/min DM type 2 (diabetes mellitus, type 2) Hyperlipidemia HTN (hypertension) Squamous cell carcinoma of right lower leg Diabetes mellitus Skin growth Surgical History History of squamous cell carcinoma excision (08/13/18) History of excision of mass (02/20/15) History of hand surgery History of tonsillectomy and adenoidectomy History of excision of lesion (05/30/09) History of excision of lesion (05/03/18) Status post cataract surgery Family History Mother No problems noted. Father No problems noted. Daughter History of breast cancer Paternal Grandmother Breast cancer Social History Household Members: Family and None Housing: House Alcohol intake: current Alcohol intake frequency: a few times a week Patient Tobacco Use Status: Former Tobacco user e-Cigarette/Vaping Use: Never Used service: No Current occupational status: retired Cognitive needs: No Hearing needs: No Vision needs: Yes Review of Systems Const All systems reviewed & are unremarkable except as noted in HPI and below Physical Exam Vital Signs: Last Vital Signs Temp 97.9 F 10/31/24 14:02 Pulse 69 10/31/24 14:02 BP 110/66 10/31/24 14:02 Pulse Ox 98 10/31/24 14:02 Oxygen Delivery Method Room Air 10/31/24 14:02 BMI result Body Mass Index 23.3 Const General: comfortable and no acute distress Nutritional Appearance: well nourished Resp Effort & Inspection: normal respiratory effort and able to speak in complete sentences Auscultation: clear to auscultation bilaterally Cardio Heart sounds: S1 normal heart sound present and S2 normal heart sound present Neuro General: gait normal and moves all extremities Psych Speech and movement: Normal speech and movement present Results AMB Random Glucose (hemocue) AMB Random Glucose (hemocue) 285 mg/dL Last Edit by Radha Kinney CMA on 10/31/24 14:16 Results Reviewed Results Reviewed: Laboratory Last Values Random Glu (Clinic) 285 mg/dL 10/31/24 14:16 Assessment & Plan Assessment & Plan (1) DM type 2 (diabetes mellitus, type 2): Code(s): E11.9 - Type 2 diabetes mellitus without complications Qualifiers: Diabetes mellitus complication status: without complication Diabetes mellitus parts counterman insulin use: without parts counterman use Qualified Code(s): E11.9 - Type 2 diabetes mellitus without complications Plan: Managed by PCP Continue on current regiment as prescribed (2) Cognitive impairment, mild, so stated: Comment: Established with Neurology on donepezil and Namenda, started on citalopram for anxiety Code(s): G31.84 - Mild cognitive impairment of uncertain or unknown etiology Plan: Managed by Neurology. Orders: Orders AMB Random Glucose (hemocue) Today Z13.9 - Encounter for screening, unspecified Coding Level of Care Code Est Pt Level 4 (64843) Diagnoses Type 2 diabetes mellitus without complication, without long-term current use of insulin E11.9 Diabetes mellitus complication status: without complication Diabetes mellitus parts counterman insulin use: without fpc use Cognitive impairment, mild, so stated G31.84 Time Spent (min) 20
== END 2024-10-31 14:31 | disposition home or self-care (01) ==
PROVIDERS: PCP Internal Medicine; Visit Provider Nurse Practitioner Family
DX: E11.9 Type 2 diabetes mellitus without complications (principal); G31.84 Mild cognitive impairment of uncertain or unknown etiology; Z13.9 Encounter for screening, unspecified

== ENCOUNTER → 2024-10-31 14:01 | Outpatient (BNVA) | payer MEDICARE, SELFPAY | PROVIDERS: PCP Internal Medicine; Visit Provider Nurse Practitioner Family | DX: E11.9 Type 2 diabetes mellitus without complications (principal); G31.84 Mild cognitive impairment of uncertain or unknown etiology | CPT/HCPCS: 82948; 99212 ==

== ENCOUNTER 2024-11-10 13:47 | Outpatient (AMB) | payer MEDICARE, SELFPAY ==
--- NOTE | 2024-11-10 13:59 | A.OFFPC_ITS ---
Vital Signs 11/10/24 14:00 Height 5 ft 5 in Weight 126 lb BMI 21.0 BP 120/64 Blood Pressure Location Rt brachial Position Sitting Respiration 18 Pulse 71 Pulse Source Pulse Oximeter Temp 98.0 F Temp Source Oral Pulse Oximetry (%) 98 Oxygen Delivery Method Room Air Intake Visit Reasons: FU check up Intake Note: Pt is here today for a follow up visit. Allergies peanuts Allergy (Severe, Uncoded 11/10/24 14:00) anaphylaxis Medication List - Last Reconciled 11/10/24 by Elana Rubio MD amlodipine 2.5 mg PO DAILY blood sugar diagnostic ([employer] Ultra Test strips) 1 qd blood-glucose meter ([employer] CCCTouch Ultra2 Meter) As directed cholecalciferol (vitamin D3) 50 mcg PO DAILY citalopram 20 mg PO DAILY donepezil 10 mg PO DAILY empagliflozin (Jardiance) 10 mg PO DAILY fluorouracil 5% appl topical hydrocortisone 2.5% appl topical imiquimod 5% topical lisinopril 10 mg PO DAILY memantine 14 mg PO DAILY MDD 14mg metformin ER 500 mg PO BEDTIME prednisone 1 mg PO DAILY simvastatin 10 mg PO BEDTIME Tobacco use date assessed: 11/10/24 Fall risk assessment: 1 Fall in past year Last assessed Fall Risk: 11/10/24 Dental Screening Dental Screen Date: 11/10/24 Did you have a dental visit in the last 12 months?: Yes Did you have a dental problem in the last 6 months where you did not have access to dental care?: No Was dental information given to patient?: Patient has dentist HPI FU check up HPI Details Patient presents for the follow-up. She went for the PET scan to evaluate for dementia but was found to have elevated blood glucose at 290. Patient has not been compliant with ADA diet eating lot of ice cream. She has been taking Jardiance and metformin regularly. Patient denies polyuria polydipsia. [facility] Medical History Annual physical exam Anxiety Cognitive impairment, mild, so stated CKD (chronic kidney disease) stage 3, GFR 30-59 ml/min DM type 2 (diabetes mellitus, type 2) Hyperlipidemia HTN (hypertension) Squamous cell carcinoma of right lower leg Diabetes mellitus Skin growth Surgical History History of squamous cell carcinoma excision (08/13/18) History of excision of mass (02/20/15) History of hand surgery History of tonsillectomy and adenoidectomy History of excision of lesion (05/30/09) History of excision of lesion (05/03/18) Status post cataract surgery Family History Mother No problems noted. Father No problems noted. Daughter History of breast cancer Paternal Grandmother Breast cancer Social History Household Members: Family and None Housing: House Alcohol intake: current Alcohol intake frequency: a few times a week Patient Tobacco Use Status: Former Tobacco user e-Cigarette/Vaping Use: Never Used service: No Current occupational status: retired Cognitive needs: No Hearing needs: No Vision needs: Yes Questionnaire PHQ-9 Over the last 2 weeks, how often have you been bothered by any of the following problems? 1. Little interest or pleasure in doing things: not at all 2. Feeling down, depressed, or hopeless: not at all 3. Trouble falling or staying asleep, or sleeping too much: not at all 4. Feeling tired or having little energy: not at all 5. Poor appetite or overeating: not at all 6. Feeling bad about yourself - or that you are a failure or have let yourself or your family down: not at all 7. Trouble concentrating on things, such as reading the newspaper or watching television: not at all 8. Moving or speaking so slowly that other people could have noticed. Or the opposite - being so fidgety or restless that you have been moving around a lot more than usual: not at all 9. Thoughts that you would be better off or of hurting yourself in some way: not at all Total score: 0 Depression Screening Interpretation: Negative Depression Screening Done: Yes 11015 - PHQ-9 Billing: Yes Source: Developed by Drs. Trey Dolan, Tova Pereira, Cholo Damon and colleagues, with an educational alvaro from [employer]. Thrive Questionnaire Date Thrive assessed: 11/10/24 I am a: Patient What is your living situation today?: I have a steady place to live Within the past 12 months, did the food you bought not last and you didn't have the money to get more?: Never true Within the past 12 months, did you worry whether your food would run out before you got money to buy more?: Never true Do you have trouble paying for medicines?: Yes Do you have trouble getting transportation to medical appointments?: No Do you have trouble paying your heating and electricity bill?: No Do you have trouble taking care of your child, family member or friend?: No Do you have trouble with day-to-day activities such as bathing, preparing meals, shopping, managing finances, etc.?: I choose not to answer this question Are you currently unemployed and looking for a job?: No Are you interested in more education?: No Please select the resources that you would like help with: None Currently or been in a relationship where the following occur: I choose not to answer THRIVE Score: 0 AUDIT C Alcohol Use Questionnaire (AUDIT-C) 1. How often do you have a drink containing alcohol?: Monthly or less 2. How many drinks containing alcohol do you have on a typical day when you are drinking?: 1 or 2 3. How often do you have six or more drinks on one occasion?: Never Total Score: 1 ANAYELI-7 AMB Questionnaire ANAYELI-7 Date ANAYELI - 7 assessed: 11/10/24 Feeling nervous, anxious, or on edge: 0 = Not at all Not being able to stop or control worryin = Not at all Worrying too much about different things: 0 = Not at all Trouble relaxin = Not at all Being so restless that it is hard to sit still: 0 = Not at all Becoming easily annoyed or irritable: 0 = Not at all Feeling afraid as if something awful might happen: 0 = Not at all Total ANAYELI-7 score (0-4 normal; 5-9 mild; 10-14 moderate; 15-21 severe): 0 Source: Developed by Drs. Trey Dolan, Tova Pereira, Cholo Damon and colleagues, with an educational alvaro from [employer]. ANAYELI-7 Assessment Billing ANAYELI-7 Assessment Tool: ANAYELI-7 Assessment 88721 Review of Systems Const All systems reviewed & are unremarkable except as noted in HPI and below Eyes Reports no additional complaints ENT Reports no additional complaints Card Reports no additional complaints Resp Reports no additional complaints GI Reports no additional complaints Reports no additional complaints Physical exam (Primary Care) Vital Signs: Last Vital Signs Temp 98.0 F 11/10/24 14:00 Pulse 71 11/10/24 14:00 Resp 18 11/10/24 14:00 BP 120/64 11/10/24 14:00 Pulse Ox 98 11/10/24 14:00 Oxygen Delivery Method Room Air 11/10/24 14:00 BMI result Body Mass Index 21.0 Tobacco/Smoking Status: Tobacco use Status Tobacco use date assessed 11/10/24 11/10/24 14:01 Patient Tobacco Use Status Former Tobacco user 11/10/24 14:01 e-Cigarette/Vaping Use Never Used 11/10/24 14:01 PHQ-9: PHQ-9 Score PHQ-9: Total score 0 11/10/24 14:29 Depression Screening Interpretation: Negative Thrive Assessment: Date of Thrive Assessment Date Thrive assessed 11/10/24 11/10/24 14:01 Currently or been in a relationship where the following occur: I choose not to answer Const General: no acute distress HENMT Head: Yes normal to inspection Mouth: Normal oral and palatal mucosa present Eyes General: appearance normal, both eyes and all related structures Neck Neck: Yes no lymphadenopathy and Yes supple Resp Effort & Inspection: normal respiratory effort Auscultation: clear to auscultation bilaterally Cardio Rhythm: regular rhythm Heart sounds: S1 normal heart sound present and S2 normal heart sound present GI Inspection: Yes normal to inspection Percussion: Yes normal to percussion Results AMB Random Glucose (hemocue) AMB Random Glucose (hemocue) 131 mg/dL Last Edit by CARLOS Diaz on 11/10/24 14:46 Coding Level of Care Code Est Pt Level 3 (43025) Diagnoses Type 2 diabetes mellitus without complication, without long-term current use of insulin E11.9 Diabetes mellitus complication status: without complication Diabetes mellitus skilled nursing insulin use: without skilled nursing use Additional Codes ANAYELI-7 Assessment Billing - ANAYELI-7 Assessment Tool: ANAYELI-7 Assessment 11564 ([id number]) PHQ-9 - 49362 - PHQ-9 Billing: Yes ([id number]) Assessment & Plan Assessment & Plan (1) DM type 2 (diabetes mellitus, type 2): Code(s): E11.9 - Type 2 diabetes mellitus without complications Category: Medical Qualifiers: Diabetes mellitus complication status: without complication Diabetes mellitus middle or intermediate school principal insulin use: without middle or intermediate school principal use Qualified Code(s): E11.9 - Type 2 diabetes mellitus without complications Plan: Non fasting blood glucose today is 133. Metformin will be increased to 1000 mg and Jardiance will be continued, ADA diet discussed with the patient. She was advised to start monitoring her fasting blood glucose recorded reading return in 1 month with a fasting labs before Orders: Orders AMB Random Glucose (hemocue) Today Z13.9 - Encounter for screening, unspecified Complete Blood Count Auto Diff 1 Month E11.9 - Type 2 diabetes mellitus without complications Comprehensive [place]. Panel Fast 1 Month E11.9 - Type 2 diabetes mellitus without complications Hemoglobin A1c 1 Month E11.9 - Type 2 diabetes mellitus without complications Lipid Panel 1 Month E11.9 - Type 2 diabetes mellitus without complications Medications: New blood sugar diagnostic (OneTouch Ultra Test strips) 1 qd 100 ea 2RF blood-glucose meter (OneTouch Ultra2 Meter) As directed 1 ea 0RF Changed From metformin ER 500 mg PO BEDTIME 90 tabs 3RF To metformin ER 1,000 mg (2 x 500 mg) PO .qd 180 tabs 3RF
[2024-11-10 14:00] VITALS: BP 120/64; PULSE 71; RESP 18; TEMP 36.7; O2SAT 98; BMI 21.0
== END 2024-11-10 14:33 | disposition home or self-care (01) ==
LOC: HO.HMCC 13:48
PROVIDERS: PCP Internal Medicine; Visit Provider Internal Medicine
DX: E11.9 Type 2 diabetes mellitus without complications (principal); Z13.9 Encounter for screening, unspecified

== ENCOUNTER → 2024-11-10 13:47 | Outpatient (BNVA) | payer MEDICARE, SELFPAY | PROVIDERS: PCP Internal Medicine; Visit Provider Internal Medicine | DX: E11.9 Type 2 diabetes mellitus without complications (principal); Z87.891 Personal history of nicotine dependence | CPT/HCPCS: 82948; 96127; 99212 ==

== ENCOUNTER 2024-12-16 10:33 | Outpatient (REF) | payer MEDICARE, SELFPAY ==
--- OUTSIDE RECORDS SUMMARY | 2024-12-16 10:41 | XMS_ITS | Clinical Summary ---
Author Organization [facility] Address [address] [place] [address] Phone Care Team Providers Care Severity Of Illness Coordinator Name Role Phone Elana Rubio MD Primary Care Provider [phone] Allergies Active Allergy Reactions Criticality Noted Date Comments Peanut Anaphylaxis High 06/24/2023 Medications citalopram (CELEXA) 20 MG tablet Take 1 tablet by mouth every morning. 05/07/2023 Active donepeziL (ARICEPT) 10 MG tablet TAKE 1/2 TAB EVERY DAY FOR 4 WEEKS THEN 1 TAB EVERY DAY ORALLY DAILY 05/07/2023 Active lisinopril (PRINIVIL,ZESTR IL) 10 MG tablet Take 1 tablet by mouth every morning. 05/15/2023 Active metFORMIN (GLUCOPHAGE-XR) 500 MG 24 hr tablet Take 500 mg by mouth nightly at bedtime. at bedtime. 04/30/2023 Active predniSONE (DELTASONE) 5 MG tablet Take 2 tablets by mouth every morning. 05/24/2023 Active simvastatin (ZOCOR) 10 MG tablet Take 10 mg by mouth nightly at bedtime. at bedtime. 03/26/2023 Active Family History Relation Status Comments Father Mother Social History Tobacco Use Types Packs/Day Years Used Date Smoking Tobacco: Former Cigarettes 1 10 1 963 - 1972 Smokeless Tobacco: Never Tobacco Cessation:Counseling Given: Not Answered Alcohol Use Standard Drinks/Week Comments Yes 0 (1 standard drink = 0.6 oz pur e alcohol) Education Answer Date Recorded Are you interested in more education? Not on sharda e 06/19/2023 Are you concerned about learning? Not on file 06/19/2023 No 06/19/2023 No 06/19/2023 Digital Access Answer Date Recorded No 06/19/2023 No 06/19/2023 Reliable internet access at home? Not on file 06/19/2023 Device with a working camera? Not on file Comments Unknown Sex and Gender Information Value Date Recorded Sex Assigned at Not on file Legal Sex Female 9:34 AM EST Gender Identity Not on file Sexual Orientation Not on file Last Filed Vital Signs Vital Sign Reading Time Taken Comments Blood Pressure 158/52 08/14/2023 12:30 PM EDT Pulse 58 08/14/2023 12:30 PM EDT Temperature - - Respiratory Rate - - Oxygen Saturation 99% 08/14/2023 12:30 PM EDT Inhaled Oxygen Concentration - - Weight 57 kg (125 lb 9.6 oz) 06/24/2023 11:08 AM EST Height 161.3 cm (5' 3.5 ) 06/24/2023 11:08 AM ES T Body Mass Index 21.9 06/24/2023 11:08 AM EST Plan of Treatment Health Maintenance Due Date Last Done Comments Adult Td,Tdap Booster 1941 CREATININE LEVEL 1941 POTASSIUM LEVEL 1941 DEPRESSION SCREENING 1953 PNEUMOCOCCAL VACCINES (50+ years) (1 of 1 - PCV) 12/16/1991 ZOSTER VACCINES (1 of 2) 12/16/1991 OSTEOPOROSIS SCREENING INITIAL (ONE-TIME) 2006 RSV VACCINE (1 - 1-dose 75+ series) 2016 COVID-19 VACCINE ( season) 2024 03/19/2023, 06/03/2022, 03/19/2021, Additional history exists HEPATITIS A VACCINES Aged Out No long er eligible based on patient's age to complete this topic HIB VACCINES Aged Out No longer eligi ble based on patient's age to complete this topic MENINGOCOCCAL VACCINES (ACWY) Aged Out No longer eligible based on patient's age to complete this topic MENINGOCOCCAL VACCINES (B) Aged Out N o longer eligible based on patient's age to complete this topic Medical Devices Not on file Insurance MEDICARE PART A & B [employer] MEDEX SUPPLEMENT MEDICARE PART A & B [employer] MEDEX SUPPLEMENT MEDICARE PART A & B [employer] SUPPLEMENT MEDICARE PART A & B [employer] MEDEX SUPPLEMENT MEDICARE PART A & B Member Subscriber Plan / Payer (Ef fective 2009-Present) Name:Lili Pineda Member ID:[id number] Relation to Subscriber:Self Name:Lili Pineda Subscriber ID:[id number] Payer ID:[id number] Group ID:Not on file Type:Medicare Address: [employer] [facility].[address] [address] [facility] MEDEX SUPPLEMENT MEDICARE PART A & B [employer] MEDEX SUPPLEMENT Care Teams Severity Of Illness Coordinator Relationship Specialty Start Date End Date Elana Rubio MD [address] [facility] [place] [id number] PCP - General Internal Medicine 06/19/23 Additional Source Comments The information contained in this document represents components of the legal health record. It is not the complete legal health record.[facility]
[2024-12-16 14:26] LABS: MANUAL DIFF FLAG NO
[2024-12-16 14:33] LABS: Hematocrit 35.1 % (37.0-47.0); Hemoglobin 12.1 g/dl (12.0-16.0); Imm Gran Abs Auto 0.01 X10*3/uL (0.00-0.03); Imm Gran Pct Auto 0.2 % (0.0-0.4); Lymphocytes Absolute Auto 2.0 X10*3/uL (1.2-4.9); Mean Corpuscular HGB Conc 34.5 g/dl (31.0-35.0); Mean Corpuscular Hemoglobin 33.3 pg (27.0-33.0); Mean Corpuscular Volume 96.7 fL (80.0-98.0); NRBC Abs Auto 0.000 X10*3/uL (0.0-0.012); NRBC Pct Auto 0.0 /100WBC (0.0-0.2); Platelet Count 158 X10*3/uL (160-400); Red Blood Count 3.63 X10*6/uL (4.20-5.50); White Blood Count 4.8 X10*3/uL (4.8-10.8)
[2024-12-16 14:43] LABS: Alanine Aminotransferase 15 U/L (0-31); Albumin Level 4.9 g/dL (3.5-5.0); Alkaline Phosphatase 38 U/L (39-117); Anion Gap 18 (12-20); Aspartate Amino Transferase 21 U/L (5-31); Blood Urea Nitrogen 39 mg/dL (9-16); Calcium 9.1 mg/dL (8.4-10.2); Carbon Dioxide 20 mmol/L (22-29); Chloride 102 mmol/L (96-108); Cholesterol 153 mg/dL (<200); Estimated Glomerular Filt Rate 18; HDL Cholesterol 62 mg/dL (>40); Potassium 4.9 mmol/L (3.3-5.1); Sodium 135 mmol/L (135-145); Total Protein 7.3 g/dL (6.5-8.0); Triglycerides 146 mg/dL (<150)
[2024-12-16 14:59] LABS: Hemoglobin A1C 162.0341 umol/L; Total Hemoglobin (HGBA1C) 3227.9434 umol/L
== END 2024-12-16 10:34 | disposition home or self-care (01) ==
LOC: HO.HMGCLDS 10:33
PROVIDERS: PCP Internal Medicine; Visit Provider Internal Medicine
DX: E11.9 Type 2 diabetes mellitus without complications (principal)
CPT/HCPCS: 36415; 80053; 80061; 83036; 85025

== ENCOUNTER 2024-12-19 09:02 | Outpatient (AMB) | payer MEDICARE, SELFPAY ==
[2024-12-19 09:07] VITALS: BP 90/56; PULSE 79; RESP 16; O2SAT 97; BMI 19.1
--- NOTE | 2024-12-19 09:07 | MHC.PC.OV ---
Vital Signs 12/19/24 09:07 Height 5 ft 5 in Weight 115 lb BMI 19.1 BP 90/56 L Blood Pressure Location Lt brachial Position Sitting Respiration 16 Pulse 79 Pulse Source Pulse Oximeter Pulse Oximetry (%) 97 Oxygen Delivery Method Room Air Intake Visit Reasons: 1 month f/up Intake Note: Pt is here today for 1 month follow up visit. Allergies peanuts Allergy (Severe, Uncoded 12/19/24 09:11) anaphylaxis Tobacco use date assessed: 12/19/24 Fall risk assessment: 2 + Falls in past year Last assessed Fall Risk: 12/19/24 Dental Screening Dental Screen Date: 12/19/24 Did you have a dental visit in the last 12 months?: Yes Did you have a dental problem in the last 6 months where you did not have access to dental care?: No Was dental information given to patient?: Patient has dentist HPI 1 month f/up HPI Details Patient presents for the follow-up with her . She reports feeling more tired and lightheaded when getting up for the last month. Patient had 2 falls at home but denies loss of consciousness chest pain shortness or breath palpitations or head trauma. Patient has been more forgetful. Her sister has been monitor her fasting blood glucose with the readings between 110-130. [facility] Medical History Annual physical exam Anxiety Cognitive impairment, mild, so stated CKD (chronic kidney disease) stage 3, GFR 30-59 ml/min DM type 2 (diabetes mellitus, type 2) Hyperlipidemia HTN (hypertension) Squamous cell carcinoma of right lower leg Diabetes mellitus Skin growth Surgical History History of squamous cell carcinoma excision (08/13/18) History of excision of mass (02/20/15) History of hand surgery History of tonsillectomy and adenoidectomy History of excision of lesion (05/30/09) History of excision of lesion (05/03/18) Status post cataract surgery Family History Mother No problems noted. Father No problems noted. Daughter History of breast cancer Paternal Grandmother Breast cancer Social History (Reviewed 08/04/25 @ 09:16 by HARPER Diaz Household Members: Family and None Housing: House Alcohol intake: current Alcohol intake frequency: a few times a week Patient Tobacco Use Status: Former Tobacco user e-Cigarette/Vaping Use: Never Used service: No Current occupational status: retired Cognitive needs: No Hearing needs: No Vision needs: Yes Questionnaire Thrive Questionnaire Date Thrive assessed: 11/10/24 I am a: Patient What is your living situation today?: I have a steady place to live Within the past 12 months, did the food you bought not last and you didn't have the money to get more?: Never true Within the past 12 months, did you worry whether your food would run out before you got money to buy more?: Never true Do you have trouble paying for medicines?: Yes Do you have trouble getting transportation to medical appointments?: No Do you have trouble paying your heating and electricity bill?: No Do you have trouble taking care of your child, family member or friend?: No Do you have trouble with day-to-day activities such as bathing, preparing meals, shopping, managing finances, etc.?: I choose not to answer this question Are you currently unemployed and looking for a job?: No Are you interested in more education?: No Please select the resources that you would like help with: None Currently or been in a relationship where the following occur: I choose not to answer THRIVE Score: 0 ANAYELI-7 AMB Questionnaire ANAYELI-7 Date ANAYELI - 7 assessed: 11/10/24 Source: Developed by Drs. Trey Dolan, Tova Pereira, Cholo Damon and colleagues, with an educational alvaro from [employer]. Review of Systems Const All systems reviewed & are unremarkable except as noted in HPI and below Eyes Reports no additional complaints ENT Reports no additional complaints Card Reports no additional complaints Resp Reports no additional complaints GI Reports no additional complaints Reports no additional complaints Physical exam (Primary Care) Vital Signs: Last Vital Signs Pulse 79 12/19/24 09:07 Resp 16 12/19/24 09:07 BP 90/56 L 12/19/24 09:07 Pulse Ox 97 12/19/24 09:07 Oxygen Delivery Method Room Air 12/19/24 09:07 BMI result Body Mass Index 19.1 Tobacco/Smoking Status: Tobacco use Status Tobacco use date assessed 12/19/24 12/19/24 09:16 Patient Tobacco Use Status Former Tobacco user 12/19/24 09:07 e-Cigarette/Vaping Use Never Used 12/19/24 09:07 Thrive Assessment: Date of Thrive Assessment Date Thrive assessed 11/10/24 12/19/24 09:07 Currently or been in a relationship where the following occur: I choose not to answer Const General: no acute distress HENMT Head: Yes normal to inspection Eyes General: appearance normal, both eyes and all related structures Resp Effort & Inspection: normal respiratory effort Auscultation: clear to auscultation bilaterally Cardio Rhythm: regular rhythm Heart sounds: S1 normal heart sound present and S2 normal heart sound present GI Inspection: Yes normal to inspection Palpation (GI): Soft to palpation Percussion: Yes normal to percussion Auscultation: normal bowel sounds Extrem General: Yes no clubbing, cyanosis or edema Coding Level of Care Code Est Pt Level 4 (75273) Diagnoses CKD (chronic kidney disease) stage 3, GFR 30-59 ml/min N18.30 HTN (hypertension) I10 Type 2 diabetes mellitus without complication, without long-term current use of insulin E11.9 Diabetes mellitus tank terminal gauger insulin use: without tank terminal gauger use Diabetes mellitus complication status: without complication Assessment & Plan Assessment & Plan (1) CKD (chronic kidney disease) stage 3, GFR 30-59 ml/min: Code(s): N18.30 - Chronic kidney disease, stage 3 unspecified Category: Medical Plan: For worsening renal function and hypotension patient was advised to stop lisinopril increase fluid intake. Urinalysis and renal ultrasound will be obtained to evaluate for obstruction (2) HTN (hypertension): Code(s): I10 - Essential (primary) hypertension Category: Medical Plan: Stop lisinopril follow-up in 3 days for blood pressure (3) DM type 2 (diabetes mellitus, type 2): Code(s): E11.9 - Type 2 diabetes mellitus without complications Category: Medical Qualifiers: Diabetes mellitus tank terminal gauger insulin use: without tank terminal gauger use Diabetes mellitus complication status: without complication Qualified Code(s): E11.9 - Type 2 diabetes mellitus without complications Plan: A1c is 6.7, continue current medication monitor blood glucose and check basic metabolic panel in 3 days Orders: Orders UA w Microscopic Today I10 - Essential (primary) hypertension, N18.30 - Chronic kidney disease, stage 3 unspecified US renal BI Today N17.9 - Acute kidney failure, unspecified, N18.30 - Chronic kidney disease, stage 3 unspecified
--- OUTSIDE RECORDS SUMMARY | 2024-12-19 09:28 | XMS_ITS | Clinical Summary ---
Author Organization [facility] Address [address] [place] [address] Phone Care Team Providers Care Bodybuilder Name Role Phone Elana Rubio MD Primary Care Provider [phone] Allergies Active Allergy Reactions Criticality Noted Date [...] file Insurance MEDICARE PART A & B [employer] MEDEX SUPPLEMENT MEDICARE PART A & B [employer] MEDEX SUPPLEMENT MEDICARE PART A & B [id number] SUPPLEMENT MEDICARE PART A & B [employer] MEDEX SUPPLEMENT MEDICARE PART A & B Member Subscriber Plan / Payer (Ef fective 2009-Present) Name:Lili Pineda Member ID:[id number] Relation to Subscriber:Self Name:Lili Pineda Subscriber ID:[id number] Payer ID:[id number] Group ID:Not on file Type:Medicare Address: [employer] [facility].[address] [address] [facility] MEDEX SUPPLEMENT MEDICARE PART A & B [employer] MEDEX SUPPLEMENT Care Teams Bodybuilder Relationship Specialty Start Date End Date Elana Rubio MD [address] [facility] [address] PCP - General Internal Medicine 06/19/23 Additional Source Comments The information contained in this document represents components of the legal health record. It is not the complete legal health record.[facility]
== END 2024-12-19 12:32 | disposition home or self-care (01) ==
LOC: HO.HMCC 09:03
PROVIDERS: PCP Internal Medicine; Visit Provider Internal Medicine
DX: N18.30 Chronic kidney disease, stage 3 unspecified (principal); I10 Essential (primary) hypertension; E11.9 Type 2 diabetes mellitus without complications

== ENCOUNTER 2024-12-19 09:02 | Outpatient (REF) | payer MEDICARE, SELFPAY ==
[2024-12-19 13:03] LABS: Appearance Urine Turbid; Glucose Urine UA 500 mg/dL (Negative); PH 5.5 (5.0-9.0); Specific Gravity - Urine 1.015 (1.005-1.025); UMIC TRIGGER UA YES
== END 2024-12-19 09:03 | disposition home or self-care (01) ==
LOC: HO.HMGCLDS 09:02
PROVIDERS: PCP Internal Medicine; Visit Provider Internal Medicine
DX: I12.9 Hypertensive chronic kidney disease with stage 1 through stage 4 chronic kidney disease, or unspecified chronic kidney disease (principal); E11.22 Type 2 diabetes mellitus with diabetic chronic kidney disease; N18.30 Chronic kidney disease, stage 3 unspecified
CPT/HCPCS: 81001; 99212

== ENCOUNTER 2024-12-20 14:58 | Outpatient (REF) | payer MEDICARE, SELFPAY ==
--- NOTE | ~2024-12-20 | US_ITS ---
EXAMINATION: US KIDNEY BILATERAL HISTORY: N18.30 - Chronic kidney disease, stage 3 unspecified TECHNIQUE: Real-time grayscale ultrasound imaging of the kidneys was performed and images were reviewed. COMPARISON: There are no prior studies available for comparison. FINDINGS: Right kidney: The right kidney measures 8.6 x 3.9 x 5.1 cm. Renal parenchymal echotexture and thickness are normal. There are no masses. There is no hydronephrosis or renal calculi. Punctate echogenic foci are likely vascular. Left Kidney: The left kidney measures 8.0 x 3.8 x 4.3 cm. Renal parenchymal echotexture and thickness are normal. There are no masses. There is no hydronephrosis or renal calculi. Punctate echogenic foci likely vascular. US/US renal BI IMPRESSION: Unremarkable renal ultrasound. Electronically signed by: Trey Cage MD 12/20/2024 03:21 PM EDT
--- OUTSIDE RECORDS SUMMARY | 2024-12-20 15:28 | XMS_ITS | Clinical Summary ---
Author Organization [facility] Address [address] [place] [address] Phone Care Team Providers Care Demolition Hammer Operator Name Role Phone Elana Rubio MD Primary Care Provider [phone] Allergies Active Allergy Reactions Criticality Noted Date [...] file Insurance MEDICARE PART A & B Where Was it Filmed MEDEX SUPPLEMENT MEDICARE PART A & B Where Was it Filmed MEDEX SUPPLEMENT MEDICARE PART A & B [employer] SUPPLEMENT MEDICARE PART A & B Where Was it Filmed MEDEX SUPPLEMENT MEDICARE PART A & B Member Subscriber Plan / Payer (Ef fective 2009-Present) Name:Lili Pineda Member ID:[id number] Relation to Subscriber:Self Name:Lili Pineda Subscriber ID:[id number] Payer ID:[id number] Group ID:Not on file Type:Medicare Address: [employer] [facility].[address] [address] [facility] MEDEX SUPPLEMENT MEDICARE PART A & B [employer] MEDEX SUPPLEMENT Care Teams Demolition Hammer Operator Relationship Specialty Start Date End Date Elana Rubio MD [address] [facility] [place] [place] [id number] PCP - General Internal Medicine 06/19/23 Additional Source Comments The information contained in this document represents components of the legal health record. It is not the complete legal health record.[facility]
== END 2024-12-20 14:59 | disposition home or self-care (01) ==
LOC: HO.HMGCX 14:58
PROVIDERS: PCP Internal Medicine; Visit Provider Internal Medicine
DX: N18.30 Chronic kidney disease, stage 3 unspecified (principal); N17.9 Acute kidney failure, unspecified
CPT/HCPCS: 76775

== ENCOUNTER → 2024-12-20 15:04 | Outpatient (BNV) | payer MEDICARE, SELFPAY | PROVIDERS: PCP Internal Medicine; Visit Provider Radiology Diagnostic Radiology | DX: N18.30 Chronic kidney disease, stage 3 unspecified (principal) | CPT/HCPCS: 76775 ==

== ENCOUNTER 2024-12-21 09:10 | Outpatient (REF) | payer MEDICARE, SELFPAY ==
--- OUTSIDE RECORDS SUMMARY | 2024-12-21 09:30 | XMS_ITS | Clinical Summary ---
Author Organization [facility] Address [address] [place] [address] Phone Care Team Providers Care Machine Driller Name Role Phone Elana Rubio MD Primary Care Provider Allergies Active Allergy Reactions Criticality Noted Date [...] file Insurance MEDICARE PART A & B [employer] MEDEX SUPPLEMENT MEDICARE PART A & B [employer] MEDEX SUPPLEMENT MEDICARE PART A & B [employer] SUPPLEMENT MEDICARE PART A & B [employer] MEDEX SUPPLEMENT MEDICARE PART A & B Member Subscriber Plan / Payer (Ef fective 2009-Present) Name:Lili Pineda Member ID:[id number] Relation to Subscriber:Self Name:Lili Pineda Subscriber ID:[id number] Payer ID:[id number] Group ID:Not on file Type:Medicare Address: [employer] [facility].[address] [address] [facility] MEDEX SUPPLEMENT MEDICARE PART A & B [employer] MEDEX SUPPLEMENT Care Teams Machine Driller Relationship Specialty Start Date End Date Elana Rubio MD [address] [place] [address] PCP - General Internal Medicine 06/19/23 Additional Source Comments The information contained in this document represents components of the legal health record. It is not the complete legal health record.[facility]
[2024-12-21 12:17] LABS: Anion Gap 18 (12-20); Blood Urea Nitrogen 40 mg/dL (9-16); Calcium 9.1 mg/dL (8.4-10.2); Carbon Dioxide 19 mmol/L (22-29); Chloride 103 mmol/L (96-108); Estimated Glomerular Filt Rate 16; Potassium 4.0 mmol/L (3.3-5.1); Sodium 136 mmol/L (135-145)
[2024-12-21 16:31] LABS: Appearance Urine Cloudy; Glucose Urine UA >=1000 mg/dL (Negative); PH 5.5 (5.0-9.0); Specific Gravity - Urine 1.020 (1.005-1.025); UMIC TRIGGER UA YES
== END 2024-12-21 09:11 | disposition home or self-care (01) ==
LOC: HO.HMGCLDS 09:10
PROVIDERS: PCP Internal Medicine; Visit Provider Internal Medicine
DX: E11.9 Type 2 diabetes mellitus without complications (principal); N17.9 Acute kidney failure, unspecified; G31.84 Mild cognitive impairment of uncertain or unknown etiology; N39.0 Urinary tract infection, site not specified
CPT/HCPCS: 36415; 80048; 81001; 99212

== ENCOUNTER 2024-12-21 13:27 | Outpatient (AMB) | payer MEDICARE, SELFPAY ==
[2024-12-21 13:53] VITALS: BP 94/54; PULSE 77; RESP 16; TEMP 36.4; O2SAT 99; BMI 19.1
--- NOTE | 2024-12-21 13:53 | A.OFFPC_ITS ---
Vital Signs 12/21/24 13:53 Height 5 ft 5 in Weight 115 lb BMI 19.1 BP 94/54 L Blood Pressure Location Lt brachial Position Sitting Respiration 16 Pulse 77 Pulse Source Pulse Oximeter Temp 97.6 F Temp Source Oral Pulse Oximetry (%) 99 Oxygen Delivery Method Room Air Intake Visit Reasons: Follow up on BP Intake Note: Pt is here today for a follow up after labs, u/s and low BP. Pt sister states that pt has been feeling very weak and legs get very shaky. Allergies peanuts Allergy (Severe, Uncoded 12/21/24 13:59) anaphylaxis Medication List - Last Reconciled 12/21/24 by Elana Rubio MD amlodipine 2.5 mg PO DAILY blood sugar diagnostic ([employer] Ultra Test strips) Test once a day blood-glucose meter ([employer] Ultra2 Meter) As directed cholecalciferol (vitamin D3) 50 mcg PO DAILY citalopram 20 mg PO DAILY donepezil 10 mg PO DAILY fluorouracil 5% appl topical hydrocortisone 2.5% appl topical imiquimod 5% topical Jardiance (empagliflozin) 25 mg PO DAILY NS lancets ([employer] Delica Plus Lancet) Test once a day lisinopril 10 mg PO DAILY Held on 12/20/24. Instructions: Doctor's Order memantine 14 mg PO DAILY MDD 14mg metformin ER 1,000 mg (2 x 500 mg) PO .qd nitrofurantoin monohyd/m-cryst 100 mg (Macrobid) 100 mg PO Q12H 7 days prednisone 1 mg PO DAILY simvastatin 10 mg PO BEDTIME Tobacco use date assessed: 12/19/24 Dental Screening Dental Screen Date: 12/19/24 HPI Follow up on BP HPI Details Patient presents for the follow-up of hypotension. She stopped taking lisinopril 3 days ago but reports persistent lightheadedness when standing up and low blood pressure readings at home down to 90/60. She denies any recent falls. Patient has been trying to increase fluid intake but because of impaired memory she has been forgetting. Patient reports decrease appetite and food intake but fasting blood glucose has been between 130-150. Patient reports increased frequency of urination but denies abdominal pain fever chills or dysuria. [facility] Medical History Annual physical exam Anxiety Cognitive impairment, mild, so stated CKD (chronic kidney disease) stage 3, GFR 30-59 ml/min DM type 2 (diabetes mellitus, type 2) Hyperlipidemia HTN (hypertension) Squamous cell carcinoma of right lower leg Diabetes mellitus Skin growth Surgical History History of squamous cell carcinoma excision (08/13/18) History of excision of mass (02/20/15) History of hand surgery History of tonsillectomy and adenoidectomy History of excision of lesion (05/30/09) History of excision of lesion (05/03/18) Status post cataract surgery Family History Mother No problems noted. Father No problems noted. Daughter History of breast cancer Paternal Grandmother Breast cancer Social History Household Members: Family and None Housing: House Alcohol intake: current Alcohol intake frequency: a few times a week Patient Tobacco Use Status: Former Tobacco user e-Cigarette/Vaping Use: Never Used service: No Current occupational status: retired Cognitive needs: No Hearing needs: No Vision needs: Yes Questionnaire Thrive Questionnaire Date Thrive assessed: 11/10/24 I am a: Patient What is your living situation today?: I have a steady place to live Within the past 12 months, did the food you bought not last and you didn't have the money to get more?: Never true Within the past 12 months, did you worry whether your food would run out before you got money to buy more?: Never true Do you have trouble paying for medicines?: Yes Do you have trouble getting transportation to medical appointments?: No Do you have trouble paying your heating and electricity bill?: No Do you have trouble taking care of your child, family member or friend?: No Do you have trouble with day-to-day activities such as bathing, preparing meals, shopping, managing finances, etc.?: I choose not to answer this question Are you currently unemployed and looking for a job?: No Are you interested in more education?: No Please select the resources that you would like help with: None Currently or been in a relationship where the following occur: I choose not to answer THRIVE Score: 0 ANAYELI-7 AMB Questionnaire ANAYELI-7 Date ANAYELI - 7 assessed: 11/10/24 Source: Developed by Drs. Trey Dolan, Tova Pereira, Cholo Damon and colleagues, with an educational alvaro from [employer]. Review of Systems Const All systems reviewed & are unremarkable except as noted in HPI and below Eyes Reports no additional complaints ENT Reports no additional complaints Resp Reports no additional complaints GI Reports no additional complaints Reports no additional complaints Physical exam (Primary Care) Vital Signs: Last Vital Signs Temp 97.6 F 12/21/24 13:53 Pulse 77 12/21/24 13:53 Resp 16 12/21/24 13:53 BP 94/54 L 12/21/24 13:53 Pulse Ox 99 12/21/24 13:53 Oxygen Delivery Method Room Air 12/21/24 13:53 BMI result Body Mass Index 19.1 Tobacco/Smoking Status: Tobacco use Status Tobacco use date assessed 12/19/24 12/21/24 14:00 Patient Tobacco Use Status Former Tobacco user 12/21/24 14:00 e-Cigarette/Vaping Use Never Used 12/21/24 14:00 Thrive Assessment: Date of Thrive Assessment Date Thrive assessed 11/10/24 12/21/24 14:00 Currently or been in a relationship where the following occur: I choose not to answer Const General: no acute distress HENMT Head: Yes normal to inspection Eyes General: appearance normal, both eyes and all related structures Resp Effort & Inspection: normal respiratory effort Auscultation: clear to auscultation bilaterally Cardio Rhythm: regular rhythm Heart sounds: S1 normal heart sound present and S2 normal heart sound present GI Inspection: Yes normal to inspection Palpation (GI): Soft to palpation Percussion: Yes normal to percussion Auscultation: normal bowel sounds Extrem General: Yes no clubbing, cyanosis or edema Coding Level of Care Code Est Pt Level 4 (77093) Diagnoses Type 2 diabetes mellitus without complication, without long-term current use of insulin E11.9 Diabetes mellitus complication status: without complication Diabetes mellitus terminal block assembler insulin use: without assisted use Acute renal failure N17.9 Cognitive impairment, mild, so stated G31.84 UTI (urinary tract infection) N39.0 Assessment & Plan Assessment & Plan (1) DM type 2 (diabetes mellitus, type 2): Code(s): E11.9 - Type 2 diabetes mellitus without complications Category: Medical Qualifiers: Diabetes mellitus complication status: without complication Diabetes mellitus assisted insulin use: without assisted use Qualified Code(s): E11.9 - Type 2 diabetes mellitus without complications Plan: Because of worsening renal function and dehydration Jardiance will be held and glipizide 2.5 mg daily will be started instead. Patient's sister will continue to monitor fasting blood glucose and report the readings. (2) Acute renal failure: Comment: Normal renal ultrasound 12/2024, Code(s): N17.9 - Acute kidney failure, unspecified Category: Medical Plan: Patient had normal renal ultrasound. Renal function persistently low despite stopping lisinopril 3 days ago. Patient was advised to stop amlodipine and Jardiance increase fluid intake and repeat basic metabolic panel in 1 week. For any worsening symptoms she was advised to go to the ER (3) Cognitive impairment, mild, so stated: Comment: Established with Neurology on donepezil and Namenda, started on citalopram for anxiety Code(s): G31.84 - Mild cognitive impairment of uncertain or unknown etiology Category: Medical Plan: Continue current medication follow-up with Neurology (4) UTI (urinary tract infection): Code(s): N39.0 - Urinary tract infection, site not specified Category: Medical Plan: Macrobid is prescribed for presumed UTI pending urine culture Orders: Orders Basic Metabolic Panel 1 Week E11.9 - Type 2 diabetes mellitus without complications, N17.9 - Acute kidney failure, unspecified Medications: New nitrofurantoin monohyd/m-cryst 100 mg (Macrobid) must administer with a meal/food 100 mg PO Q12H 14 caps 0RF 7 days glipizide ER 2.5 mg PO DAILY 30 tabs 2RF Discontinued amlodipine Discontinued Reason: Doctor's Order 2.5 mg PO DAILY 90 tabs 3RF On Hold Jardiance (empagliflozin) Hold Comment: Doctor's Order 25 mg PO DAILY 90 tabs 0RF NS
== END 2024-12-21 15:25 | disposition home or self-care (01) ==
LOC: HO.HMCC 13:28
PROVIDERS: PCP Internal Medicine; Visit Provider Internal Medicine
DX: E11.9 Type 2 diabetes mellitus without complications (principal); N17.9 Acute kidney failure, unspecified; G31.84 Mild cognitive impairment of uncertain or unknown etiology; N39.0 Urinary tract infection, site not specified

== ENCOUNTER 2024-12-29 09:08 | Outpatient (REF) | payer MEDICARE, SELFPAY ==
--- OUTSIDE RECORDS SUMMARY | 2024-12-29 09:33 | XMS_ITS | Clinical Summary ---
Author Organization [facility] Address [address] [place] [address] Phone Care Team Providers Care Patient Care Director Name Role Phone Elana Rubio MD Primary Care Provider [phone] Allergies Active Allergy Reactions Criticality Noted Date [...] file Insurance MEDICARE PART A & B [employer] MEDEX SUPPLEMENT MEDICARE PART A & B [employer] MEDEX SUPPLEMENT MEDICARE PART A & B [employer] SUPPLEMENT MEDICARE PART A & B [employer] MEDEX SUPPLEMENT MEDICARE PART A & B Member Subscriber Plan / Payer (Ef fective 2009-Present) Name:Lili Pineda Member ID:[id number] Relation to Subscriber:Self Name:Lili Pineda Subscriber ID:[id number] Payer ID:[id number] Group ID:Not on file Type:Medicare Address: [employer] [facility].[address] [address] [facility] MEDEX SUPPLEMENT MEDICARE PART A & B [employer] MEDEX SUPPLEMENT Care Teams Patient Care Director Relationship Specialty Start Date End Date Elana Rubio MD [address] [place] [address] PCP - General Internal Medicine 06/19/23 Additional Source Comments The information contained in this document represents components of the legal health record. It is not the complete legal health record.[facility]
[2024-12-29 10:43] LABS: Anion Gap 15 (12-20); Blood Urea Nitrogen 30 mg/dL (9-16); Calcium 8.8 mg/dL (8.4-10.2); Carbon Dioxide 20 mmol/L (22-29); Chloride 101 mmol/L (96-108); Estimated Glomerular Filt Rate 21; Potassium 4.2 mmol/L (3.3-5.1); Sodium 132 mmol/L (135-145)
== END 2024-12-29 09:09 | disposition home or self-care (01) ==
LOC: HO.HMGCLDS 09:08
PROVIDERS: PCP Internal Medicine; Visit Provider Internal Medicine
DX: E11.9 Type 2 diabetes mellitus without complications (principal); N17.9 Acute kidney failure, unspecified
CPT/HCPCS: 36415; 80048

== ENCOUNTER 2025-01-09 09:28 | Outpatient (REF) | payer MEDICARE, SELFPAY ==
--- OUTSIDE RECORDS SUMMARY | 2025-01-09 10:14 | XMS_ITS | Clinical Summary ---
Author Organization [facility] Address [address] [place] [address] Phone Care Team Providers Care Recep Name Role Phone Elana Rubio MD Primary Care Provider [phone] Allergies Active Allergy Reactions Criticality Noted Date [...] file Insurance MEDICARE PART A & B [employer] MEDEX SUPPLEMENT MEDICARE PART A & B [employer] MEDEX SUPPLEMENT MEDICARE PART A & B [employer] SUPPLEMENT MEDICARE PART A & B [employer] MEDEX SUPPLEMENT MEDICARE PART A & B Member Subscriber Plan / Payer (Ef fective 2009-Present) Name:Lili Pineda Member ID:[id number] Relation to Subscriber:Self Name:Lili Pineda Subscriber ID:[id number] Payer ID:[id number] Group ID:Not on file Type:Medicare Address: [employer] [facility].[address] [address] [facility] MEDEX SUPPLEMENT MEDICARE PART A & B [employer] MEDEX SUPPLEMENT Care Teams Recep Relationship Specialty Start Date End Date Elana Rubio MD [address] [place] [address] PCP - General Internal Medicine 06/19/23 Additional Source Comments The information contained in this document represents components of the legal health record. It is not the complete legal health record.[facility]
[2025-01-09 13:34] LABS: MANUAL DIFF FLAG NO
[2025-01-09 13:43] LABS: Hematocrit 28.8 % (37.0-47.0); Hemoglobin 9.7 g/dl (12.0-16.0); Imm Gran Abs Auto 0.01 X10*3/uL (0.00-0.03); Imm Gran Pct Auto 0.2 % (0.0-0.4); Lymphocytes Absolute Auto 2.1 X10*3/uL (1.2-4.9); Mean Corpuscular HGB Conc 33.7 g/dl (31.0-35.0); Mean Corpuscular Hemoglobin 32.6 pg (27.0-33.0); Mean Corpuscular Volume 96.6 fL (80.0-98.0); NRBC Abs Auto 0.000 X10*3/uL (0.0-0.012); NRBC Pct Auto 0.0 /100WBC (0.0-0.2); Platelet Count 183 X10*3/uL (160-400); Red Blood Count 2.98 X10*6/uL (4.20-5.50); White Blood Count 5.7 X10*3/uL (4.8-10.8)
[2025-01-09 13:52] LABS: Alanine Aminotransferase 10 U/L (0-31); Albumin Level 4.2 g/dL (3.5-5.0); Alkaline Phosphatase 51 U/L (39-117); Anion Gap 13 (12-20); Aspartate Amino Transferase 18 U/L (5-31); Blood Urea Nitrogen 25 mg/dL (9-16); Calcium 9.3 mg/dL (8.4-10.2); Carbon Dioxide 23 mmol/L (22-29); Chloride 105 mmol/L (96-108); Estimated Glomerular Filt Rate 26; Potassium 5.2 mmol/L (3.3-5.1); Sodium 136 mmol/L (135-145); Total Protein 6.3 g/dL (6.5-8.0)
[2025-01-09 13:58] LABS: Microalbum/Creatinine Ratio Ur 29.8 ug/mg cr (<30)
[2025-01-09 16:13] LABS: Hemoglobin A1C 128.6330 umol/L; Total Hemoglobin (HGBA1C) 2590.8438 umol/L
[2025-01-12 14:36] LABS: Iron 66 mcg/dL (30-160); Percent Iron Saturation 33 % (15-50); Total Iron Binding Capacity 201 mcg/dL (228-428); Unsaturated Iron Binding 135 ug/dL
== END 2025-01-09 09:29 | disposition home or self-care (01) ==
LOC: HO.HMGCLDS 09:28
PROVIDERS: PCP Internal Medicine; Visit Provider Internal Medicine
DX: E11.22 Type 2 diabetes mellitus with diabetic chronic kidney disease (principal); N18.30 Chronic kidney disease, stage 3 unspecified
CPT/HCPCS: 36415; 80053; 82043; 82570; 83036; 83540; 85025

== ENCOUNTER 2025-01-12 13:28 | Outpatient (AMB) | payer MEDICARE, SELFPAY ==
[2025-01-12 13:30] VITALS: BP 114/62; PULSE 66; RESP 16; TEMP 36.6; O2SAT 99; BMI 19.8
--- NOTE | 2025-01-12 13:30 | MHC.PC.OV ---
Vital Signs 01/12/25 13:30 Height 5 ft 5 in Weight 119 lb BMI 19.8 BP 114/62 Blood Pressure Location Lt brachial Position Sitting Respiration 16 Pulse 66 Pulse Source Pulse Oximeter Temp 97.9 F Temp Source Oral Pulse Oximetry (%) 99 Oxygen Delivery Method Room Air Intake Visit Reasons: 3 week follow up per LOVELY Intake Note: Pt is here today for 3 weeks follow up visit. Allergies peanuts Allergy (Severe, Uncoded 01/12/25 13:35) anaphylaxis Medication List - Last Reconciled 01/12/25 by Elana Rubio MD blood sugar diagnostic ([employer] Ultra Test strips) Test once a day blood-glucose meter ([employer] Ultra2 Meter) As directed cholecalciferol (vitamin D3) 50 mcg PO DAILY citalopram 20 mg PO DAILY donepezil 10 mg PO DAILY fluorouracil 5% appl topical glipizide ER 2.5 mg PO DAILY hydrocortisone 2.5% appl topical imiquimod 5% topical Jardiance (empagliflozin) 25 mg PO DAILY NS Held on 12/21/24. Instructions: Doctor's Order lancets ([employer] Delica Plus Lancet) Test once a day lisinopril 10 mg PO DAILY Held on 12/20/24. Instructions: Doctor's Order memantine 14 mg PO DAILY MDD 14mg metformin ER 1,000 mg (2 x 500 mg) PO .qd prednisone 1 mg PO DAILY simvastatin 10 mg PO BEDTIME Tobacco use date assessed: 01/12/25 Fall risk assessment: 1 Fall in past year Last assessed Fall Risk: 01/12/25 Dental Screening Dental Screen Date: 12/19/24 HPI 3 week follow up per HPI Details Patient presents for the follow-up of acute on chronic kidney failure, poor p.o. intake and hypotension. Patient is feeling better since she has stopped taking lisinopril amlodipine and Jardiance. Her sister reports her fasting blood glucose between 100-120. Patient's appetite improved. she has been eating well-balanced diet. [facility] Medical History Annual physical exam Anxiety Cognitive impairment, mild, so stated CKD (chronic kidney disease) stage 3, GFR 30-59 ml/min DM type 2 (diabetes mellitus, type 2) Hyperlipidemia HTN (hypertension) Squamous cell carcinoma of right lower leg Diabetes mellitus Skin growth Surgical History History of squamous cell carcinoma excision (08/13/18) History of excision of mass (02/20/15) History of hand surgery History of tonsillectomy and adenoidectomy History of excision of lesion (05/30/09) History of excision of lesion (05/03/18) Status post cataract surgery Family History Mother No problems noted. Father No problems noted. Daughter History of breast cancer Paternal Grandmother Breast cancer Social History Household Members: Family and None Housing: House Alcohol intake: current Alcohol intake frequency: a few times a week Patient Tobacco Use Status: Former Tobacco user e-Cigarette/Vaping Use: Never Used service: No Current occupational status: retired Cognitive needs: No Hearing needs: No Vision needs: Yes Questionnaire Thrive Questionnaire Date Thrive assessed: 11/10/24 I am a: Patient What is your living situation today?: I have a steady place to live Within the past 12 months, did the food you bought not last and you didn't have the money to get more?: Never true Within the past 12 months, did you worry whether your food would run out before you got money to buy more?: Never true Do you have trouble paying for medicines?: Yes Do you have trouble getting transportation to medical appointments?: No Do you have trouble paying your heating and electricity bill?: No Do you have trouble taking care of your child, family member or friend?: No Do you have trouble with day-to-day activities such as bathing, preparing meals, shopping, managing finances, etc.?: I choose not to answer this question Are you currently unemployed and looking for a job?: No Are you interested in more education?: No Please select the resources that you would like help with: None Currently or been in a relationship where the following occur: I choose not to answer THRIVE Score: 0 ANAYELI-7 AMB Questionnaire ANAYELI-7 Date ANAYELI - 7 assessed: 11/10/24 Source: Developed by Drs. Trey Dolan, Tova B.W. Cholo Pereira and colleagues, with an educational alvaro from [employer]. Review of Systems Const All systems reviewed & are unremarkable except as noted in HPI and below Eyes Reports no additional complaints ENT Reports no additional complaints Card Reports no additional complaints Resp Reports no additional complaints GI Reports no additional complaints Reports no additional complaints Physical exam (Primary Care) Vital Signs: Last Vital Signs Temp 97.9 F 01/12/25 13:30 Pulse 66 01/12/25 13:30 Resp 16 01/12/25 13:30 BP 114/62 01/12/25 13:30 Pulse Ox 99 01/12/25 13:30 Oxygen Delivery Method Room Air 01/12/25 13:30 BMI result Body Mass Index 19.8 Tobacco/Smoking Status: Tobacco use Status Tobacco use date assessed 01/12/25 01/12/25 13:39 Patient Tobacco Use Status Former Tobacco user 01/12/25 13:30 e-Cigarette/Vaping Use Never Used 01/12/25 13:30 Thrive Assessment: Date of Thrive Assessment Date Thrive assessed 11/10/24 01/12/25 13:30 Currently or been in a relationship where the following occur: I choose not to answer Const General: no acute distress HENMT Head: Yes normal to inspection Mouth: Normal oral and palatal mucosa present Throat: Yes posterior oropharynx normal Eyes General: appearance normal, both eyes and all related structures Neck Neck: Yes no lymphadenopathy and Yes supple Resp Effort & Inspection: normal respiratory effort Auscultation: clear to auscultation bilaterally Cardio Rhythm: regular rhythm Heart sounds: S1 normal heart sound present and S2 normal heart sound present GI Inspection: Yes normal to inspection Palpation (GI): Soft to palpation Percussion: Yes normal to percussion Auscultation: normal bowel sounds Coding Level of Care Code Est Pt Level 4 (13517) Diagnoses CKD (chronic kidney disease) stage 3, GFR 30-59 ml/min N18.30 Type 2 diabetes mellitus without complication, without long-term current use of insulin E11.9 Diabetes mellitus detention insulin use: without equipment operator intermodal yard use Diabetes mellitus complication status: without complication Anemia D64.9 HTN (hypertension) I10 Assessment & Plan Assessment & Plan (1) CKD (chronic kidney disease) stage 3, GFR 30-59 ml/min: Code(s): N18.30 - Chronic kidney disease, stage 3 unspecified Category: Medical Plan: Improving renal function. Patient was advised to avoid nephrotoxins continue increase fluid intake (2) DM type 2 (diabetes mellitus, type 2): Code(s): E11.9 - Type 2 diabetes mellitus without complications Category: Medical Qualifiers: Diabetes mellitus detention insulin use: without equipment operator intermodal yard use Diabetes mellitus complication status: without complication Qualified Code(s): E11.9 - Type 2 diabetes mellitus without complications Plan: Continue ADA diet metformin and glipizide. Patient's sister will continue to monitor patient's blood glucose regularly, ADA diet discussed with the patient and her sister. (3) Anemia: Code(s): D64.9 - Anemia, unspecified Category: Medical Plan: Check iron studies and B12 we will monitor CBC (4) HTN (hypertension): Code(s): I10 - Essential (primary) hypertension Category: Medical Plan: Off blood pressure medication, will monitor blood pressure, follow-up in 6 weeks Orders: Orders IRON PROFILE Today N17.9 - Acute kidney failure, unspecified, N18.30 - Chronic kidney disease, stage 3 unspecified Vitamin B12 and Folate Today N17.9 - Acute kidney failure, unspecified, N18.30 - Chronic kidney disease, stage 3 unspecified
--- OUTSIDE RECORDS SUMMARY | 2025-01-12 14:12 | XMS_ITS | Encounter Summary ---
Author Organization [facility] Address [address] [place] [phone] Phone Care Team Providers Care Finance Business Manager Name Role Phone Elana Rubio MD Primary Care Provider [phone] Encounter Details Date Type Department Care Team (Late st Contact Info) Description 08/14/2023 Procedure Pass OR Admitting Dept - Virtual Department [address] [place] [address] Social History Tobacco Use Types Packs/Day Years Used Date Smoking Tobacco: Former Cigarettes 1 10 1 963 - 1973 Smokeless Tobacco: Never Alcohol Use Standard Drinks/Week Comments Yes 0 [...] on file Sexual Orientation Not on file documented as of this encounter Plan of Treatment Not on file documented as of this encounter Visit Diagnoses Not on filedocumented in this encounter Care Teams Finance Business Manager Relationship Specialty Start Date End Date Elana Rubio MD [address] [place] [address] PCP - General Internal Medicine 06/19/23 documented as of this encounter Additional Source Comments The information contained in this document represents components of the legal health record. It is not the complete legal health record.[facility]
--- OUTSIDE RECORDS SUMMARY | 2025-01-12 14:12 | XMS_ITS | Encounter Summary ---
Author Organization [facility] Address [address] [place] [phone] Phone Care Team Providers Care Director Of Retail Operations Name Role Phone Elana Rubio MD Primary Care Provider [phone] Encounter Details Date Type Department Care Team (Late st Contact Info) Description 07/31/2023 Procedure Pass OR Admitting Dept - Virtual Department [address] [place] [address] Social History Tobacco Use Types Packs/Day Years [...] on filedocumented in this encounter Care Teams Director Of Retail Operations Relationship Specialty Start Date End Date Elana Rubio MD [address] [place] [address] PCP - General Internal Medicine 06/19/23 documented as of this encounter Additional Source Comments The information contained in this document represents components of the legal health record. It is not the complete legal health record.[facility]
--- OUTSIDE RECORDS SUMMARY | 2025-01-12 14:12 | XMS_ITS | Clinical Summary ---
Author Organization [facility] Address [address] [place] [address] Phone Care Team Providers Care Farmworker Cranberry Name Role Phone Elana Rubio MD Primary Care Provider [phone] Allergies Active Allergy Reactions Criticality Noted Date [...] 2024 03/19/2023, 06/03/2022, 03/19/2021, Additional history exists INFLUENZA VACCINE (#1) 2024 HEPATITIS A VACCINES Aged Out No long [...] file Insurance MEDICARE PART A & B [employer] SUPPLEMENT MEDICARE PART A & B [employer] MEDEX SUPPLEMENT MEDICARE PART A & B [employer] MEDEX SUPPLEMENT MEDICARE PART A & B [employer] MEDEX SUPPLEMENT MEDICARE PART A & B [facility] MEDEX SUPPLEMENT MEDICARE PART A & B [employer] MEDEX SUPPLEMENT Care Teams Farmworker Cranberry Relationship Specialty Start Date End Date Elana Rubio MD [address] [place] [address] PCP - General Internal Medicine 06/19/23 Additional Source Comments The information contained in this document represents components of the legal health record. It is not the complete legal health record.[facility]
== END 2025-01-12 14:25 | disposition home or self-care (01) ==
LOC: HO.HMCC 13:29
PROVIDERS: PCP Internal Medicine; Visit Provider Internal Medicine
DX: N18.30 Chronic kidney disease, stage 3 unspecified (principal); E11.9 Type 2 diabetes mellitus without complications; D64.9 Anemia, unspecified; I10 Essential (primary) hypertension

== ENCOUNTER → 2025-01-12 13:28 | Outpatient (BNVA) | payer MEDICARE, SELFPAY | PROVIDERS: PCP Internal Medicine; Visit Provider Internal Medicine | DX: I12.9 Hypertensive chronic kidney disease with stage 1 through stage 4 chronic kidney disease, or unspecified chronic kidney disease (principal); E11.22 Type 2 diabetes mellitus with diabetic chronic kidney disease; N18.30 Chronic kidney disease, stage 3 unspecified; D64.9 Anemia, unspecified | CPT/HCPCS: 99212 ==

== ENCOUNTER 2025-02-20 08:59 | Outpatient (REF) | payer MEDICARE, SELFPAY ==
--- OUTSIDE RECORDS SUMMARY | 2025-02-20 10:00 | XMS_ITS | Clinical Summary ---
Author Organization [facility] Address [address] [place] [phone] Phone Care Team Providers Care Rattan Worker Name Role Phone Elana Rubio MD Primary Care Provider [phone] Allergies Active Allergy Reactions Criticality Noted Date [...] VACCINE (1 - 1-dose 75+ series) 2016 INFLUENZA VACCINE (#1) 2024 COVID-19 VACCINE ( season) 2025 03/19/2023, 06/03/2022, 03/19/2021, Additional history exists HEPATITIS [...] file Insurance MEDICARE PART A & B [employer] SUPPLEMENT MEDICARE PART A & B [employer] MEDEX SUPPLEMENT MEDICARE PART A & B [employer] MEDEX SUPPLEMENT MEDICARE PART A & B [employer] MEDEX SUPPLEMENT MEDICARE PART A & B [facility] MEDEX SUPPLEMENT MEDICARE PART A & B [employer] MEDEX SUPPLEMENT Care Teams Rattan Worker Relationship Specialty Start Date End Date Elana Rubio MD [address] [facility] [place] [address] PCP - General Internal Medicine 06/19/23 Additional Source Comments The information contained in this document represents components of the legal health record. It is not the complete legal health record.[facility]
--- OUTSIDE RECORDS SUMMARY | 2025-02-20 10:00 | XMS_ITS | Encounter Summary ---
Author Organization [facility] Address [address] [place] [address] Phone Care Team Providers Care Door Clamper Name Role Phone Elana Rubio MD Primary Care Provider [phone] Encounter Details Date Type Department Care Team (Late st Contact Info) Description 07/31/2023 Procedure Pass OR Admitting Dept - Virtual Department [address] [place] [address] Social History Tobacco Use Types Packs/Day Years [...] on filedocumented in this encounter Care Teams Door Clamper Relationship Specialty Start Date End Date Elana Rubio MD [address] [place] [address] PCP - General Internal Medicine 06/19/23 documented as of this encounter Additional Source Comments The information contained in this document represents components of the legal health record. It is not the complete legal health record.[facility]
--- OUTSIDE RECORDS SUMMARY | 2025-02-20 10:00 | XMS_ITS | Encounter Summary ---
Author Organization [facility] Address [address] [place] [address] Phone Care Team Providers Care Edge Plugger Name Role Phone Elana Rubio MD Primary Care Provider [phone] Encounter Details Date Type Department Care Team (Late st Contact Info) Description 08/14/2023 Procedure Pass OR Admitting Dept - Virtual Department [address] [place] [address] Social History Tobacco Use Types Packs/Day Years [...] on filedocumented in this encounter Care Teams Edge Plugger Relationship Specialty Start Date End Date Elana Rubio MD 1960 [facility] [place] [address] PCP - General Internal Medicine 06/19/23 documented as of this encounter Additional Source Comments The information contained in this document represents components of the legal health record. It is not the complete legal health record.[facility]
[2025-02-20 13:32] LABS: MANUAL DIFF FLAG NO
[2025-02-20 13:39] LABS: Hematocrit 26.2 % (37.0-47.0); Hemoglobin 8.7 g/dl (12.0-16.0); Imm Gran Abs Auto 0.02 X10*3/uL (0.00-0.03); Imm Gran Pct Auto 0.3 % (0.0-0.4); Lymphocytes Absolute Auto 2.0 X10*3/uL (1.2-4.9); Mean Corpuscular HGB Conc 33.2 g/dl (31.0-35.0); Mean Corpuscular Hemoglobin 32.6 pg (27.0-33.0); Mean Corpuscular Volume 98.1 fL (80.0-98.0); NRBC Abs Auto 0.000 X10*3/uL (0.0-0.012); NRBC Pct Auto 0.0 /100WBC (0.0-0.2); Platelet Count 209 X10*3/uL (160-400); Red Blood Count 2.67 X10*6/uL (4.20-5.50); White Blood Count 6.3 X10*3/uL (4.8-10.8)
[2025-02-20 14:06] LABS: Alanine Aminotransferase 12 U/L (0-31); Albumin Level 4.4 g/dL (3.5-5.0); Alkaline Phosphatase 46 U/L (39-117); Anion Gap 12 (12-20); Aspartate Amino Transferase 19 U/L (5-31); Blood Urea Nitrogen 16 mg/dL (9-16); Calcium 9.4 mg/dL (8.4-10.2); Carbon Dioxide 26 mmol/L (22-29); Chloride 104 mmol/L (96-108); Estimated Glomerular Filt Rate 30; Potassium 4.4 mmol/L (3.3-5.1); Sodium 138 mmol/L (135-145); Total Protein 6.6 g/dL (6.5-8.0)
[2025-02-24 16:54] LABS: Vitamin D 25-OH, D2 <4 ng/mL; Vitamin D 25-OH, D3 81 ng/mL; Vitamin D 25-OH, Total 81 ng/mL (30-100)
== END 2025-02-20 09:00 | disposition home or self-care (01) ==
LOC: HO.HMGCLDS 08:59
PROVIDERS: Student in an Organized Health Care Education/Training Program; PCP Internal Medicine; Visit Provider Internal Medicine
DX: M35.3 Polymyalgia rheumatica (principal); E55.9 Vitamin D deficiency, unspecified
CPT/HCPCS: 36415; 80053; 82306; 85025; 85652; 86140

== ENCOUNTER 2025-02-23 12:56 | Outpatient (AMB) | payer MEDICARE, SELFPAY ==
[2025-02-23 12:58] VITALS: BP 108/64; PULSE 65; RESP 17; TEMP 36.4; O2SAT 96; BMI 18.6
--- NOTE | 2025-02-23 12:58 | MHC.PC.OV ---
Vital Signs 02/23/25 12:58 Height 5 ft 5 in Weight 111 lb 9 oz BMI 18.6 BP 108/64 Blood Pressure Location Rt brachial Position Sitting Respiration 17 Pulse 65 Pulse Source Pulse Oximeter Temp 97.6 F Temp Source Oral Pulse Oximetry (%) 96 Oxygen Delivery Method Room Air Intake Visit Reasons: 6week follow up Intake Note: Pt is here today for 6 weeks follow up visit. Allergies peanuts Allergy (Severe, Uncoded 02/23/25 12:59) anaphylaxis Medication List - Last Reconciled 02/23/25 by Elana Rubio MD blood sugar diagnostic ([employer] Ultra Test strips) Test once a day blood-glucose meter ([employer] Ultra2 Meter) As directed cholecalciferol (vitamin D3) 50 mcg PO DAILY citalopram 20 mg PO DAILY donepezil 10 mg PO DAILY fluorouracil 5% appl topical glipizide ER 2.5 mg PO DAILY hydrocortisone 2.5% appl topical imiquimod 5% topical Jardiance (empagliflozin) 25 mg PO DAILY NS Held on 12/21/24. Instructions: Doctor's Order lancets ([employer] Delica Plus Lancet) Test once a day lisinopril 10 mg PO DAILY Held on 12/20/24. Instructions: Doctor's Order memantine 14 mg PO DAILY MDD 14mg metformin ER 1,000 mg (2 x 500 mg) PO .qd prednisone 1 mg PO DAILY simvastatin 10 mg PO BEDTIME Tobacco use date assessed: 02/23/25 Fall risk assessment: 1 Fall in past year Last assessed Fall Risk: 02/23/25 Dental Screening Dental Screen Date: 12/19/24 HPI 6week follow up HPI Details Patient presents for the follow-up of type 2 diabetes and hypotension. Patient reports stable blood glucose readings between 100-130 in the morning. She is feeling better since she stopped taking lisinopril and Jardiance. [facility] Medical History Annual physical exam Anxiety Cognitive impairment, mild, so stated CKD (chronic kidney disease) stage 3, GFR 30-59 ml/min DM type 2 (diabetes mellitus, type 2) Hyperlipidemia HTN (hypertension) Squamous cell carcinoma of right lower leg Diabetes mellitus Skin growth Surgical History History of squamous cell carcinoma excision (08/13/18) History of excision of mass (02/20/15) History of hand surgery History of tonsillectomy and adenoidectomy History of excision of lesion (05/30/09) History of excision of lesion (05/03/18) Status post cataract surgery Family History Mother No problems noted. Father No problems noted. Daughter History of breast cancer Paternal Grandmother Breast cancer Social History Household Members: Family and None Housing: House Alcohol intake: current Alcohol intake frequency: a few times a week Patient Tobacco Use Status: Former Tobacco user e-Cigarette/Vaping Use: Never Used service: No Current occupational status: retired Cognitive needs: No Hearing needs: No Vision needs: Yes Questionnaire PHQ-9 Over the last 2 weeks, how often have you been bothered by any of the following problems? 1. Little interest or pleasure in doing things: not at all 2. Feeling down, depressed, or hopeless: not at all 3. Trouble falling or staying asleep, or sleeping too much: not at all 4. Feeling tired or having little energy: not at all 5. Poor appetite or overeating: not at all 6. Feeling bad about yourself - or that you are a failure or have let yourself or your family down: not at all 7. Trouble concentrating on things, such as reading the newspaper or watching television: not at all 8. Moving or speaking so slowly that other people could have noticed. Or the opposite - being so fidgety or restless that you have been moving around a lot more than usual: not at all 9. Thoughts that you would be better off or of hurting yourself in some way: not at all Total score: 0 Depression Screening Interpretation: Negative Depression Screening Done: Yes Source: Developed by Drs. Trey Dolan, Tova Pereira, Cholo Damon and colleagues, with an educational alvaro from [employer] Thrive Questionnaire Date Thrive assessed: 11/10/24 I am a: Patient What is your living situation today?: I have a steady place to live Within the past 12 months, did the food you bought not last and you didn't have the money to get more?: Never true Within the past 12 months, did you worry whether your food would run out before you got money to buy more?: Never true Do you have trouble paying for medicines?: Yes Do you have trouble getting transportation to medical appointments?: No Do you have trouble paying your heating and electricity bill?: No Do you have trouble taking care of your child, family member or friend?: No Do you have trouble with day-to-day activities such as bathing, preparing meals, shopping, managing finances, etc.?: I choose not to answer this question Are you currently unemployed and looking for a job?: No Are you interested in more education?: No Please select the resources that you would like help with: None Currently or been in a relationship where the following occur: I choose not to answer THRIVE Score: 0 ANAYELI-7 AMB Questionnaire ANAYELI-7 Date ANAYELI - 7 assessed: 11/10/24 Feeling nervous, anxious, or on edge: 0 = Not at all Not being able to stop or control worryin = Not at all Worrying too much about different things: 0 = Not at all Trouble relaxin = Not at all Being so restless that it is hard to sit still: 0 = Not at all Becoming easily annoyed or irritable: 0 = Not at all Feeling afraid as if something awful might happen: 0 = Not at all Total ANAYELI-7 score (0-4 normal; 5-9 mild; 10-14 moderate; 15-21 severe): 0 Source: Developed by Drs. Trey Dolan, Tova Pereira, Cholo Damon and colleagues, with an educational alvaro from [employer]. Review of Systems Const All systems reviewed & are unremarkable except as noted in HPI and below ENT Reports no additional complaints Card Reports no additional complaints Resp Reports no additional complaints Reports no additional complaints Physical exam (Primary Care) Vital Signs: Last Vital Signs Temp 97.6 F 02/23/25 12:58 Pulse 65 02/23/25 12:58 Resp 17 02/23/25 12:58 BP 108/64 02/23/25 12:58 Pulse Ox 96 02/23/25 12:58 Oxygen Delivery Method Room Air 02/23/25 12:58 BMI result Body Mass Index 18.6 Tobacco/Smoking Status: Tobacco use Status Tobacco use date assessed 02/23/25 02/23/25 13:16 Patient Tobacco Use Status Former Tobacco user 02/23/25 12:59 e-Cigarette/Vaping Use Never Used 02/23/25 12:59 PHQ-9: PHQ-9 Score PHQ-9: Total score 0 02/23/25 14:02 Depression Screening Interpretation: Negative Thrive Assessment: Date of Thrive Assessment Date Thrive assessed 11/10/24 02/23/25 12:59 Currently or been in a relationship where the following occur: I choose not to answer Const General: no acute distress Eyes General: appearance normal, both eyes and all related structures Neck Neck: Yes supple Resp Effort & Inspection: normal respiratory effort Auscultation: clear to auscultation bilaterally Cardio Rhythm: regular rhythm Heart sounds: S1 normal heart sound present and S2 normal heart sound present GI Inspection: Yes normal to inspection Palpation (GI): Soft to palpation Percussion: Yes normal to percussion Auscultation: normal bowel sounds Extrem General: Yes no clubbing, cyanosis or edema Coding Level of Care Code Est Pt Level 4 (79452) Diagnoses Anemia D64.9 Hyperlipidemia E78.5 Type 2 diabetes mellitus without complication, without long-term current use of insulin E11.9 Diabetes mellitus complication status: without complication Diabetes mellitus assisted insulin use: without assisted use PMR (polymyalgia rheumatica) M35.3 Memory deficit R41.3 Assessment & Plan Assessment & Plan (1) Anemia: Comment: chronic disease, Normal iron studies Code(s): D64.9 - Anemia, unspecified Category: Medical Plan: For worsening anemia with normal iron studies, vitamin B12 level retic count LDH will be checked. patient will be referred to Hematology (2) Hyperlipidemia: Code(s): E78.5 - Hyperlipidemia, unspecified Category: Medical Plan: Continue statin (3) DM type 2 (diabetes mellitus, type 2): Code(s): E11.9 - Type 2 diabetes mellitus without complications Category: Medical Qualifiers: Diabetes mellitus complication status: without complication Diabetes mellitus terminal superintendent insulin use: without terminal superintendent use Qualified Code(s): E11.9 - Type 2 diabetes mellitus without complications Plan: A1c was 6.7 in December. Continue ADA diet metformin and glipizide. Patient will continue to monitor her fasting blood glucose (4) PMR (polymyalgia rheumatica): Comment: on Prednisone since 12/07 Unable to wean 05/2024. Kept on low dose prednisone 1mg Code(s): M35.3 - Polymyalgia rheumatica Category: Medical Plan: On 1 mg of prednisone established with rheumatology (5) Memory deficit: Comment: Established with Neurology Code(s): R41.3 - Other amnesia Category: Medical Plan: On donepezil Namenda and citalopram Orders: Orders Vitamin B12 and Folate Today D64.9 - Anemia, unspecified Complete Blood Count Man Dif Today D64.9 - Anemia, unspecified Comprehensive [place]. Panel Fast 1 Month E11.9 - Type 2 diabetes mellitus without complications, E78.5 - Hyperlipidemia, unspecified Hemoglobin A1c 1 Month E11.9 - Type 2 diabetes mellitus without complications, E78.5 - Hyperlipidemia, unspecified Complete Blood Count Man Dif 1 Month E11.9 - Type 2 diabetes mellitus without complications, E78.5 - Hyperlipidemia, unspecified Haptoglobin Today D64.9 - Anemia, unspecified IRON PROFILE Today D64.9 - Anemia, unspecified Immunofixation Pnl, Serum Today D64.9 - Anemia, unspecified Lactate Dehydrogenase Today D64.9 - Anemia, unspecified Reticulocyte Count Today D64.9 - Anemia, unspecified Referrals Hematology & Oncology Referral D64.9 - Anemia, unspecified
== END 2025-02-23 15:27 | disposition home or self-care (01) ==
LOC: HO.HMCC 12:57
PROVIDERS: PCP Internal Medicine; Visit Provider Internal Medicine
DX: D64.9 Anemia, unspecified (principal); E78.5 Hyperlipidemia, unspecified; E11.9 Type 2 diabetes mellitus without complications; M35.3 Polymyalgia rheumatica; R41.3 Other amnesia

== ENCOUNTER → 2025-02-23 12:56 | Outpatient (BNVA) | payer MEDICARE, SELFPAY | PROVIDERS: PCP Internal Medicine; Visit Provider Internal Medicine | DX: E11.9 Type 2 diabetes mellitus without complications (principal); I95.9 Hypotension, unspecified; D64.9 Anemia, unspecified; E78.5 Hyperlipidemia, unspecified; M35.3 Polymyalgia rheumatica; R41.3 Other amnesia | CPT/HCPCS: 96127; 99212 ==

== ENCOUNTER 2025-02-24 09:06 | Outpatient (REF) | payer MEDICARE, SELFPAY ==
--- OUTSIDE RECORDS SUMMARY | 2025-02-24 09:32 | XMS_ITS | Encounter Summary ---
Author Organization [facility] Address [address] [place] [address] Phone Care Team Providers Care Hydrogenation Operator Name Role Phone Elana Rubio MD Primary Care Provider [phone] Encounter Details Date Type Department Care Team (Late st Contact Info) Description 08/14/2023 Procedure Pass OR Admitting Dept - Virtual Department [address] [place] [address] Social History Tobacco Use Types Packs/Day Years [...] on filedocumented in this encounter Care Teams Hydrogenation Operator Relationship Specialty Start Date End Date Elana Rubio MD 1960 [facility] [place] [place] [address] PCP - General Internal Medicine 06/19/23 documented as of this encounter Additional Source Comments The information contained in this document represents components of the legal health record. It is not the complete legal health record.[facility]
--- OUTSIDE RECORDS SUMMARY | 2025-02-24 09:32 | XMS_ITS | Encounter Summary ---
Author Organization [facility] Address [address] [place] [address] Phone Care Team Providers Care Sfdc Consultant Name Role Phone Elana Rubio MD Primary Care Provider [phone] Encounter Details Date Type Department Care Team (Late st Contact Info) Description 07/31/2023 Procedure Pass OR Admitting Dept - Virtual Department [address] [place] [address] Social History Tobacco Use Types Packs/Day Years Used Date Smoking Tobacco: Former Cigarettes 1 10 1 963 - 1973 Smokeless Tobacco: Never Alcohol Use Standard Drinks/Week Comments Yes 0 (1 standard drink = 0.6 oz pur e alcohol) Education Answer Date Recorded Are you interested in more education? Not on hsarda e 06/19/2023 Are you concerned about learning? [...] on filedocumented in this encounter Care Teams Sfdc Consultant Relationship Specialty Start Date End Date Elana Rubio MD [address] [facility] [place] [address] PCP - General Internal Medicine 06/19/23 documented as of this encounter Additional Source Comments The information contained in this document represents components of the legal health record. It is not the complete legal health record.[facility]
--- OUTSIDE RECORDS SUMMARY | 2025-02-24 09:32 | XMS_ITS | Clinical Summary ---
Author Organization [facility] Address [address] [place] [address] Phone Care Team Providers Care Armored Vehicle Officer Name Role Phone Elana Rubio MD Primary Care Provider [phone] Allergies Active Allergy Reactions Criticality Noted Date [...] file Insurance MEDICARE PART A & B [employer] SUPPLEMENT MEDICARE PART A & B [employer] SUPPLEMENT MEDICARE PART A & B [employer] SUPPLEMENT MEDICARE PART A & B [employer] SUPPLEMENT MEDICARE PART A & B [facility] MEDEX SUPPLEMENT MEDICARE PART A & B [employer] MEDEX SUPPLEMENT Care Teams Armored Vehicle Officer Relationship Specialty Start Date End Date Elana Rubio MD [address] [place] [address] PCP - General Internal Medicine 06/19/23 Additional Source Comments The information contained in this document represents components of the legal health record. It is not the complete legal health record.[facility]
[2025-02-24 10:17] LABS: Baso%MD 0.6 %; Eos%MD 2.2 %; Hematocrit 28.9 % (37.0-47.0); Hemoglobin 9.3 g/dl (12.0-16.0); IG%MD 0.2 %; Lymph%MD 36.9 %; Mean Corpuscular HGB Conc 32.2 g/dl (31.0-35.0); Mean Corpuscular Hemoglobin 32.0 pg (27.0-33.0); Mean Corpuscular Volume 99.3 fL (80.0-98.0); Mono%MD 6.9 %; NRBC Abs Auto 0.000 X10*3/uL (0.0-0.012); NRBC Pct Auto 0.0 /100WBC (0.0-0.2); Neut%MD 53.2 %; Platelet Count 199 X10*3/uL (160-400); Red Blood Count 2.91 X10*6/uL (4.20-5.50); Reticulocytes Absolute 0.050 X10*6/uL (0.026-0.095); White Blood Count 5.3 X10*3/uL (4.8-10.8)
[2025-02-24 10:51] LABS: Iron 72 mcg/dL (30-160); Percent Iron Saturation 30 % (15-50); Total Iron Binding Capacity 242 mcg/dL (228-428); Unsaturated Iron Binding 170 ug/dL
[2025-02-24 11:27] LABS: Folate 13.4 ng/mL (> or = 4.0); Vitamin B12 518 pg/mL (200-900)
[2025-02-24 11:37] LABS: Band Neutrophils Percent 1 % (3-5); Basophils Abs Manual 0.1 X10*3/uL (0.0-0.2); Basophils Percent Manual 2 % (0-2); Eosinophils Absolute Manual 0.1 X10*3/uL (0.0-0.4); Eosinophils Percent Manual 2 % (0-4); Lymphocytes Absolute Manual 2.1 X10*3/uL (1.2-4.9); Lymphocytes Percent Manual 40 % (20-40); Monocytes Absolute Manual 0.1 X10*3/uL (0.1-1.2); Monocytes Percent Manual 2 % (2-11); Neutrophils Absolute Manual 2.9 X10*3/uL (2.0-8.3); Neutrophils Percent Manual 53 % (45-73)
[2025-02-24 11:38] LABS: Macrocytosis 1+ (5-14) /OIF; RBC Morphology NOTED
[2025-02-24 11:39] LABS: Acanthocytes 1+ (0-2) /OIF; Ovalocytes 1+ (5-14) /OIF
[2025-02-24 11:40] LABS: Large Platelet PRESENT
== END 2025-02-24 09:07 | disposition home or self-care (01) ==
LOC: HO.HMGCLDS 09:06
PROVIDERS: PCP Internal Medicine; Visit Provider Internal Medicine
DX: D64.9 Anemia, unspecified (principal)
CPT/HCPCS: 36415; 82607; 82746; 82784; 83010; 83540; 83615; 85007; 85027; 85045; 86334

== ENCOUNTER 2025-03-03 11:49 | Outpatient (AMB) | payer MEDICARE, SELFPAY ==
[2025-03-03 11:52] VITALS: BP 140/66; PULSE 63; O2SAT 100; BMI 19.2
--- NOTE | 2025-03-03 11:52 | A.OFFVIS_ITS ---
Vital Signs 03/03/25 11:52 Height 5 ft 5 in Weight 115 lb 8 oz BMI 19.2 BP 140/66 H Blood Pressure Location Rt brachial Position Sitting Pulse 63 Pulse Source Pulse Oximeter Pulse Oximetry (%) 100 Oxygen Delivery Method Room Air Intake Visit Reasons: 6 mo/PET results Intake Note: Follow up Numbness and tingling in both hands, Anxiety. PET CT results Accounting Reconciliation Clerk Required: No Accompanied by: Sister Allergies peanuts Allergy (Severe, Uncoded 03/03/25 11:52) anaphylaxis HPI Comments Details: 84y/o female comes for follow up of memory problems..SHe needs reminders to eat, shower, wash her hair , medications . she is accompanied by her sister who helps with history . she feels she is worse, confused with dates.MRI is nonspecific changes Citalopram 10 mg helped mildly with anxiety PET showed moderate to frequent amyloid plaques. she is managing with good support . History from initial visit-The memory issues became noticeable about 2 years ago and has worsened since then. It is mostly short term memory issues. she may have difficulty recalling details of events. she frequently misplaces things, forgot where she parked the car,difficulty with directions,difficulty remembering conversations,repeats questions , she needs reminders for medications etc. Her helps with finances. No changes in behavior, personality , denies hallucinations. she denies snoring or sleep issues. No h/o head injury, [facility] Medical History (Updated 03/03/25 @ 12:11 by Verona Lee MD) Alzheimer's dementia, late onset Annual physical exam Anxiety Cognitive impairment, mild, so stated CKD (chronic kidney disease) stage 3, GFR 30-59 ml/min DM type 2 (diabetes mellitus, type 2) Hyperlipidemia HTN (hypertension) Squamous cell carcinoma of right lower leg Diabetes mellitus Skin growth Surgical History History of squamous cell carcinoma excision (08/13/18) History of excision of mass (02/20/15) History of hand surgery History of tonsillectomy and adenoidectomy History of excision of lesion (05/30/09) History of excision of lesion (05/03/18) Status post cataract surgery Family History Mother No problems noted. Father No problems noted. Daughter History of breast cancer Paternal Grandmother Breast cancer Social History Household Members: Family and None Housing: House Alcohol intake: current Alcohol intake frequency: a few times a week Patient Tobacco Use Status: Former Tobacco user e-Cigarette/Vaping Use: Never Used service: No Current occupational status: retired Cognitive needs: No Hearing needs: No Vision needs: Yes Physical Exam Vital Signs: Last Vital Signs Pulse 63 03/03/25 11:52 BP 140/66 H 03/03/25 11:52 Pulse Ox 100 03/03/25 11:52 Oxygen Delivery Method Room Air 03/03/25 11:52 BMI result Body Mass Index 19.2 Const General: cooperative, healthy appearing, comfortable and anxious Nutritional Appearance: average body habitus Orientation/consciousness: patient oriented x3 Limitations: no limitations Eyes Pupils: Equal, round and reactive pupils present Neuro General: patient oriented x3, gait normal, tone normal and moves all extremities Cranial nerves: Yes CN's II-XII intact bilaterally, Yes Facial sensation intact/muscles of mastication intact, Yes Equal, round and reactive pupils present, Yes Bilaterally intact EOM present, Yes Nystagmus not present, Yes Normal facial strength present, Yes Midline tongue present and Yes Symmetric palate elevation present Cognition (Neuro): normal cognition Gait exam (Neuro): Normal gait present Motor exam (neuro): 5/5 motor strength present throughout and Normal motor muscle tone present throughout Coordination: [id number] test normal and tandem gait normal Psych Affect: Anxious affect present Assessment & Plan Assessment & Plan (1) Alzheimer's dementia, late onset: Comment: positive PET Code(s): G30.1 - Alzheimer's disease with late onset; F02.80 - Dementia in other diseases classified elsewhere, unspecified severity, without behavioral disturbance, psychotic disturbance, mood disturbance, and anxiety Category: Medical Qualifiers: Dementia severity: moderate Dementia behavioral or psychological symptom: without behavioral, psychotic, or mood disturbance or anxiety Qualified Code(s): G30.1 - Alzheimer's disease with late onset; F02.B0 - Dementia in other diseases classified elsewhere, moderate, without behavioral disturbance, psychotic disturbance, mood disturbance, and anxiety (2) Anxiety: Code(s): F41.9 - Anxiety disorder, unspecified Category: Medical Plan MRI brain - nonspecific Donepezil 10 mg qd citalopram 20mg qd for anxiety memantine XR 14 mg qd AMyloid PET to confirm changes- moderate to frequent plaques Continue cognitive exercises she is mostly independent in her ADLs. Coding Level of Care Code Est Pt Level 4 (87811) Complex EM visit Add On G2211 Diagnoses Moderate late onset Alzheimer's dementia without behavioral disturbance, psychotic disturbance, mood disturbance, or anxiety G30.1; F02.B0 Dementia severity: moderate Dementia behavioral or psychological symptom: without behavioral, psychotic, or mood disturbance or anxiety Anxiety F41.9
--- OUTSIDE RECORDS SUMMARY | 2025-03-03 14:41 | XMS_ITS | Encounter Summary ---
Author Organization [facility] Address [address] [place] [address] Phone Care Team Providers Care Medicaid Plan Compliance Director Name Role Phone Elana Rubio MD Primary Care Provider [phone] Encounter Details Date Type Department Care Team (Late st Contact Info) Description 07/31/2023 Procedure Pass OR Admitting Dept - Virtual Department [address] [place] [address] Social History Tobacco Use Types Packs/Day Years [...] on filedocumented in this encounter Care Teams Medicaid Plan Compliance Director Relationship Specialty Start Date End Date Elana Rubio MD [address] [place] [address] PCP - General Internal Medicine 06/19/23 documented as of this encounter Additional Source Comments The information contained in this document represents components of the legal health record. It is not the complete legal health record.[facility]
--- OUTSIDE RECORDS SUMMARY | 2025-03-03 14:41 | XMS_ITS | Encounter Summary ---
Author Organization [facility] Address [address] [place] [address] Phone Care Team Providers Care Chassis Wirer Name Role Phone Elana Rubio MD Primary Care Provider [phone] Encounter Details Date Type Department Care Team (Late st Contact Info) Description 08/14/2023 Procedure Pass OR Admitting Dept - Virtual Department [address] [place] [address] Social History Tobacco Use Types Packs/Day Years [...] on filedocumented in this encounter Care Teams Chassis Wirer Relationship Specialty Start Date End Date Elana Rubio MD [address] [facility] [place] [address] PCP - General Internal Medicine 06/19/23 documented as of this encounter Additional Source Comments The information contained in this document represents components of the legal health record. It is not the complete legal health record.[facility]
--- OUTSIDE RECORDS SUMMARY | 2025-03-03 14:41 | XMS_ITS | Clinical Summary ---
Author Organization [facility] Address [address] [place] [address] Phone Care Team Providers Care Optimization Specialist Name Role Phone Elana Rubio MD Primary [...] file Insurance MEDICARE PART A & B [employer] SUPPLEMENT MEDICARE PART A & B [employer] SUPPLEMENT MEDICARE PART A & B [employer] SUPPLEMENT MEDICARE PART A & B [employer] MEDEX SUPPLEMENT MEDICARE PART A & B [facility] MEDEX SUPPLEMENT MEDICARE PART A & B [employer] SUPPLEMENT Care Teams Optimization Specialist Relationship Specialty Start Date End Date Elana Rubio MD [address] [place] [address] PCP - General Internal Medicine 06/19/23 Additional Source Comments The information contained in this document represents components of the legal health record. It is not the complete legal health record.[facility]
== END 2025-03-03 12:19 | disposition home or self-care (01) ==
PROVIDERS: PCP Internal Medicine; Visit Provider Psychiatry & Neurology Neurology
DX: G30.1 Alzheimer's disease with late onset (principal); F02.B0 Dementia in other diseases classified elsewhere, moderate, without behavioral disturbance, psychotic disturbance, mood disturbance, and anxiety; F41.9 Anxiety disorder, unspecified
CPT/HCPCS: 99214; G2211

== ENCOUNTER → 2025-03-03 11:49 | Outpatient (BNVA) | payer MEDICARE, SELFPAY | PROVIDERS: PCP Internal Medicine; Visit Provider Psychiatry & Neurology Neurology | DX: G30.1 Alzheimer's disease with late onset (principal); F02.B0 Dementia in other diseases classified elsewhere, moderate, without behavioral disturbance, psychotic disturbance, mood disturbance, and anxiety; F41.9 Anxiety disorder, unspecified | CPT/HCPCS: 99212 ==

== ENCOUNTER 2025-03-06 08:42 | Outpatient (REF) | payer MEDICARE, SELFPAY ==
--- OUTSIDE RECORDS SUMMARY | 2025-03-06 09:38 | XMS_ITS | Clinical Summary ---
Author Organization [facility] Address [address] [place] [address] Phone Care Team Providers Care Surface Supply Breathing Apparatus Name Role Phone Elana Rubio MD Primary Care Provider [phone] Allergies Active Allergy Reactions Criticality Noted Date [...] file Insurance MEDICARE PART A & B [employer] SUPPLEMENT MEDICARE PART A & B [employer] SUPPLEMENT MEDICARE PART A & B [employer] MED[employer] SUPPLEMENT MEDICARE PART A & B [employer] MEDEX SUPPLEMENT MEDICARE PART A & B [facility] MEDEX SUPPLEMENT MEDICARE PART A & B [employer]EX SUPPLEMENT Care Teams Surface Supply Breathing Apparatus Relationship Specialty Start Date End Date Elana Rubio MD [address] [facility] [place] [address] PCP - General Internal Medicine 06/19/23 Additional Source Comments The information contained in this document represents components of the legal health record. It is not the complete legal health record.[facility]
--- OUTSIDE RECORDS SUMMARY | 2025-03-06 09:38 | XMS_ITS | Encounter Summary ---
Author Organization [facility] Address [address] [place] [address] Phone Care Team Providers Care Accounts Receivable Collector Name Role Phone Elana Rubio MD Primary Care Provider [phone] Encounter Details Date Type Department Care Team (Late st Contact Info) Description 08/14/2023 Procedure Pass OR Admitting Dept - Virtual Department [address] [place] [address] Social History Tobacco Use Types Packs/Day Years [...] on filedocumented in this encounter Care Teams Accounts Receivable Collector Relationship Specialty Start Date End Date Elana Rubio MD [address] [place] [address] PCP - General Internal Medicine 06/19/23 documented as of this encounter Additional Source Comments The information contained in this document represents components of the legal health record. It is not the complete legal health record.[facility]
--- OUTSIDE RECORDS SUMMARY | 2025-03-06 09:38 | XMS_ITS | Encounter Summary ---
Author Organization [facility] Address [address] [place] [address] Phone Care Team Providers Care Business Process Manager Name Role Phone Elana Rubio MD Primary Care Provider [phone] Encounter Details Date Type Department Care Team (Late st Contact Info) Description 07/31/2023 Procedure Pass OR Admitting Dept - Virtual Department [address] [place] [address] Social History Tobacco Use Types Packs/Day Years [...] on filedocumented in this encounter Care Teams Business Process Manager Relationship Specialty Start Date End Date Elana Rubio MD [address] [place] [address] PCP - General Internal Medicine 06/19/23 documented as of this encounter Additional Source Comments The information contained in this document represents components of the legal health record. It is not the complete legal health record.[facility]
[2025-03-06 11:06] LABS: Alanine Aminotransferase 12 U/L (0-31); Albumin Level 4.5 g/dL (3.5-5.0); Alkaline Phosphatase 42 U/L (39-117); Anion Gap 15 (12-20); Aspartate Amino Transferase 18 U/L (5-31); Blood Urea Nitrogen 17 mg/dL (9-16); Calcium 9.0 mg/dL (8.4-10.2); Carbon Dioxide 25 mmol/L (22-29); Chloride 100 mmol/L (96-108); Estimated Glomerular Filt Rate 31; Potassium 4.3 mmol/L (3.3-5.1); Sodium 136 mmol/L (135-145); Total Protein 6.7 g/dL (6.5-8.0)
== END 2025-03-06 08:43 | disposition home or self-care (01) ==
LOC: HO.HMGCLDS 08:42
PROVIDERS: PCP Internal Medicine; Visit Provider Student in an Organized Health Care Education/Training Program
DX: M85.80 Other specified disorders of bone density and structure, unspecified site (principal); Z78.0 Asymptomatic menopausal state
CPT/HCPCS: 36415; 80053; 82306

== ENCOUNTER 2025-03-17 10:49 | Outpatient (REF) | payer MEDICARE, SELFPAY ==
--- NOTE | ~2025-03-17 | MM_ITS ---
EXAMINATION: DXA BONE DENSITY AXIAL HISTORY: M81.0 - Age-related osteoporosis without current pathological fracture TECHNIQUE: [employer] Dual energy absorptiometry (DEXA) of the lumbar spine, total left hip, and femoral neck was performed. COMPARISON: Comparison is made with the prior examination dated 02/27/2023. FINDINGS: The bone mineral density of the lumbar spine is 1.071 g/cm2, corresponding to a T-score of -0.8, and a Z-score of 1.5. This is indicative of normal bone mineral density. This represents a BMD change of 1.8% compared to the prior exam. This is not statistically significant. The bone mineral density of the left total hip is 0.710 g/cm2, corresponding to a T-score of -2.4, and a Z-score of 0.1. This is indicative of osteopenia. This represents a BMD change of -4.6% compared to the prior exam. This is statistically significant. The bone mineral density of the left femoral neck is 0.778 g/cm2, corresponding to a T-score of -1.9, and a Z-score of 0.7. This is indicative of osteopenia. This represents a BMD change of -10% compared to the prior exam. FRACTURE RISK: The FRAX index suggests a ten year probability of major osteoporotic fracture of 12.4%, and of hip fracture 4.0%. MM/XR DEXA axial skeleton IMPRESSION: Based on bone mineral density, and according to World Health Organization (WHO) criteria, the diagnosis is consistent with osteopenia. Statistically, 68% of repeat scans fall within 1 SD (+/- 0.010 g/cm2 for AP spine L1-L4) and 1 SD (+/- 0.012 g/cm2 for femur total) FRAX is a trademark of the [employer]'s [employer] for Metabolic Bone Disease, a World Health Organization (WHO) Collaborating Center. Electronically signed by: Trey Cage MD 03/17/2025 11:17 AM EDT
--- OUTSIDE RECORDS SUMMARY | 2025-03-17 12:19 | XMS_ITS | Encounter Summary ---
Author Organization [facility] Address [address] [address] Phone Care Team Providers Care Commissary Production Supervisor Name Role Phone Elana Rubio MD Primary Care Provider [phone] Encounter Details Date Type Department Care Team (Late st Contact Info) Description 07/31/2023 Procedure Pass OR Admitting Dept - Virtual Department [address] [place] [address] Social History Tobacco Use Types Packs/Day Years [...] on filedocumented in this encounter Care Teams Commissary Production Supervisor Relationship Specialty Start Date End Date Elana Rubio MD [address] [place], [place] [id number] PCP - General Internal Medicine 06/19/23 documented as of this encounter Additional Source Comments The information contained in this document represents components of the legal health record. It is not the complete legal health record.[facility]
--- OUTSIDE RECORDS SUMMARY | 2025-03-17 12:19 | XMS_ITS | Encounter Summary ---
Author Organization [facility] Address [address] [place] [address] Phone Care Team Providers Care Soccer Coach Name Role Phone Elana Rubio MD Primary Care Provider [phone] Encounter Details Date Type Department Care Team (Late st Contact Info) Description 08/14/2023 Procedure Pass OR Admitting Dept - Virtual Department [address] [place] [address] Social History Tobacco Use Types Packs/Day Years [...] on filedocumented in this encounter Care Teams Soccer Coach Relationship Specialty Start Date End Date Elana Rubio MD [address] [place], [place] [id number] PCP - General Internal Medicine 06/19/23 documented as of this encounter Additional Source Comments The information contained in this document represents components of the legal health record. It is not the complete legal health record.[facility]
--- OUTSIDE RECORDS SUMMARY | 2025-03-17 12:19 | XMS_ITS | Clinical Summary ---
Author Organization [facility] Address [address] [place] [address] Phone Care Team Providers Care Bee Keeper Name Role Phone Elana Rubio MD Primary Care Provider [phone] Allergies Active Allergy Reactions Criticality Noted Date [...] file Insurance MEDICARE PART A & B [employer] SUPPLEMENT MEDICARE PART A & B [email or web address] SUPPLEMENT MEDICARE PART A & B [email or web address] SUPPLEMENT MEDICARE PART A & B [email or web address] MEDEX SUPPLEMENT MEDICARE PART A & B [facility] MEDEX SUPPLEMENT MEDICARE PART A & B [employer] MEDEX SUPPLEMENT Care Teams Bee Keeper Relationship Specialty Start Date End Date Elana Rubio MD [place] [place] [address] PCP - General Internal Medicine 06/19/23 Additional Source Comments The information contained in this document represents components of the legal health record. It is not the complete legal health record.[facility]
== END 2025-03-17 10:50 | disposition home or self-care (01) ==
LOC: HO.MAMMO 10:49
PROVIDERS: PCP Internal Medicine; Visit Provider Student in an Organized Health Care Education/Training Program
DX: M81.0 Age-related osteoporosis without current pathological fracture (principal)
CPT/HCPCS: 77080

== ENCOUNTER → 2025-03-17 11:00 | Outpatient (BNV) | payer MEDICARE, SELFPAY | PROVIDERS: PCP Internal Medicine; Visit Provider Radiology Diagnostic Radiology | DX: E28.39 Other primary ovarian failure (principal) | CPT/HCPCS: 77080 ==

== ENCOUNTER 2025-03-21 13:44 | Outpatient (AMB) | payer MEDICARE, SELFPAY ==
--- NOTE | 2025-03-21 14:12 | A.OFFVIS_ITS ---
Vital Signs 03/21/25 14:18 Height 5 ft 5 in Weight 116 lb 2.938 oz BMI 19.3 BP 134/60 Blood Pressure Location Lt brachial Position Sitting Pulse 65 Pulse Source Pulse Oximeter Pulse Oximetry (%) 97 Oxygen Delivery Method Room Air Intake Visit Reasons: Osteoporosis/follow up & Prolia inj Intake Note: Patient presents for Osteoporosis and Prolia injection follow up. Allergies peanuts Allergy (Severe, Uncoded 03/03/25 11:52) anaphylaxis HPI Comments Details: Patient is an 84-year-old female with hypertension, diabetes, hyperlipidemia, osteopenia with elevated FRAX and PMR here today for follow up Interval History: Patient last seen 09/07/2024 with va - On Prednisone 1mg daily - Patient reports she is doing well - No falls or fractures - No return of symptoms on the prednisone 1mg - Started prolia for osteoporosis Today - On prednisone 1mg and Prolia 60mg SC every 6 months - Patient reports she is doing well - No falls or fractures - No return of symptoms on the prednisone 1mg Rheumatologic History: PMR diagnosed on inflammatory markers and stiffness involving the shoulders The prednisone started 01/2023 Attempted to taper prednisone off 01/2024 with return of symptoms Because of co- morbidities and age patient kept on 1mg daily Initial history with Dr. Nice: The patient presents with her sister for evaluating what is thought to be PMR. The history is mostly through the sister since the patient has significant memory lapses. Apparently in late September and early October patient developed an illness that almost totally disabled her. She was feeling stiffness and pain in her shoulders and upper arms. This also involved the lateral hip and anterior thigh regions. She had trouble getting out of bed. She eventually did see her doctor who noted elevated sed rate and in November she was started on prednisone 20 mg daily. Within days she felt much better. She feels like she is back to normal at presentwith some slight left lateral hip pain that she has had before. She does not recall any headache, jaw claudication or visual disturbance. She does not really have a history in the past that she can recall of arthritic problems. Apparently around the time of her illness there was concern that her medications could be causing the problem. The metformin and her statin were discontinued. She does not recall any blood work since being on the prednisone. Current Rheumatology Medication(s): Prednisone 1mg daily Prolia 60mg SC every 6 months [facility] Medical History (Updated 03/21/25 @ 14:35 by Tatyana Booker MD) Alzheimer's dementia, late onset Annual physical exam Anxiety Cognitive impairment, mild, so stated CKD (chronic kidney disease) stage 3, GFR 30-59 ml/min DM type 2 (diabetes mellitus, type 2) Hyperlipidemia HTN (hypertension) Squamous cell carcinoma of right lower leg Diabetes mellitus Skin growth Surgical History History of squamous cell carcinoma excision (08/13/18) History of excision of mass (02/20/15) History of hand surgery History of tonsillectomy and adenoidectomy History of excision of lesion (05/30/09) History of excision of lesion (05/03/18) Status post cataract surgery Family History Mother No problems noted. Father No problems noted. Daughter History of breast cancer Paternal Grandmother Breast cancer Social History Household Members: Family and None Housing: House Alcohol intake: current Alcohol intake frequency: a few times a week Patient Tobacco Use Status: Former Tobacco user e-Cigarette/Vaping Use: Never Used service: No Current occupational status: retired Cognitive needs: No Hearing needs: No Vision needs: Yes Review of Systems Narrative Review of Systems Constitutional: Denies fever, chills, weight loss ENT: Denies vision changes, eye pain or eye redness, dental caries, dry mouth GI: Denies nausea, vomiting, diarrhea, abdominal pain, change in BM Pulm: Denies SOB, IQBAL, hemoptysis, wheezing Cards: Denies chest pain, palpitations Skin: Denies Raynaud's, rash, nail changes, photosensitivity, CLINICAL APPLICATION CONSULTANT: Denies headaches, weakness, paresthesias, recurrent falls MSK: as per HPI All other systems reviewed and are unremarkable except noted above Physical Exam Exam Exam: Vital signs reviewed Physical Examination CONSTITUITIONAL Patient alert and cooperative. Well appearing and in no apparent painful distress MSK Hands * Right Hand: Able to make a fist. No swelling or tenderness to palpation of the MCPs, PIPs or DIPs. * Left Hand: Able to make a fist. No swelling or tenderness to palpation of the MCPs, PIPs or DIPs. * Herbedens nodes noted bilaterally Wrists * Right Wrist: Full ROM to flexion and extension. No swelling or TTP * Left Wrist: Full ROM to flexion and extension. No swelling or TTP Elbows * Right Elbow: Full ROM. No swelling or TTP. No TTP of the medial epicondyle. No TTP of the lateral epicondyle * Left Elbow: Full ROM. No swelling or TTP. No TTP of the medial epicondyle. No TTP of the lateral epicondyle Shoulders * Right shoulder: Full ROM. No swelling noted. No TTP of the AC joint. No TTP of the subacromial bursa. No TTP of the posterior shoulder * Left shoulder: Full ROM. No swelling noted. No TTP of the AC joint. No TTP of the subacromial bursa. No TTP of the posterior shoulder Knees * Right knee: Full ROM. No swelling noted. No TTP of the knee joint line. No TTP of pes anserine bursa * Left knee: Full ROM. No swelling noted. No TTP of the knee joint line. No TTP of pes anserine bursa. * Crepitations felt bilaterally Ankles * Right ankle: Good ankle dorsiflexion and plantar flexion. No swelling. No TTP of the ankle joint * Left ankle: Good ankle dorsiflexion and plantar flexion. No swelling. No TTP of the ankle joint Feet * Right foot: Negative squeeze test * Left foot: Negative squeeze test Tender points? * No tenderness to palpation of the bilateral trapezius, supraspinatus, anterior costochondral junctions, bilateral suboccipital muscle insertions SKIN No rashes Vital Signs: Last Vital Signs Pulse 65 03/21/25 14:18 BP 134/60 03/21/25 14:18 Pulse Ox 97 03/21/25 14:18 Oxygen Delivery Method Room Air 03/21/25 14:18 BMI result Body Mass Index 19.3 Results Reviewed Results Reviewed: Laboratory Tests 02/20/25 02/24/25 03/06/25 09:54 09:10 08:45 WBC 5.3 RBC 2.91 L Hgb 9.3 L Hct 28.9 L Plt Count 199 ESR 11 Sodium 136 Potassium 4.3 Chloride 100 Carbon Dioxide 25 BUN 17 H Creatinine 1.61 H AST 18 ALT 12 C-Reactive Protein < 0.10 25-OH Vitamin D Total 73.5 DEXA 02/2025 FINDINGS: The bone mineral density of the lumbar spine is 1.071 g/cm2, corresponding to a T-score of -0.8, and a Z-score of 1.5. This is indicative of normal bone mineral density. This represents a BMD change of 1.8% compared to the prior exam. This is not statistically significant. The bone mineral density of the left total hip is 0.710 g/cm2, corresponding to a T-score of -2.4, and a Z-score of 0.1. This is indicative of osteopenia. This represents a BMD change of -4.6% compared to the prior exam. This is statistically significant. The bone mineral density of the left femoral neck is 0.778 g/cm2, corresponding to a T-score of -1.9, and a Z-score of 0.7. This is indicative of osteopenia. This represents a BMD change of -10% compared to the prior exam. FRACTURE RISK: The FRAX index suggests a ten year probability of major osteoporotic fracture of 12.4%, and of hip fracture 4.0%. Assessment & Plan Assessment & Plan (1) PMR (polymyalgia rheumatica): Comment: on Prednisone since 12/07 Unable to wean 05/2024. Kept on low dose prednisone 1mg Code(s): M35.3 - Polymyalgia rheumatica Category: Medical Plan: #PMR Patient is a an 83-year-old female with PMR here today for follow up. Currently in remission on 1 mg prednisone Plan - Decrease prednisone: 1mg every other day for 1 month then 1 mg every 3 days for 1 month and 1 mg every week for 1 month then stop - RTC 6 months - Labs before follow up: CBC, CMP, ESR, CRP (2) Osteopenia after menopause: Comment: DEXA 02/2023: LS -0.9, Fem neck -1.8, femur -2.1. Frax 13.1/3.9, DEXA 02/2025: AP Spine -0.8, Left femur neck -1.9, Left femur total -2.4 started on Fosamax by Rheumatology February 2023 Started on Prolia 08/2024 Code(s): M85.80 - Other specified disorders of bone density and structure, unspecified site; Z78.0 - Asymptomatic menopausal state Category: Medical Plan: #Osteopenia with elevated FRAX Patient with osteopenia and elevated FRAX. Plan - Prolia 60mg SC every 6 months - Vitamin D at next blood draw - Vitamin D 2000U daily (3) Long-term corticosteroid use: Code(s): Z79.52 - rodent exterminator (current) use of systemic steroids Category: Medical Plan: #Long-term Use of Steroids Discussed with patient the risks and benefits of steroid for managing the rheumatic condition Benefits include: - Reduced pain, improved mobility, increased participation in activities, and decreased progression of disease Risks include: - GI upset, potential ultrasound worsening or formation (especially in patients > 65 years old), elevated blood pressure/worsening hypertension, elevated blood sugar/worsening diabetes control, worsening of bone density, elevated lipids/worsening triglycerides, cataract formation, weight gain Recommended using proton pump inhibitors (PPIs) for the duration of steroid use to reduce the risk of gastric ulcers and vitamin-D daily to reduce the risk of osteoporosis Labs checked: ?A1c, T spot, hepatitis-B and C serologies Pneumocystis jiroveci prophylaxis: ?Patient with risk factors including steroids greater than 50 mg for more than 30 days, age greater than 60 years, and lung involvement from underlying rheumatic disease requires prophylaxis and will be given so (4) Encounter for monitoring denosumab therapy: Code(s): Z51.81 - Encounter for therapeutic drug level monitoring; Z79.899 - Other superintendent terminal (current) drug therapy Plan: #Long-term use of Denosumab Discussed with patient the risks and benefits of denosumab (Prolia) for the management of their osteoporosis Benefits include improved bone density, decreased fracture risk Risks include rapid bone loss if denosumab stopped, osteonecrosis of the jaw especially in patients with poor oral hygiene/diabetes/use of glucocorticoids/age greater than 65 years, atypical femoral fractures, injection site reactions. Mild increased risk of infections due to RANKL on T helper cells, increased risk of hypocalcemia especially in CKD patients Keep vitamin-D at least 35 ng/mL Advised to delay non emergent dental procedures to toward the end of the 6 month cycle and if they plan to stop denosumab would need to continue antiresorptive to maintain the effects of denosumabe Plan I spent 30 minutes reviewing the record and labs, taking a history, examining the patient, discussing the treatment plan, ordering diagnostic work up and documenting in the medical record Coding Level of Care Code Est Pt Level 4 (12719) Complex EM visit Add On G2211 Diagnoses PMR (polymyalgia rheumatica) M35.3 Osteopenia after menopause M85.80; Z78.0 Long-term corticosteroid use Z79.52 Encounter for monitoring denosumab therapy Z51.81; Z79.899
[2025-03-21 14:18] VITALS: BP 134/60; PULSE 65; O2SAT 97; BMI 19.3
--- OUTSIDE RECORDS SUMMARY | 2025-03-21 16:53 | XMS_ITS | Clinical Summary ---
Author Organization [facility] Address [address] [place] [address] Phone Care Team Providers Care Candy Bar Attendant Name Role Phone Elana Rubio MD Primary Care Provider [phone] Allergies Active Allergy Reactions Criticality Noted Date [...] file Insurance MEDICARE PART A & B [employer] SUPPLEMENT MEDICARE PART A & B [employer] SUPPLEMENT MEDICARE PART A & B [employer] MED[employer] SUPPLEMENT MEDICARE PART A & B [employer] SUPPLEMENT MEDICARE PART A & B [facility] MEDEX SUPPLEMENT MEDICARE PART A & B [employer] MEDEX SUPPLEMENT Care Teams Candy Bar Attendant Relationship Specialty Start Date End Date Elana Rubio MD [place] [address] PCP - General Internal Medicine 06/19/23 Additional Source Comments The information contained in this document represents components of the legal health record. It is not the complete legal health record.[facility]
--- OUTSIDE RECORDS SUMMARY | 2025-03-21 16:54 | XMS_ITS | Encounter Summary ---
Author Organization [facility] Address [address] [address] Phone Care Team Providers Care Manager Pacu Name Role Phone Elana Rubio MD Primary Care Provider [phone] Encounter Details Date Type Department Care Team (Late st Contact Info) Description 07/31/2023 Procedure Pass OR Admitting Dept - Virtual Department [address] [place] [address] Social History Tobacco Use Types Packs/Day Years [...] on filedocumented in this encounter Care Teams Manager Pacu Relationship Specialty Start Date End Date Elana Rubio MD [address] [place], [place] [id number] PCP - General Internal Medicine 06/19/23 documented as of this encounter Additional Source Comments The information contained in this document represents components of the legal health record. It is not the complete legal health record.[facility]
--- OUTSIDE RECORDS SUMMARY | 2025-03-21 16:54 | XMS_ITS | Encounter Summary ---
Author Organization [facility] Address [address] [place] [address] Phone Care Team Providers Care Stock Analyst Name Role Phone Elana Rubio MD Primary Care Provider [phone] Encounter Details Date Type Department Care Team (Late st Contact Info) Description 08/14/2023 Procedure Pass OR Admitting Dept - Virtual Department [address] [place] [address] Social History Tobacco Use Types Packs/Day Years [...] on filedocumented in this encounter Care Teams Stock Analyst Relationship Specialty Start Date End Date Elana Rubio MD [address] [place], [place] [id number] PCP - General Internal Medicine 06/19/23 documented as of this encounter Additional Source Comments The information contained in this document represents components of the legal health record. It is not the complete legal health record.[facility]
== END 2025-03-21 14:59 | disposition home or self-care (01) ==
LOC: HO.RHES 13:45
PROVIDERS: PCP Internal Medicine; Visit Provider Student in an Organized Health Care Education/Training Program
DX: M35.3 Polymyalgia rheumatica (principal); M85.80 Other specified disorders of bone density and structure, unspecified site; Z78.0 Asymptomatic menopausal state; Z79.52 Long term (current) use of systemic steroids; Z51.81 Encounter for therapeutic drug level monitoring; Z79.899 Other long term (current) drug therapy
CPT/HCPCS: 99214; G2211

== ENCOUNTER → 2025-03-21 13:44 | Outpatient (BNVA) | payer MEDICARE, SELFPAY | PROVIDERS: PCP Internal Medicine; Visit Provider Student in an Organized Health Care Education/Training Program | DX: M35.3 Polymyalgia rheumatica (principal); M85.80 Other specified disorders of bone density and structure, unspecified site; Z78.0 Asymptomatic menopausal state; Z79.52 Long term (current) use of systemic steroids; Z51.81 Encounter for therapeutic drug level monitoring; Z79.899 Other long term (current) drug therapy | CPT/HCPCS: 96372; 99212; J0897 ==

== ENCOUNTER → 2025-03-22 13:02 | Outpatient (BNV) | payer MEDICARE, SELFPAY | PROVIDERS: Visit Provider Internal Medicine Medical Oncology | DX: D64.9 Anemia, unspecified (principal); N18.30 Chronic kidney disease, stage 3 unspecified | CPT/HCPCS: 99204 ==

== ENCOUNTER 2025-04-03 09:15 | Outpatient (REF) | payer MEDICARE, SELFPAY ==
[2025-04-03 13:41] LABS: Baso%MD 0.9 %; Eos%MD 3.1 %; Hematocrit 31.0 % (37.0-47.0); Hemoglobin 10.1 g/dl (12.0-16.0); IG%MD 0.2 %; Lymph%MD 31.4 %; Mean Corpuscular HGB Conc 32.6 g/dl (31.0-35.0); Mean Corpuscular Hemoglobin 32.5 pg (27.0-33.0); Mean Corpuscular Volume 99.7 fL (80.0-98.0); Mono%MD 7.3 %; NRBC Abs Auto 0.000 X10*3/uL (0.0-0.012); NRBC Pct Auto 0.0 /100WBC (0.0-0.2); Neut%MD 57.1 %; Platelet Count 165 X10*3/uL (160-400); Red Blood Count 3.11 X10*6/uL (4.20-5.50); White Blood Count 5.5 X10*3/uL (4.8-10.8)
[2025-04-03 14:12] LABS: Alanine Aminotransferase 18 U/L (0-31); Albumin Level 4.7 g/dL (3.5-5.0); Alkaline Phosphatase 51 U/L (39-117); Anion Gap 13 (12-20); Aspartate Amino Transferase 22 U/L (5-31); Blood Urea Nitrogen 17 mg/dL (9-16); Calcium 9.4 mg/dL (8.4-10.2); Carbon Dioxide 26 mmol/L (22-29); Chloride 105 mmol/L (96-108); Estimated Glomerular Filt Rate 36; Potassium 4.7 mmol/L (3.3-5.1); Sodium 139 mmol/L (135-145); Total Protein 7.1 g/dL (6.5-8.0)
[2025-04-03 14:34] LABS: Basophils Abs Manual 0.1 X10*3/uL (0.0-0.2); Basophils Percent Manual 1 % (0-2); Eosinophils Absolute Manual 0.3 X10*3/uL (0.0-0.4); Eosinophils Percent Manual 5 % (0-4); Lymphocytes Absolute Manual 1.7 X10*3/uL (1.2-4.9); Lymphocytes Percent Manual 30 % (20-40); Monocytes Absolute Manual 0.1 X10*3/uL (0.1-1.2); Monocytes Percent Manual 2 % (2-11); Neutrophils Percent Manual 62 % (45-73)
[2025-04-03 14:36] LABS: RBC Morphology NOTED
[2025-04-03 14:37] LABS: Schistocytes 2+ (3-5) /OIF
[2025-04-03 15:09] LABS: Band Neutrophils Percent 0 % (3-5); Neutrophils Absolute Manual 3.4 X10*3/uL (2.0-8.3)
== END 2025-04-03 09:16 | disposition home or self-care (01) ==
LOC: HO.HMGCLDS 09:15
PROVIDERS: PCP Internal Medicine; Visit Provider Internal Medicine
DX: E78.5 Hyperlipidemia, unspecified (principal); E11.9 Type 2 diabetes mellitus without complications
CPT/HCPCS: 36415; 80053; 83036; 85007; 85027

== ENCOUNTER 2025-04-05 09:39 | Outpatient (AMB) | payer MEDICARE, SELFPAY ==
[2025-04-05 09:45] VITALS: BP 128/64; PULSE 64; RESP 16; TEMP 36.6; O2SAT 99; BMI 19.1
--- NOTE | 2025-04-05 09:45 | AM.OFFVISMDC ---
Intake Vital Signs 04/05/25 09:45 Height 5 ft 5 in Weight 115 lb BMI 19.1 BP 128/64 Blood Pressure Location Lt brachial Position Sitting Respiration 16 Pulse 64 Pulse Source Pulse Oximeter Temp 97.8 F Temp Source Oral Pulse Oximetry (%) 99 Oxygen Delivery Method Room Air Intake Visit Reasons: SWV G0439 Allergies peanuts Allergy (Severe, Uncoded 04/05/25 09:48) anaphylaxis HPI SWV G0439 HPI Details Initiated the conversation about Advanced Directives. Advanced Directives help? patients prepare for current and future decisions about their medical treatment? and place of care. Discussed with patient that it is a process where a patients? current condition and prognosis are reviewed, their wishes for information? regarding their illness are elicited, and likely medical dilemmas are presented? and options discussed. The form can be amended as needed, reviewed yearly and? make changes as needed IPPE/AWV ? year old presents? for her ? Annual? Wellness Visit, initial visit.? Medical / Social History Reviewed? Past Medical History ?Yes? . ? [place]? of Care / Care Team list updated ?Yes . ? Surgical/Hospitalization? History ?Yes . ? Current Medications? (including OTC and supplements) ?Yes . ? Family History ?Yes? . ? Tobacco? Control form ?Yes . ? AUDIT-C (Alcohol use) form? ?Yes . ? Illicit drug use in Social? History ?Yes . ? Current diagnosis of? depression? ?No ? Appropriate PHQ2/PHQ9? completed ?Yes . ? Data entered by ?Medical? [employer] and reviewed by provider ? Fall Risk ? Fall? History? Have you had any falls with? injury in the past year? ?No . ? Have you had two or more? falls in the past year? ?No . ? Fall Risk Assessment: ?No? falls in the past year . ? HRA filled out by? the patient, reviewed by Provider and scanned. ? IPPE/AWV ? Balance? [place]? ?Yes . ? Tandem? walk ?Yes . ? Walk and? Turn ?Yes . ? Rise from? sit to stand ?Yes . ?Vision? Corrective? lens ?Yes ? Vision? screen ? Up-to-date, has an appointment [] for vision? screening and glaucoma screening ?Hearing? Whisper? test ?pass .? Initiated the conversation about Advanced Directives. Advanced Directives help? patients prepare for current and future decisions about their medical treatment? and place of care. Discussed with patient that it is a process where a patients? current condition and prognosis are reviewed, their wishes for information? regarding their illness are elicited, and likely medical dilemmas are presented? and options discussed. The form can be amended as needed, reviewed yearly and? make changes as needed Written? Plan?Completed. See Patient? Documents. [facility] Medical History (Updated 04/05/25 @ 10:19 by Elana Rubio MD) Alzheimer's dementia, late onset Annual physical exam Anxiety Cognitive impairment, mild, so stated CKD (chronic kidney disease) stage 3, GFR 30-59 ml/min DM type 2 (diabetes mellitus, type 2) Hyperlipidemia HTN (hypertension) Squamous cell carcinoma of right lower leg Diabetes mellitus Skin growth Surgical History History of squamous cell carcinoma excision (08/13/18) History of excision of mass (02/20/15) History of hand surgery History of tonsillectomy and adenoidectomy History of excision of lesion (05/30/09) History of excision of lesion (05/03/18) Status post cataract surgery Family History Mother No problems noted. Father No problems noted. Daughter History of breast cancer Paternal Grandmother Breast cancer Social History (Updated 03/22/25 @ 13:28 by Inessa Castro) Household Members: Spouse, Family and None Housing: House Are you a primary resident care manager rn to a significant other at home: No Do you presently have visiting nurse or other home services: No Alcohol intake: current Alcohol intake frequency: a few times a week Patient Tobacco Use Status: Former Tobacco user Tobacco use type: Cigarette e-Cigarette/Vaping Use: Never Used service: No Current occupational status: retired Cognitive needs: No Hearing needs: No Vision needs: Yes Questionnaire Medicare Wellness Checkup What is your age?: 81 or older What gender do you identify with?: female During the past 4 weeks, how much have you been bothered by emotional problems such as feeling anxious, depressed, irritable, sad or downhearted, and blue?: not at all During the past 4 weeks, has your physical & emotional health limited your social activities with family, friends, neighbors, or groups?: not at all During the past 4 weeks, how much bodily pain have you generally had?: no pain During the past 4 weeks, was someone available to help you if you needed & wanted help?: yes, as much as I wanted During the past 4 weeks, what was the hardest physical activity you could do for at least 2 minutes?: light Can you get to places out of walking distance without help? (For eg., can you travel alone on buses, taxis or drive your car?): No Can you go shopping for groceries or clothes without someone's help?: No Can you prepare your own meals?: No Can you do your housework without help?: No Because of any health problems, do you need the help of another person with your personal care needs such as eating, bathing, dressing or getting around the house?: No Can you handle your own money without help?: No During the past 4 weeks, how would you rate your health in general?: very good During the past 4 weeks how have things been going for you?: pretty well Are you having difficulties driving your car?: not applicable, I don't use a car Do you always fasten your seat belt when you are in a car?: yes, usually During past 4 weeks, have you been bothered by the following: never: Falling or dizzy when standing up, Sexual problems?, Trouble eating well?, Teeth or denture problems?, Problems using the telephone? and Tiredness or fatigue? Have you fallen 2 or more times in the past year?: No Are you afraid of falling?: No Are you a smoker?: no During the past 4 weeks, how many drinks of wine, beer, or other alcoholic beverages did you have?: no alcohol at all Do you exercise for about 20 minutes 3 or more times a week?: no, I usually do not exercise this much Have you been given information to help with the following?: no: Hazards in your house that might hurt you? and no: Keeping track of your medications? How often do you have trouble taking medicines the way you have been told to take them?: I seldom take medications as prescribed How confident are you that you can control & manage most of your health problems?: very confident What is your race?: White Mini Mental State Exam (MMSE) Orientation What is the (year) (season) (date) (day) (month)?: year, season and month Where are we (state) (county) (town or city) (hospital) (floor)?: state, county and town or city Registration Name of 3 unrelated objects clearly and slowly, then ask patient to repeat all 3 of them. (1st repeat determines score. Make sure they can repeat all three): object 1 and object 2 Attention & Calculation (CHOOSE ONE) Spell WORLD backwards (DLROW): 2 letters Recall Ask patient to repeat the 3 items from question #3.: object 1 Language Show patient a wristwatch & ask what it is. Repeat for pencil.: watch and pencil Ask the patient to repeat the phrase 'No ifs, ands, or buts' after you.: incorrect Ask the patient to 'take a piece of paper with their right hand' 'fold paper in half' 'place paper on floor': take paper in right hand and fold paper in half Give patient a blank piece of paper & ask to write a sentence. Score if it contains a noun & verb.: sentence contains subject and verb Score Score: 16 PHQ-9 Over the last 2 weeks, how often have you been bothered by any of the following problems? 1. Little interest or pleasure in doing things: not at all 2. Feeling down, depressed, or hopeless: not at all 3. Trouble falling or staying asleep, or sleeping too much: not at all 4. Feeling tired or having little energy: not at all 5. Poor appetite or overeating: not at all 6. Feeling bad about yourself - or that you are a failure or have let yourself or your family down: not at all 7. Trouble concentrating on things, such as reading the newspaper or watching television: not at all 8. Moving or speaking so slowly that other people could have noticed. Or the opposite - being so fidgety or restless that you have been moving around a lot more than usual: not at all 9. Thoughts that you would be better off or of hurting yourself in some way: not at all Total score: 0 Depression Screening Interpretation: Negative Depression Screening Done: Yes Source: Developed by Drs. Trey Dolan, Tova Pereira, Cholo Damon and colleagues, with an educational alvaro from [employer]. Review of Systems Const All systems reviewed & are unremarkable except as noted in HPI and below Eyes Reports no additional complaints ENT Reports no additional complaints Card Reports no additional complaints Resp Reports no additional complaints GI Reports no additional complaints Physical Exam Vital Signs: Last Vital Signs Temp 97.8 F 04/05/25 09:45 Pulse 64 04/05/25 09:45 Resp 16 04/05/25 09:45 BP 128/64 04/05/25 09:45 Pulse Ox 99 04/05/25 09:45 Oxygen Delivery Method Room Air 04/05/25 09:45 BMI result Body Mass Index 19.1 Const General: no acute distress HEENT Head: Yes normal to inspection Ears: TM's normal bilaterally Eyes General: appearance normal, both eyes and all related structures EOM: EOMs intact bilaterally Neck Neck: Yes no lymphadenopathy and Yes supple Resp Effort & Inspection: normal respiratory effort Auscultation: clear to auscultation bilaterally Cardio Rhythm: regular rhythm Heart sounds: S1 normal heart sound present and S2 normal heart sound present GI Inspection: Yes normal to inspection Palpation (GI): Soft to palpation Percussion: Yes normal to percussion Auscultation: normal bowel sounds Extrem General: Yes no clubbing, cyanosis or edema Assessment & Plan Assessment & Plan (1) HTN (hypertension): Comment: Lisinopril on hold Code(s): I10 - Essential (primary) hypertension Plan: We will continue to monitor blood pressure off lisinopril (2) Hyperlipidemia: Code(s): E78.5 - Hyperlipidemia, unspecified Plan: Continue statin (3) DM type 2 (diabetes mellitus, type 2): Code(s): E11.9 - Type 2 diabetes mellitus without complications Qualifiers: Diabetes mellitus complication status: without complication Diabetes mellitus longterm insulin use: without manager intermediate use Qualified Code(s): E11.9 - Type 2 diabetes mellitus without complications Plan: A1c is 5.3. Patient's sister reports blood glucose readings between 120-140. Patient has been tapering down prednisone to 1 mg every other day. She was advised to decrease glipizide to half a tablet of 2.5 mg and continue to monitor fasting glucose for hypoglycemia. if the fasting blood glucose readings are lower than 100 patient was advised to stop taking glipizide. Follow-up in 4 months with a fasting labs before (4) CKD (chronic kidney disease) stage 3, GFR 30-59 ml/min: Code(s): N18.30 - Chronic kidney disease, stage 3 unspecified Plan: Monitor renal function avoid nephrotoxins (5) Alzheimer's dementia, late onset: Comment: positive PET, established with Neurology on Namenda and donepezil Code(s): G30.1 - Alzheimer's disease with late onset; F02.80 - Dementia in other diseases classified elsewhere, unspecified severity, without behavioral disturbance, psychotic disturbance, mood disturbance, and anxiety Qualifiers: Dementia behavioral or psychological symptom: without behavioral, psychotic, or mood disturbance or anxiety Dementia severity: moderate Qualified Code(s): G30.1 - Alzheimer's disease with late onset; F02.B0 - Dementia in other diseases classified elsewhere, moderate, without behavioral disturbance, psychotic disturbance, mood disturbance, and anxiety Plan: Follow-up with neurology (6) Anemia: Comment: chronic disease, Normal iron studies Code(s): D64.9 - Anemia, unspecified Plan: Monitor CBC Orders: Orders Comprehensive [place]. Panel Fast 4 Months E11.9 - Type 2 diabetes mellitus without complications, I10 - Essential (primary) hypertension, N18.30 - Chronic kidney disease, stage 3 unspecified Lipid Panel 4 Months E11.9 - Type 2 diabetes mellitus without complications, E78.5 - Hyperlipidemia, unspecified, F02.B0 - Dementia in other diseases classified elsewhere, moderate, without behavioral disturbance, psychotic disturbance, mood disturbance, and anxiety, G30.1 - Alzheimer's disease with late onset, I10 - Essential (primary) hypertension, N18.30 - Chronic kidney disease, stage 3 unspecified Vitamin D 25-OH Total 4 Months E55.9 - Vitamin D deficiency, unspecified Hemoglobin A1c 4 Months E11.9 - Type 2 diabetes mellitus without complications, E78.5 - Hyperlipidemia, unspecified, F02.B0 - Dementia in other diseases classified elsewhere, moderate, without behavioral disturbance, psychotic disturbance, mood disturbance, and anxiety, G30.1 - Alzheimer's disease with late onset, I10 - Essential (primary) hypertension, N18.30 - Chronic kidney disease, stage 3 unspecified Complete Blood Count Auto Diff 4 Months E11.9 - Type 2 diabetes mellitus without complications, E78.5 - Hyperlipidemia, unspecified, F02.B0 - Dementia in other diseases classified elsewhere, moderate, without behavioral disturbance, psychotic disturbance, mood disturbance, and anxiety, G30.1 - Alzheimer's disease with late onset, I10 - Essential (primary) hypertension, N18.30 - Chronic kidney disease, stage 3 unspecified Microalbumin, Random (w Creat) 4 Months E11.9 - Type 2 diabetes mellitus without complications, E78.5 - Hyperlipidemia, unspecified, F02.B0 - Dementia in other diseases classified elsewhere, moderate, without behavioral disturbance, psychotic disturbance, mood disturbance, and anxiety, G30.1 - Alzheimer's disease with late onset, I10 - Essential (primary) hypertension, N18.30 - Chronic kidney disease, stage 3 unspecified Vitamin B12 and Folate 4 Months E11.9 - Type 2 diabetes mellitus without complications, E78.5 - Hyperlipidemia, unspecified, F02.B0 - Dementia in other diseases classified elsewhere, moderate, without behavioral disturbance, psychotic disturbance, mood disturbance, and anxiety, G30.1 - Alzheimer's disease with late onset, I10 - Essential (primary) hypertension, N18.30 - Chronic kidney disease, stage 3 unspecified Quality Reporting (2019) Depression/Bipolar (159/160/161/177) PHQ-9: Total score: 0 Coding Level of Care Code Medicare Subsequent (G0439) Diagnoses HTN (hypertension) I10 Hyperlipidemia E78.5 Type 2 diabetes mellitus without complication, without long-term current use of insulin E11.9 Diabetes mellitus complication status: without complication Diabetes mellitus longterm insulin use: without manager intermediate use CKD (chronic kidney disease) stage 3, GFR 30-59 ml/min N18.30 Moderate late onset Alzheimer's dementia without behavioral disturbance, psychotic disturbance, mood disturbance, or anxiety G30.1; F02.B0 Dementia behavioral or psychological symptom: without behavioral, psychotic, or mood disturbance or anxiety Dementia severity: moderate Anemia D64.9 CPT Codes Advance Care Planning - Advance Care Planning discussion: On file, no changes ([id number]) Advance Care Planning - Time spent: 1-15 minutes, on File ([id number]) Advance Care Planning Advance Care Planning discussion: On file, no changes Forms completed: Health Care Proxy and Comfort care/DNR Time spent: 1-15 minutes, on File
--- OUTSIDE RECORDS SUMMARY | 2025-04-05 17:52 | XMS_ITS | Encounter Summary ---
Author Organization [facility] Address [address] [place] [id number] Phone Care Team Providers Care Supervisor Printing And Stamping Name Role Phone Elana Rubio MD Primary Care Provider Encounter Details Date Type Department Care Team (Late st Contact Info) Description 07/31/2023 Procedure Pass OR Admitting Dept - Virtual Department [address] [place] [address] Social History Tobacco Use Types Packs/Day Years [...] on filedocumented in this encounter Care Teams Supervisor Printing And Stamping Relationship Specialty Start Date End Date Elana Rubio MD [address] [place] [address] PCP - General Internal Medicine 06/19/23 documented as of this encounter Additional Source Comments The information contained in this document represents components of the legal health record. It is not the complete legal health record.[facility]
--- OUTSIDE RECORDS SUMMARY | 2025-04-05 17:52 | XMS_ITS | Clinical Summary ---
Author Organization [facility] Address [address] [place] [phone] Phone Care Team Providers Care Specialty Transformer Assembler Name Role Phone Elana Rubio MD Primary Care Provider [phone] Allergies Active Allergy Reactions Criticality Noted Date [...] on patient's age to complete this topic IPV VACCINES Aged Out No longer eligi ble based on patient's age to complete this topic MENINGOCOCCAL VACCINES (ACWY) Aged Out No longer eligible based on patient's age to complete this topic MENINGOCOCCAL VACCINES (B) Aged Out N o longer eligible based on patient's age to complete this topic Medical Devices Not on file Insurance MEDICARE PART A & B Member Subscriber Plan / Payer ( fective 2009-Present) Name:Lili Pineda Member ID:[id number] Relation to Subscriber:Self Name:Lili Pineda Subscriber ID:[id number] Payer ID:[id number] Group ID:Not on file Type:Medicare Address: [employer] [address] [employer] SUPPLEMENT MEDICARE PART A & B [employer] SUPPLEMENT MEDICARE PART A & B [employer] SUPPLEMENT MEDICARE PART A & B [employer] MEDEX SUPPLEMENT MEDICARE PART A & B [employer] MEDEX SUPPLEMENT MEDICARE PART A & B [employer] MEDEX SUPPLEMENT Care Teams Specialty Transformer Assembler Relationship Specialty Start Date End Date Elana Rubio MD [facility] [place] [address] PCP - General Internal Medicine 06/19/23 Additional Source Comments The information contained in this document represents components of the legal health record. It is not the complete legal health record.[facility]
--- OUTSIDE RECORDS SUMMARY | 2025-04-05 17:52 | XMS_ITS | Encounter Summary ---
Author Organization [facility] Address [address] [place] [phone] Phone Care Team Providers Care Ophthalmic Technologist Name Role Phone Elana Rubio MD Primary Care Provider [phone] Encounter Details Date Type Department Care Team (Late st Contact Info) Description 08/14/2023 Procedure Pass OR Admitting Dept - Virtual Department [address] [place] [address] Social History Tobacco Use Types Packs/Day Years [...] on filedocumented in this encounter Care Teams Ophthalmic Technologist Relationship Specialty Start Date End Date Elana Rubio MD 1960 [place], [place] [id number] PCP - General Internal Medicine 06/19/23 documented as of this encounter Additional Source Comments The information contained in this document represents components of the legal health record. It is not the complete legal health record.[facility]
== END 2025-04-05 10:16 | disposition home or self-care (01) ==
LOC: HO.HMCC 09:40
PROVIDERS: PCP Internal Medicine; Visit Provider Internal Medicine
DX: Z00.00 Encounter for general adult medical examination without abnormal findings (principal); E11.9 Type 2 diabetes mellitus without complications; N18.30 Chronic kidney disease, stage 3 unspecified; G30.1 Alzheimer's disease with late onset; F02.B0 Dementia in other diseases classified elsewhere, moderate, without behavioral disturbance, psychotic disturbance, mood disturbance, and anxiety; I10 Essential (primary) hypertension; E78.5 Hyperlipidemia, unspecified; D64.9 Anemia, unspecified